=== PATIENT | female | born 1960 | race African-American/Black ===

== ENCOUNTER 2024-12-16 14:37 | Outpatient (CLI) | payer MEDICARE, MEDICAID, SELFPAY ==
[2024-12-16 15:12] LABS: Basophils Percent Auto 0.4 % (0.2-1.2); Eosinophils Absolute Auto 0.1 K/mm3 (0-0.3); Eosinophils Percent Auto 1.8 % (0-4.4); Hematocrit 39.4 % (37.0-47.0); Hemoglobin 13.1 g/dL (12.0-15.0); Immature Granulocyte Absolute 0.02 K/mm3 (0.00-0.031); Immature Granulocyte Percent A 0.3 % (0-0.5); Lymphocytes Absolute Auto 1.42 K/mm3 (0.9-3.2); Lymphocytes Percent Auto 19.4 % (18.3-44.2); Mean Corpuscular HGB Conc 33.2 g/dl (32-36); Mean Corpuscular Hemoglobin 30.1 pg (26-34); Mean Corpuscular Volume 90.6 fl (80-100); Mean Platelet Volume 10.1 fl (7.4-10.4); Monocytes Absolute Auto 0.4 K/mm3 (0.1-0.6); Neutrophils Absolute Auto 5.3 K/mm3 (1.3-6.7); Neutrophils Percent Auto 72.1 % (45.5-73.1); Platelet Count Result 230 k/mm3 (150-375); Red Blood Count 4.35 M/mm3 (4.2-5.4); Red Cell Distribution Width 13.4 % (11.5-14.5); White Blood Count 7.3 K/mm3 (4.5-10.0)
--- OUTSIDE RECORDS SUMMARY | 2024-12-16 15:24 | XMS_ITS | Data Portability ---
Author Organization MD Brandie [facility], [facility] Address [address] [facility] [address] [place] [address] Assessment No assessment recorded. Plan of Treatment Reminders Order Date Submit Date Provider Last Modified By Organization Details Last Modified Time Details Appointments None record ed. Lab None record ed. Referral None record ed. Procedures None record ed. Surgeries None record ed. Imaging None record ed. Medication Orders None record ed. Patient TargetsNo targets recorded. Patient Instructions Encounter Date Encounter Id Patient Instructions Last Modified By Organization Details Last Modified Time 10/20/2024 [id number] Continue all medications as prescribed Follow-up with PCP as scheduled Not available 10/21/2024 08:13:33 11/12/2024 [id number] Continue all medications as prescribed Follow-up with PCP and consulting specialists as scheduled Continue sigmoidoscopy every 3 months [id number] Not available 11/18/2024 20:55:16 Reason for Referral None Reported. Medical Equipment None Reported. Medications Name Sig Start Date Stop Date Status Note LastModified by Organization Details LastModified Time atorvastati n 40 mg tablet active Not Available Not Available Not Available hydrocodone 5 mg-acetamin ophen 325 mg tablet TAKE 1-2 TABLETS BY MOUTH EVERY 4 HOURS NEEDED FOR PAIN 10/21 completed Not Available Not Available Not Available acetaminoph en 300 mg-codeine 30 mg tablet TAKE 1 TABLET BY MOUTH WITH FOOD EVERY 6 HOURS NEEDED FOR PAIN DIRECTED 10/22 completed Not Available Not Available Not Available ciprofloxac in 500 mg tablet TAKE 1 TABLET BY MOUTH TWICE DAILY X10 DAYS 10/21 completed Not Available Not Available Not Available aspirin 81 mg tablet,chandu yed release TAKE ONE TABLET BY MOUTH ONE TIME DAILY active Not Available Not Available No t Available acetaminoph en 500 mg tablet Take 2 tablets every 6 hours by oral route. active Not Available Not Available No t Available amlodipine 10 mg tablet TAKE ONE TABLET BY MOUTH ONE TIME DAILY active Not Available Not Available No t Available pantoprazol e 40 mg tablet,chandu yed release TAKE ONE TABLET BY MOUTH ONE TIME DAILY active Not Available Not Available No t Available nitroglycer in 0.[address] by sublingua l route. active Not Available Not Available No t Available hydrochloro thiazide 25 mg tablet active Not Available Not Available No t Available oxybutynin chloride 5 mg tablet active Not Available Not Available No t Available lisinopril 40 mg tablet TAKE 1 TABLET BY MOUTH TWICE DAILY active Not Available Not Available No t Available cyclobenzap rine 5 mg tablet 10/22 completed Not Available Not Available Not Available Dulcolax Stool Softener (docusate) 100 mg capsule Take 1 capsule every day by oral route. active Not Available Not Available No t Available Vitals Date Recorded Body height Body mass index (BMI) Body weight Provider Name and Address Organization Details Last Updated DateTime 10/20/2024 170.18 cm 31.6 kg/m2 95155.66 g PATRICIA CORONADO, [employer] [address], [address], [facility] 10/22/2024 23:01:02 Date Recorded Body height Body mass index (BMI) Body weight Provider Name and Address Organization Details Last Updated DateTime 11/12/2024 170.18 cm 31.3 kg/m2 92566.47 g PATRICIA CORONADO, [employer] [address], [address], [facility] 11/12/2024 17:26:50 Social History Question Answer Notes LastModified by Organizat ion Details LastModified Time How Is The Health Risk Assessment Being Completed? Phone Interview -1975 Information not available 10/21/2024 Who Is Answering The Questions? Member -1975 Information not available 10/21/2024 What Is Your Primary Language? Macedonian Information no t available 10/21/2024 Are You Of , , Or [place]an Origin? No Information n ot available 10/21/2024 What Is Your Primary Race? Black/ Information not available 10/21/2024 Are You A ? No Inform ation not available 10/21/2024 If You Are A [place], Do You Get Health Care At The [facility]? None -1973 Information not available 10/21/2024 If Yes, Please Provide The Name Of The [facility] Or Address None Information not available 10/21/2024 What Is Your Marital Status? -1975 Information not available 11/12/2024 Name Of Primary Care Physician Dr Pancho Okeefe Information not available 11/12/2024 Do You Have A Living Will? No Information not available 10/21/2024 Do You Have A POA? No Inform ation not available 10/21/2024 Do You Have An Advanced Directive? No Information not available 10/21/2024 Do You Have A Caregiver? No Information not available 10/21/2024 Caregiver Name And Phone Number None Information not available 10/21/2024 Do You Have A Health Care Proxy? No Information n ot available 10/21/2024 What Is Your Height? 5 Feet 7 Inches -1975 Information not available 10/21/2024 Do You Have Any Allergies Yes Information not available 10/21/2024 If Yes, Please List Your Allergies PCN Information not available 10/21/2024 How Many Prescription Drugs Do You Take? 1 To 5 Information not available 10/21/2024 How Many Days A Week Do You Normally Get 20 Minutes Or More Of Exercise/activity? 0-2 Days Information n ot available 11/12/2024 Do You Currently Suffer From Any Pain? (Chronic Or Acute) No Information not available 11/12/2024 On A Scale Of 1-5, How Do You Rate Your Pain? None Information not available 11/12/2024 Over The Past 7 Days, How Many Servings Of Fruits Or Vegetables Did You Eat Each Day? 3 Or More -1973 Information no t available 11/12/2024 Are You On A Special Diet For Medical Or Personal Reason? No Information not available 10/21/2024 If You Are On A Special Diet Please Indicate What Type Of Diet: None Information n ot available 10/21/2024 Do You Currently Or Have You Ever Been Told You Have Asthma? No Information not available 10/21/2024 Do You Currently Or Have You Ever Been Told You Have Arthritis? No Information not available 11/12/2024 Type Of Arthritis None Informa tion not available 10/21/2024 Do You Currently Or Have You Ever Been Told You Have Cancer? Yes Information not available 10/21/2024 Type Of Cancer Rectal Cancer Informa tion not available 11/12/2024 Do You Currently Or Have You Ever Been Told You Have Diabetes Type 1?? No Information no t available 10/21/2024 Do You Currently Or Have You Ever Been Told You Have Diabetes Type 2? No Information not available 10/21/2024 Do You Currently Or Have You Ever Been Told You Have A Heart Attack?? No Information not available 10/21/2024 Age Of Heart Attack None Information not available 10/21/2024 Do You Currently Or Have You Ever Been Told You Have Heart Failure? No Information not available 10/21/2024 Do You Currently Or Have You Ever Been Told You Have Heart Rhythm Issues? No Information not available 10/21/2024 Do You Currently Or Have You Ever Been Told You Have Vascular Disease? No Information no t available 10/21/2024 Type Of Vascular Disease None Information not available 10/21/2024 Do You Currently Or Have You Ever Been Told You Have High Cholesterol? No Information no t available 11/12/2024 Do You Currently Or Have You Ever Been Told You Have Kidney Disease? No Information not available 10/21/2024 Do You Currently Or Have You Ever Been Told You Have COPD? No Information not available 10/21/2024 Do You Currently Or Have You Ever Been Told You Have Other Lung Issues (Emphysema, Fibrosis)? No Information not available 10/21/2024 Do You Currently Or Have You Ever Been Told You Have Mental Health (anxiety, Depression, Bipolar, Schizophrenia, PTSD)? No Information not available 10/21/2024 Do You Currently Or Have You Ever Been Told You Have Neurological (Alzheimer's, Dementia, Parkinson's, Convulsions, MS)? No Information no t available 10/21/2024 Do You Currently Or Have You Ever Been Told You Have Currently ? No Information not available 10/21/2024 Do You Currently Or Have You Ever Been Told You Have A Stroke? No Information not available 10/21/2024 Do You Currently Or Have You Ever Been Told You Have Other? None Information not available 11/12/2024 How Many Times Have You Been Admitted To The Hospital In The Last 12 Months? 1-2 Times Information not available 11/12/2024 In General, Would You Say Your Health Is: Good Information not available 10/21/2024 Do You Have Any Hearing Problems For Which You Need Help Such As A Hearing Aid Or TTY? No Information not available 10/21/2024 Do You Have A Problem With Seeing Or Your Vision Which Requires Glasses/contacts? No Information no t available 11/12/2024 Do You Have Any Difficulty Walking Which Requires The Use Of A Cane, Walker, Or Wheelchair? No Information not available 10/21/2024 Do You Need Assistance Bathing? No Information not available 10/21/2024 Do You Need Assistance Transferring: Getting In And Out Of A Chair Or A Bed? No Information not available 10/21/2024 Do You Need Assistance Dressing: This Includes Taking Clothes Off And Putting Clothes On, Reaching Above Your Head, And Using Buttons And Zippers? No Information not available 10/21/2024 Do You Need Assistance Eating: This Includes Cutting Your Food And Opening Any Containers With Food Inside? No Information not available 10/21/2024 Do You Need Assistance Using The Bathroom: This Includes Pulling Clothes Up And Down, And Cleaning Yourself? No Information not available 10/21/2024 Do You Need Assistance Walking: Walking More Than 10 Feet Without Using A Walker, Cane, Or Holding Onto Furniture? No Information not available 10/21/2024 Do You Need Assistance Using The Phone? No Information not available 10/21/2024 Do You Need Assistance With Transportation? No Information not available 10/21/2024 Do You Need Assistance With Housework: This Includes Sweeping, Mopping, Changing Sheets, And Taking Out The Trash? No Information not available 10/21/2024 Do You Need Assistance With Laundry: This Includes Washing, Drying, Ironing, Folding Clothing, And House Items? No Information not available 10/21/2024 Do You Need Assistance With Making Your Meals: This Includes Cleaning Food, Cutting Foods, And Cooking? No Information not available 10/21/2024 Do You Need Assistance With Shopping: This Includes Getting Groceries And Other Items Needed For Your Home? No Information not available 10/21/2024 Do You Need Assistance With Medication Management: This Includes Taking Your Medications On Time, Getting Refills? No Information not available 10/21/2024 Do You Smoke Or Use Tobacco Products? No Information not available 10/21/2024 Do You Use Recreational Drugs? No Information not available 10/21/2024 How Many Alcoholic Drinks Do You Have In A Normal Week? 0 Information no t available 10/21/2024 Has The Lack Of Transportation Kept You From Medical Appointments, Meetings, Work Or From Getting Things Need For Daily Living? No Information not available 10/21/2024 Are You Worried Or Concerned That In The Next Two Months You May Not Have Stable Housing That You Own, Rent, Or Stay In As A Part Of A Household? No Information not available 10/21/2024 Do You Have Problems With Bug Infestation Where You Live? No Information not available 10/21/2024 Do You Have Problems With Mold Where You Live? No Information not available 10/21/2024 Do You Have Problems With Lead Pipes Where You Live? No Information not available 10/21/2024 Do You Have Problems With No Solid Hand Rails Where You Live? No Information not available 10/21/2024 Do You Have Problems With An Oven Or Stove Not Working Where You Live? No Information not available 10/21/2024 Do You Have Problems With No Or Non-working Smoke Detectors Where You Live? No Information not available 10/21/2024 Do You Have Problems With Water Leaks Where You Live? No Information not available 10/21/2024 Do You Have Problems With Loose Rugs Where You Live? No Information not available 10/21/2024 Do You Have Problems With No Or Not Working Carbon Monoxide Detector Where You Live? No Information not available 10/21/2024 Do You Have Problems With No Good Lighting In Walkways Where You Live? No Information not available 10/21/2024 Within The Last 12 Months Have You Worried That Your Food Would Run Out Before You Had Money To Buy More? Never True Information n ot available 10/21/2024 With In The Last 12 Months, Did The Food You Bought Just Didn't Last And You Didn't Have Money To Get More? Never True Information not available 10/21/2024 Does Anyone, Including Friends And Family, Physically, Emotionally, Or Financially Try To Hurt You? No Information not available 10/21/2024 Over The Past 2 Weeks How Often Have You [place] Down, Depressed, Or Hopeless? Not At All Information not available 10/21/2024 Over The Past 2 Weeks How Often Have You [place] Little Interest Or Pleasure In Doing Things? Not At All Information not available 10/21/2024 During The Last 6 Months, Have You Experienced Any Stress? No Information not available 11/12/2024 During The Last 6 Months, Have You Experienced Any Anxiety? No Information not available 10/21/2024 During The Last 6 Months, Have You Experienced Any Loneliness? No Information not available 10/21/2024 During The Last 6 Months, Have You Experienced Any Fatigue? No Information not available 10/21/2024 Have You Had A Pap Smear (Cervical Cancer) In The Last 12 Months? No Information not available 11/12/2024 Have You Had A Mammogram In The Past 24 Months? Yes Information not available 10/21/2024 Have You Had A Bone Density And/or Osteoporosis Screening? Yes Information not available 10/21/2024 Have You Had A Prostate Exam? N/A Information not available 10/21/2024 Have You Had A Colorectal Cancer Screening? Yes Information not available 10/21/2024 What Type Of Colorectal Screening Have You Had? Colonoscopy Information not available 11/12/2024 Date Of Your Last Colorectal Screenin Yrs Ago ..dx With Rectal Cancer Information not available 11/12/2024 Results Of Your Last Colorectal Screening: Abnormal Information not available 11/12/2024 Have You Had A Flu Vaccine In The Last Year? Yes Information not available 10/21/2024 Have You Had A Pneumonia Vaccine? Yes Information n ot available 10/21/2024 What Is Your Weight? 202 Information not available 11/12/2024 Sex: Unknown Functional Status None recorded. Mental Status None recorded. Family History Nothing Reported. Medical History No medical history recorded. Gynecological HistoryNo gynecological history recorded. Obstetrics History GPAL:G 0 P 0 0 0 0 Past Encounters Encounter ID Performer Location Encounter Start Date Encounter Closed Date Diagnosis/Indication Diagnosis SNOMED-CT Code Diagnosis ICD10 Code Diagnosis Note [id number] GRACIELA HOPSON [facility] [address] [address] 10/20/2024 17:14:26 11/19/2024 18:54:54 Essential hypertension 74737761 I10 Stable- continue HCTZ and lisinopril as prescribed Follow-up with PCP as scheduled Hyperlipidemia 90348079 E78.5 Stable- continue atorvastat in as prescribed Follow-up with PCP as scheduled Gastroesop hageal reflux disease without esophagitis 656597028 K21.9 Stable- continue pantoprazo le as prescribed Follow-up with PCP as scheduled Osteoarthr itis of lumbar spinal facet joint 553267648 M47.9 Stable- continue acetaminop hen as prescribed Follow-up with PCP as scheduled [id number] GRACIELA HOPSON [facility] [address] [place] [address] 11/12/2024 17:01:41 11/27/2024 12:08:01 Gastroesophageal reflux disease 317135184 K21.9 Stable- continue pantoprazo le as prescribed Follow-up with PCP as scheduled Stable angina 207072651 I20.89 Stable- continue nitroglyce rin as prescribed Follow-up with PCP as scheduled Essential hypertension 89908717 I10 Stable- continue amlodipine , HCTZ and lisinopril as prescribed Follow-up with PCP as scheduled Hyperlipidemia 80216687 E78.5 Stable- continue atorvastat in as prescribed Follow-up with PCP as scheduled Constipation 61646161 K5 9.00 Stable- continue dulcolax as prescribed Follow-up with PCP as scheduled Osteoarthr itis of lumbar spinal facet joint 602258865 M47.9 Stable- continue acetaminop hen as prescribed Follow-up with PCP as scheduled Overactive urinary bladder 446477136 N32.81 Stable- continue oxybutynin as prescribed Follow-up with PCP as scheduled Health Concerns Section Related Observation LastModified by Organization Detai ls LastModified Time None Recorded Concern Status LastModified by Organization Details LastModified Time None Recorded Advance Directives Directive None Recorded Payers Encounter Date Sequence Insurance Name Policy Number Policy Sears Covered Member ID Sears Member ID Guarantor Name 10/20/2024 1 [facility] (MEDICARE REPLACEMENT/A DVANTAGE - HMO) [id number] Louisa Ochoa [id number] Louisa Ochoa 11/12/2024 1 [facility] (MEDICARE REPLACEMENT/A DVANTAGE - HMO) [id number] Louisa Ochoa [id number] Louisa Ochoa Notes Date Note Type Note Provider Name and Address Organization Details Recorded Time 10/20/2024 text/html 63 y/o AAF who w as seen for a Synchronous audio-visual telehealth visit. Recently relocated from [place] and in need of sigmoidoscopy. GRACIELA HOPSON [address] [address], [place], [phone], [facility] 10/22/2024 23:15:07 11/12/2024 text/html 64 y/o female wh o was seen for a Synchronous audio-visual telehealth visit. GRACIELA HOPSON [address] [address], [place], [phone], [facility] 11/18/2024 20:55:33 OBGyn Episode No OBEpisode recorded.
--- OUTSIDE RECORDS SUMMARY | 2024-12-16 15:25 | XMS_ITS | Data Portability ---
Author Organization [place] - [facility] Address [address] [place] [address] Care Team Providers Care Pompom Maker Name Role Phone MARIANNE ANABEL Referring Provider [phone] Assessment Encounter Date Assessment Date Assessment LastModified by Organization Details LastModified Time 05/28/2023 05/28/2023 Wrist splints at night time only x 6 weeks PT for neck pain/paresthe [email or web address] RTC 2mo --- reassess, consider emg/ncs at that time. [email or web address] Not available 05/28/2023 17:24:07 07/31/2023 07/31/2023 Continue Wrist splints at night PT for neck pain/tension RTC 3mo [email or web address] Not available 07/31/2023 15:18:49 10/25/2023 10/25/2023 Continue Wrist splints at night RTC PRN new or worsening symptoms [email or web address] Not available 10/25/2023 13:14:45 Plan of Treatment Reminders Order Date Submit Date Provider Last Modified By Organization Details Last Modified Time Details Appointments None recorded. Lab None recorded. Referral physical therapist referral 2022 023 [email or web address], [address] [place], [address], 13:17:08 Procedures None recorded. Surgeries None recorded. Imaging None recorded. Medication Orders None recorded. Patient TargetsNo targets recorded. Patient Instructions Encounter Date Encounter Id Patient Instructions Last Modified By Organization Details Last Modified Time 05/28/[id number] Yumiko Pugh . I provided direction and supervision to FIELD ADMINISTRATIVE ASSISTANT at time of the visit. I developed and plan of care and I agree with the contents of this note including assessment and plan. [email or web address] Not available 06/08/2023 15:25:15 Reason for Referral Physical Therapist Referral for Neck pain Referring Physician: Marilyn Mcgee, Neurology, Encounter Date: 05/28/2023 Problems Name Problem SNOMED Code Status Onset Date Resolution Date Notes Provider Name and Address Organization Details Recorded Time Paresthesia of upper limb 41000924 Active 2022 [place] [address], [address], [address] , [facility] 17:16:08 Neck pain 90783941 Active 2022 [place] [address] [address], [address], [place], [address] , [facility] 17:22:29 Problem Notes None recorded. Procedures Surgical History Date Name Laterality Status Provider Name and Address Organization Details Recorded Time Hysterectomy completed Elvin Roman [place] - [facility] 05/28/2023 16:28:42 Imaging Results None recorded. Procedure Notes None recorded. Medical Equipment None Reported. Allergies No known drug allergies Medications Name Sig Start Date Stop Date Status Note LastModified by Organization Details LastModified Time potassium chloride ER 10 mEq capsule,ext ended release 05/28 completed Not Available Not Available Not Available acetaminoph en 325 mg tablet Take 2 tablets by mouth every 6 hours if needed for mild pain, moderate pain, headaches or fever. active Not Available Not Available No t Available atorvastati n 20 mg tablet TAKE ONE TABLET BY MOUTH ONE TIME DAILY AT NIGHT active Not Available Not Available No t Available clindamycin HCl 300 mg capsule TAKE 2 CAPSULES BY MOUTH 3 TIMES DAILY. 05/28 completed Not Available Not Available Not Available atorvastati n 10 mg tablet TAKE ONE TABLET BY MOUTH ONE TIME DAILY 07/31 completed Not Available Not Available Not Available ondansetron HCl 4 mg tablet TAKE ONE TABLET BY MOUTH EVERY EIGHT HOURS NEEDED FOR NAUSEA/VO MITING FOR 5 DAYS 05/28 completed Not Available Not Available Not Available Pedialyte oral solution 10/25 completed Not Available Not Available Not Available erythromyci n 500 mg tablet,chandu yed release TAKE 1 TABLET BY MOUTH EVERY 8 HOURS DAILY. 05/28 completed Not Available Not Available Not Available metronidazo le 500 mg tablet 05/28 completed Not Available Not Available Not Available aspirin 81 mg tablet,chandu yed release TAKE ONE TABLET BY MOUTH ONE TIME DAILY active Not Available Not Available No t Available acetaminoph en 500 mg tablet TAKE ONE OR TWO TABLETS BY MOUTH EVERY SIX HOURS NEEDED FOR PAIN/ FEVER. MAX 6 TABLETS IN 24 HOURS 05/28 completed Not Available Not Available Not Available Fleet Enema 19 gram-7 gram/118 mL Start 1st enema rectally 3 hours prior to check in. After stooling from the 1st enema, repeat the process using 2nd enema 05/28 completed Not Available Not Available Not Available famotidine 20 mg tablet TAKE ONE TABLET BY MOUTH TWICE DAILY NEEDED FOR GERD/FRANCISCO JAVIER RITIS 05/28 completed Not Available Not Available Not Available amlodipine 10 mg tablet TAKE ONE TABLET BY MOUTH ONE TIME DAILY active Not Available Not Available No t Available pantoprazol e 40 mg tablet,chandu yed release TAKE ONE TABLET BY MOUTH DAILY NEEDED FOR GERD/FRANCISCO JAVIER RITIS active Not Available Not Available No t Available nitroglycer in 0.[address] 1 tablet (0.4MG) by sublingua l route as needed for chest pain. May repeat every 5 minutes x 2. Maximum 3 tablets. Go to ER if chest pain persists active Not Available Not Available No t Available docusate sodium 100 mg capsule active Not Available Not Available N ot Available hydrochloro thiazide 25 mg tablet TAKE ONE TABLET BY MOUTH ONE TIME DAILY active Not Available Not Available No t Available lorazepam 1 mg tablet Take 1 tablet (0.5 mg) orally one hour prior to imaging, may repeat dose once if ineffecti ve after 30 minutes. 05/28 completed Not Available Not Available Not Available ibuprofen 600 mg tablet TAKE 1 TABLET BY MOUTH 3 TIMES DAILY WITH FOOD NEEDED. active Not Available Not Available No t Available neomycin 500 mg tablet 05/28 completed Not Available Not Available Not Available docusate sodium 250 mg capsule 07/31 completed Not Available Not Available Not Available oxybutynin chloride 5 mg tablet TAKE ONE TABLET BY MOUTH TWICE DAILY active Not Available Not Available No t Available lisinopril 40 mg tablet TAKE ONE TABLET BY MOUTH TWICE DAILY active Not Available Not Available No t Available ondansetron 4 mg disintegrat ing tablet active Not Available Not Available N ot Available oxycodone 5 mg tablet 07/31 completed Not Available Not Available Not Available azithromyci n 500 mg tablet 10/25 completed Not Available Not Available Not Available Oyster Shell Calcium-Vit carrasco D3 500 mg-10 mcg (400 unit) tablet TAKE ONE TABLET BY MOUTH TWICE DAILY active Not Available Not Available No t Available Gavilyte-C 240 gram-22.72 gram-6.72 gram-5.84 gram oral solution TAKE DIRECTED. 05/28 completed Not Available Not Available Not Available GaviLyte-G 236 gram-22.74 gram-6.74 gram-5.86 gram oral solution Take by mouth as directed per the Bowel Prep Instructi ons Schedule. 07/31 completed Not Available Not Available Not Available ClearLax 17 gram/dose oral powder mix 17g with 8 oz. water, juice, soda, coffee or tea and take by mouth daily active Not Available Not Available No t Available Flowflex COVID-19 Antigen Home Test kit ADMINISTE R PER PROTOCOL 05/28 completed Not Available Not Available Not Available Vitals Date Recorded Body weight Heart rate Systolic blood pressure Diastolic blood pressure Provider Name and Address Organization Details Last Updated DateTime 05/28/2023 85977.47 g 88 /min 138 mm[Hg] 83 mm[Hg] Elvin Roman [place] - [facility] 05/28/2023 16:31:06 Date Recorded Heart rate Systolic blood pressure Diastolic blood pressure Provider Name and Address Organization Details Last Updated DateTime 07/31/2023 83 /min 127 mm[Hg] 81 mm[Hg] Maxwell Alicea [place] - [facility] 07/31/2023 14:52:12 Date Recorded Body weight Body mass index (BMI) Body height Heart rate Systolic blood pressure Diastolic blood pressure Provider Name and Address Organization Details Last Updated DateTime 3 47217.4 7 g 31.3 kg/m2 170.18 cm 74 /min 150 mm[Hg] 95 mm[Hg] Fatimah Deras [place] - [facility] 3 12:57:00 Social History Question Answer Notes LastModified by Organizat ion Details LastModified Time 1. Alcohol Do Not Drink Information not available 05/28/2023 2. Drug Use Never User Information not available 05/28/2023 3. Marijuana Never User Information not available 05/28/2023 4. Marital Status Single Information not available 05/28/2023 5. Occupation Unemployed Social Security For Medical Reasons [email or web address] Information not available 05/28/2023 Sex: Unknown Functional Status None recorded. Mental Status None recorded. Family History Relationship Description Onset Age of this Age Resolved Age Notes LastModified by Organization Details LastModified Time Father Malignant neoplasm of liver Not available 05/06 16:25:09 Father Dementia Not availa ble 05/28/2023 16:25:19 Mother Congestive heart failure [email or web address] Not available 05/06 16:25:27 Medical History Condition Response High Blood Pressure Y Atrial Fibrillation N Head Trauma/Injury N Depression N Brain Aneurysm N Anxiety Disorder N Stroke N Kidney Disease N Migraines N Brain Tumors N Ulcers N Bleeding Disorder N Seizures N No previous medical history N High Cholesterol Y Respiratory Problems N Thyroid Problems N Anemia N Multiple Sclerosis N Diabetes N Syncope N Sleep Apnea N Heart Disease N Gynecological HistoryNo gynecological history recorded. Obstetrics History GPAL:G 0 P 0 0 0 0 Past Encounters Encounter ID Performer Location Encounter Start Date Encounter Closed Date Diagnosis/Indication Diagnosis SNOMED-CT Code Diagnosis ICD10 Code Diagnosis Note [id number] MD Regla [facility] [place] [address] [place] [address] [address] [place] [address] 05/28/2023 16:07:24 05/28/2023 17:25:05 Paresthesia of upper limb 44949878 R20.2 Neck pain 76796031 M54.2 [id number] Marilyn Mcgee NP [address] [place] [address] 07/31/2023 14:29:07 08/01/2023 01:14:03 Neck pain 08574923 M54.2 Paresthesi a of upper limb 73308173 R20.2 IMPROVED [id number] Marilyn Mcgee NP [place] [address] [place] [address] [address] [place] [address] 10/25/2023 12:30:01 10/25/2023 13:14:41 Paresthesia of upper limb 75678375 R20.2 resolved with wrist splinting Neck pain 52638502 M54.2 resolved Health Concerns Section Related Observation LastModified by Organization Detai ls LastModified Time None Recorded Concern Status LastModified by Organization Details LastModified Time None Recorded Advance Directives Directive None Recorded Payers Encounter Date Sequence Insurance Name Policy Number Policy Sears Covered Member ID Sears Member ID Guarantor Name 05/28/2023 2 [facility] (MEDICAID REPLACEMENT HMO) Louisa Ochoa [id number] Louisa Ochoa 07/31/2023 2 [facility] (MEDICAID REPLACEMENT HMO) Louisa Ochoa [id number] Louisa Ochoa 10/25/2023 2 [facility] (MEDICAID REPLACEMENT HMO) Louisa Ochoa [id number] Louisa Ochoa 10/25/2023 1 [place]ICARE [place]: [facility] Louisa Ochoa [id number] Louisa Ochoa Notes Date Note Type Note Provider Name and Address Organization Details Recorded Time 05/28/2023 text/html 62 yo female referred to the clinic for numbness in bilateral hands. Onset of symptoms 1 year ago. She c/o numbness in hands, wakes up in the middle of the night and her hands are asleep. She reports it only happens when lying on extremities. After she moves around symptoms resolve. NO electrical stabbing pains. She c/o tension in her left trap, neck pain/tension. No focal weakness.Symptoms do not occur during the dayNo pain in wrists or [place] [address], [address], [place], [address], [facility] 06/08/2023 15:25:20 07/31/2023 text/html 62 yo female follow up for numbness in bilateral hands. Asymptomatic during the day.Wearing wrist splints at night with relief, reports no longer experiencing numbness at night.She c/o tension in her left trap, neck pain/tension. She did not go to physical therapy. No focal weakness.No pain in wrists or handsNo [place] [address], [address], [place], [address], [place] [facility] 07/31/2023 15:19:28 10/25/2023 text/html 62 yo female follow up for numbness in bilateral hands. Symptoms improved. Wearing wrist splints at night with relief, reports no longer experiencing numbness unless she forgets to wear the splint.Asymptomati c during the day.Denies neck pain/tensionNo focal weakness.No pain in wrists or handsNo [place] [address], [address], [place], [address], [place] [facility] 10/25/2023 13:15:09 OBGyn Episode No OBEpisode recorded.
--- OUTSIDE RECORDS SUMMARY | 2024-12-16 15:25 | XMS_ITS | Clinical Summary ---
Author Organization [facility] Address [address] [place] [address] Phone Care Team Providers Care Under Ground Miner Name Role Phone Bryan Saenz MD Primary Care Provider [phone] Encounters Date Type Department Care Team Description 10/09/2024 Telephone [facility] [address] [place] [address] Irene Owen from Last 3 Months Social History Tobacco Use Types Packs/Day Years Used Date Smoking Tobacco: Never Assessed Comments Unknown Sex and Gender Information Value Date Recorded Sex Assigned at Not on file Legal Sex Female 9:45 AM CDT Gender Identity Not on file Sexual Orientation Not on file Plan of Treatment Health Maintenance Due Date Last Done Comments Hepatitis C Virus (HCV) Screening 1958 Pap Smear 1979 Cervical Cancer Screening (CCS) 1988 HPV/Cotest 1988 Colonoscopy 2003 Colorectal Cancer Screening 2003 Cologuard 2008 Immunochemical Fecal Occult Blood 2008 Pneumococcal Immunization (50+ years) (1 of 1 - PCV) 2008 Zoster Immunization (1 of 2) 2008 Influenza Immunization (#1) 07/06/202409/05, 06/24/2021, 09/03/2020, Additional history exists SARS-COV-2 Immunization (2 - 2023- season) 2024 09/15/2022 DEXA Bone Density 07/30/2026 07/30/2024 Mammogram 07/30/2026 07/30/2024 Respiratory Syncytial Virus (RSV) Immunization (Adult) (1 - 1-dose 75+ series) 2033 TdaP Immunization Completed 07/02/2017, 09/08/2009 Hepatitis B Immunization Aged Out No longer eligible based on patient's age to complete this topic Meningococcal Immunization (ACWY) Aged Out No longer eligible based on patient's age to complete this topic Rotavirus Immunization Aged Out No lo nger eligible based on patient's age to complete this topic [facility] Teams Under Ground Miner Relationship Specialty Start Date End Date Bryan Saenz MD [address] [place] [address] PCP - General Family Medicine 07/29/24
--- OUTSIDE RECORDS SUMMARY | 2024-12-16 15:25 | XMS_ITS | Clinical Summary ---
Author Organization [facility] Address [address] [place] [address] Care Team Providers [employer] Name Role Phone Bryan Saenz MD Primary Care Provider [phone] Allergies Active Allergy Reactions Criticality Noted Date Comments Diphenhydramine Hives,Rash Medium 06/08/2023 Domiphen Hives Medium 06/08/2023 Penicillin Swollen tongue High 05/06/2023 Penicillins Hives High 09/12/2011 Pravastatin Hives Medium 06/08/2023 Medications amLODIPine (NORVASC) 10 mg tablet Take 1 tablet (10 mg total) by mouth daily 90 tablet 3 03/05/20 24 Active aspirin 81 mg enteric coated tablet Take 1 tablet (81 mg total) by mouth daily 90 tablet 3 03/05/20 24 Active oxyBUTYnin (DITROPAN) 5 mg tablet Take 1 tablet (5 mg total) by mouth 2 (two) times a day 180 tablet 3 03/05/20 24 Active lisinopriL (PRINIVIL,ZESTRIL) 40 mg tablet Take 1 tablet (40 mg total) by mouth daily 90 tablet 3 03/05/[address] (PROTONIX) 40 mg EC tablet Take 1 tablet (40 mg total) by mouth daily 90 tablet 3 03/05/20 24 Active multivit-min/iron/FA/vit K/lut (CENTRUM SILVER WOMEN ORAL) Take 1 tablet by mouth daily 02/28/20 23 Active famotidine (PEPCID) 20 mg tablet Take by mouth as needed 08/08/20 22 Active calcium carbonate-vitamin D3 (Calcium 500 + D) 1,250 mg (500 mg elemental)-400 unit tablet Take 1 tablet by mouth 2 (two) times a day 02/28/20 23 Active atorvastatin (LIPITOR) 40 mg tabletIndications:Pure hypercholesterolemia Take 1 tablet (40 mg total) by mouth daily 90 tablet 3 04/23/20 24 025 Active nitroglycerin (NITROSTAT) 0.[address] 1 TABLET (0.4 MG TOTAL) UNDER THE TONGUE EVERY 5 (FIVE) MINUTES NEEDED FOR CHEST PAIN 50 tablet 5 04/27/20 24 Active HYDROcodone-acetaminophe n (NORCO) 5-325 mg per tabletIndications:Pain Take 1-2 tablets by mouth every 4 (four) hours as needed for pain Do not exceed 8 tablets/day . 20 tablet 09/09/20 24 Active polyethylene glycol (MIRALAX) 17 gram packetIndications:consti pation Take 1 packet (17 g total) by mouth 2 (two) times a day Active hydroCHLOROthiazide (HYDRODIURIL) 25 mg tablet Take 1 tablet (25 mg total) by mouth daily Active Active Problems Problem Noted Date Diagnosed Date Musculoskeletal chest pain 10/31/2024 Hypertension, essential 03/03/2024 Assessment & Plan (06/02/2024 11:52 AM CDT): Blood Pressure Management BP Readings from Last 3 Encounters: 06/02/24 130/82 03/19/24 154/73 03/03/24 120/70 Chronic condition Status - is well controlled. Current medications are: Lisinopril 40 mg daily, HCTZ 25 mg daily, Amlodipine 10 mg daily Patient is compliant with medications. Patient denies any side effects or adverse side effects from the medication/s. Follow a low salt diet Monitor blood pressure regularly at home Continue current management unless change made above The 10-year ASCVD risk score (Estela MALDONADO, et al., 2019) is: 6.8% Values used to calculate the score: Age: 63 years Sex: Female Is Non- : Yes Diabetic: No Tobacco smoker: No Systolic Blood Pressure: 130 mmHg Is BP treated: Yes HDL Cholesterol: 63 mg/dL Total Cholesterol: 142 mg/dL Lab Results Component Value Date LDLCALC 64 03/03/2024 Lab Results Component Value Date GLUCOSE 99 03/19/2024 CALCIUM 10.4 (H) 03/19/2024 SODIUM 138 03/19/2024 POTASSIUM 3.6 03/19/2024 CO2 24 03/19/2024 CHLORIDE 102 03/19/2024 BUNSER 15 03/19/2024 CREATININE 0.93 03/19/2024 Assessment & Plan (03/03/2024 8:54 AM CDT): Blood Pressure Management BP Readings from Last 3 Encounters: 03/03/24 120/70 12/30/23 147/68 12/23/23 144/77 Chronic condition Status - is adequately controlled. Current medications are: Lisinopril 40 mg daily, HCTZ 25 mg daily, Amlodipine 10 mg daily Patient is compliant with medications. Patient denies any side effects or adverse side effects from the medication/s. Follow a low salt diet Monitor blood pressure regularly at home Continue current management unless change made above The ASCVD Risk score (Estela MALDONADO, et al., 2019) failed to calculate for the following reasons: Cannot find a previous HDL lab Cannot find a previous total cholesterol lab The smoking status is invalid No results found for: LDLCALC Lab Results Component Value Date GLUCOSE 95 12/30/2023 CALCIUM 11.0 (H) 12/30/2023 SODIUM 139 12/30/2023 POTASSIUM 4.0 12/30/2023 CO2 29 12/30/2023 CHLORIDE 100 12/30/2023 BUNSER 15 12/30/2023 CREATININE 0.85 12/30/2023 Pure hypercholesterolemia 03/03/2024 Assessment & Plan (06/02/2024 11:23 AM CDT): - chronic condition - status: is adequately controlled. - current management/medications: Atorvastatin 10 mg nightly - other comorbid conditions:hypertension, Obesity - patient is compliant with medications. - most recent LDL as shown below - maintain a healthy weight, diet - will monitor closely - continue current management Lab Results Component Value Date CHOL 142 03/03/2024 Lab Results Component Value Date HDL 63 03/03/2024 Lab Results Component Value Date LDLCALC 64 03/03/2024 Lab Results Component Value Date TRIG 73 03/03/2024 Lab Results Component Value Date ALT 13 03/19/2024 AST 18 03/19/2024 ALKPHOS 102 03/19/2024 BILITOT 0.7 03/19/2024 Assessment & Plan (03/03/2024 8:45 AM CDT): - chronic condition - status: is adequately controlled. - current management/medications: Atorvastatin 10 mg nightly - other comorbid conditions:hypertension, Obesity - patient is compliant with medications. - most recent LDL as shown below - maintain a healthy weight, diet - will monitor closely - continue current management Lipi dpanel 09/2023 as shown below CHOLESTEROL, TOTAL <200 mg/dL 134 HDL CHOLESTEROL > OR = 50 mg/dL 62 TRIGLYCERIDES <150 mg/dL 55 [facility] LDL-CHOLESTEROL mg/dL (calc) No results found for: LDLCALC Lab Results Component Value Date ALT 22 12/30/2023 AST 23 12/30/2023 ALKPHOS 87 12/30/2023 BILITOT 0.3 12/30/2023 Prediabetes 03/03/2024 Assessment & Plan (06/02/2024 11:19 AM CDT): - chronic condition, not at goal - not on any medications, managed via lifestyle - has been eating better - continue current management - check labs, orders placed with results as shown below A1c 6.2 on Lab Results Component Value Date HGBA1C 6.5 (H) 03/03/2024 A1c 09/2023 = 6.1 Assessment & Plan (03/03/2024 8:44 AM CDT): - chronic condition, stable status - not on any medications, managed via lifestyle - continue current management - check labs, orders placed A1c 09/2023 = 6.1 No results found for: HGBA1C Adenocarcinoma of rectosigmoid junction (CMS/HCC ) 03/03/2024 Assessment & Plan (06/02/2024 11:29 AM CDT): - history of T2 N0 rectal cancer status post robotic TAMIS on 12/20/2022 - was following with Oncology in [place] and was under surveillance - has hx of partial hysterectomy - established care here with oncology - has had imaging MRI of pelvis, CT Chest abdomen and pelvis without any recurrence of metastatic disease - done on 03/2024 - she has been referred to GI by Oncology already MRI Pelvis Soft Tissue W/WO Contrast 09/2023 IMPRESSION: 1. No definite evidence of residual, recurrent, or metastatic disease in the pelvis. 2. Stable 6 mm mesorectal node with rounded morphology. Attention on follow-up. Assessment & Plan (03/03/2024 9:30 AM CDT): - history of T2 N0 rectal cancer status post robotic TAMIS on 12/20/2022 - was following with Oncology in [place] and was under surveillance - has hx of partial hysterectomy - establish care here with oncology, referral placed MRI Pelvis Soft Tissue W/WO Contrast 09/2023 IMPRESSION: 1. No definite evidence of residual, recurrent, or metastatic disease in the pelvis. 2. Stable 6 mm mesorectal node with rounded morphology. Attention on follow-up. DDD (degenerative disc disease), cervical 2023 Assessment & Plan (03/03/2024 9:01 AM CDT): - chronic condition - reviewed MRI of cervical spine as shown below - states she was given a wrist brace to use at [facility] as she wakes up with numbness in her arm - denies any neck pain at this time MRI Cervical spine WO Contrast 02/2023 Reason for Exam: Cervical spondylosis with radiculopathy, weakness, or numbness, left DISCS/SPINAL CANAL/NEURAL FORAMINA: C2-C3: Mild spinal canal stenosis measuring 9 mm no neuroforaminal stenosis. C3-C4: 2.5 mm disc bulge. Moderate spinal canal stenosis measuring 8 mm. Mild anterior cord deformity . Mild right and moderate left neural foraminal stenosis. Anterior and posterior osteophytes noted. C4-C5: 1.5 m disc bulge. Moderate spinal canal stenosis measuring 8 mm with mild ventral cord deformity mild bilateral neuro foraminal stenosis. Anterior and posterior osteophytes noted. C5-C6: 2 mm central disc herniation. Mild spinal canal stenosis measuring 1.0 cm. No right neural femoral stenosis. Moderate left neural femoral stenosis. C6-C7: 2.5 mm disc bulge. Mild spinal canal stenosis measuring 1.0 cm mild right and no left neural foraminal stenosis. Anterior and posterior osteophytes noted. Modic type I changes. C7-T1: 3 mm disc bulge with 3 mm grade 1 anterolisthesis of C7 on T1. No spinal canal stenosis. Mild bilateral neural foraminal stenosis. Impression 1. Degenerative changes in the cervical spine as described. GERD (gastroesophageal reflux disease) Assessment & Plan (06/02/2024 11:08 AM CDT): - chronic condition, stable - currently on Pantoprazole 40 mg daily - she is not sure if she has had an EGD before or not - Continue on current meds, encouraged healthy diet and exercise - Discussed increased risk of cdif and vit B12 deficiency with usp use of PPI. - continue current management Recommend the following changes: - Avoid trigger foods (such as spicy foods, fried foods, onions, peppermints, chocolate, high acid foods and juices, caffeinated beverages, carbonated beverages, and tomato based products). - Avoid alcohol take. - Avoid routine use of NSAIDs. - Avoid lying down for 2-3 hours after eating. - Weight loss encouraged. - Eat smaller meals. - Avoid tobacco use. - Sleep on left side. - may sleep with bed propped. - Avoid wearing tight clothing that puts pressure on the stomach. 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 - recheck labs, orders placed Recommend the following changes: - Avoid trigger foods (such as spicy foods, fried foods, onions, peppermints, chocolate, high acid foods and juices, caffeinated beverages, carbonated beverages, and tomato based products). - Avoid alcohol take. - Avoid routine use of NSAIDs. - Avoid lying down for 2-3 hours after eating. - Weight loss encouraged. - Eat smaller meals. - Avoid tobacco use. - Sleep on left side. - may sleep with bed propped. - Avoid wearing tight clothing that puts pressure on the stomach. Other chest pain 03/03/2024 Assessment & Plan (03/03/2024 9:29 AM CDT): - chronic, recurring issue for over a year - describes it as severe chest pain - very sharp pain that radiates into her neck, occurring every 3 or more months, but has not had any since beginning of 2023 - s/p stress testing on 02/2023 as shown below - she was seen in ED in year 2022 - states has had 2 stress tests in the past 3 years - she was given nitroglycerine which she uses as needed every few months which resolved it in few minutes - currently also on aspirin 81 mg daily, she does not know why she was started on the medication - on statin therapy for pure hypercholesterolemia - suspect it could be esophageal spasms and she also has known GERD --> recommend GI evaluation in the near future S/p cardiac stress test 02/2023 NM Cardiac Stress [employer] NM Cardiac Rest/Stress [employer] Reason for Exam: Angina pectoris or anginal equiv sympt Impression: No evidence of reversible myocardial perfusion defect Primary osteoarthritis of knees, bilateral 03/03 Assessment & Plan (06/02/2024 11:22 AM CDT): - chronic, recurring issue - had reported she is bone on bone on both knees - obtained XR of bilateral knees in prior visit, results as shown below - she is not bone on bone, inform patient about it - pain with going down the stairs in an issue - recommend use of tylenol as needed for now XR bilateral knee 02/26 XR KNEE BILATERAL 3 VIEWS REASON FOR STUDY: chronic bilateral knee pain, reports hx of OA Chronic knee pain No surgeries or injections States getting updated XR for new doctor FINDINGS: Three views each knee submitted without comparison. No acute fractures are identified. Alignment is normal. There is mild lateral predominant tricompartmental bilateral knee osteoarthritis. Trace effusions are present. Arterial atherosclerosis is noted. IMPRESSION: Mild lateral predominant tricompartmental bilateral knee osteoarthritis. Assessment & Plan (03/03/2024 9:29 AM CDT): - chronic, recurring issue - reports she is bone on bone on both knees - obtain XR of bilateral knees, order placed Personal history of tobacco use 03/03/2024 Assessment & Plan (06/02/2024 11:22 AM CDT): Social History Tobacco Use Smoking Status Former Average packs/day: 0.1 packs/day for 36.0 years (2.7 ttl pk-yrs) Types: Cigarettes Start date: 1979 Smokeless Tobacco Not on file - Chronic, continue with abstinence - Lung cancer screening - up to date, s/p CT Chest w contrast 09/2023 Assessment & Plan (03/03/2024 9:31 AM CDT): Social History Tobacco Use Smoking Status Former Average packs/day: 0.1 packs/day for 36.0 years (2.7 ttl pk-yrs) Types: Cigarettes Start date: 1979 Smokeless Tobacco Not on file - Chronic, continue with abstinence - Lung cancer screening - up to date, s/p CT Chest w contrast 09/2023 History of alcohol use 03/03/2024 Assessment & Plan (03/03/2024 9:14 AM CDT): - reports hx of excessive alcohol use for over 20 years - does not drink any alcohol in over 8 years - keep it up Encounter for screening mamm ogram for malignant neoplasm of breast 03/03/2024 Assessment & Plan (03/03/2024 9:32 AM CDT): - will let us know contact information of the prior location where she had mammogram in [place] so we can request an obtain records History of rectal cancer 12/23/2023 Resolved Problems Problem Noted Date Diagnosed Date Resolved Date Urinary tract infection in female 12/23/2023 03/03/2024 Encounters Date Type Department Care Team Description 11/03/2024 2:05 PM ELECTRICAL SUPERINTENDENT - 11/03/2024 3:10 PM ELECTRICAL SUPERINTENDENT Surgery [facility] Cardiac Catheterization [address] [place] [address] [place] Perez MD LEFT HEART CATHETERIZATION WITH CORONARY ANGIOGRAPHY AND WITH OR WITHOUT LEFT VENTRICULOGRAM [id number] 10/31/2024 12:26 PM ELECTRICAL SUPERINTENDENT - 11/03/2024 2:30 PM ELECTRICAL SUPERINTENDENT Hospital Encounter [facility] Acute Medicine [address] [place] [address] Hilario Liu MD Holland, Kristy Lynn, Kingsley Cifuentes, MD Dela Cruz, Brandin Lemos Jr., MD Chest pain, unspecified type (Primary Dx); Musculoskeletal chest pain [R07.89]; Gastroesophageal reflux disease, unspecified whether esophagitis present [K21.9]; History of rectal cancer [Z85.048]; Hypertension, essential [I10]; Personal history of tobacco use [Z87.891]; Pure hypercholesterolemia [E78.00]; History of alcohol use [Z87.898]; Prediabetes [R73.03] Discharge Disposition: Discharge to home or self care 10/31/2024 12:10 PM ELECTRICAL SUPERINTENDENT - 10/31/2024 11:59 PM ELECTRICAL SUPERINTENDENT Hospital Encounter [facility] Emergency, Room R Discharge Disposition: Discharge to home or self care from Last 3 Months Immunizations Name Administration Dates Next Due H1N1 Inj 11/02/2009 Influenza, Quadrivalent, Rec ombinant, Egg Free, Preservative Free, Intramuscular 06/24/2021 Influenza, Quadrivalent, Spl it, Intramuscular 09/18/2019,08/10/2017,09/05/2016 Influenza, Quadrivalent, Spl it, Preservative Free, Intramuscular 09/17/2023,09/03/2020 Influenza, Split 08/27/2012,11/02/2009 Influenza, Trivalent, IM (MDV) 08/27/2012,2008 Moderna Sars-cov-2 Bivalent Vaccine 50 Mcg/0.5 mL (12+ YRS)-Blue/Marroquin 09/15/2022 Tdap 07/02/2017,09/08/2009,09/08/2009 Surgical History Surgery Date Site/Laterality Comments HYSTERECTOMY partial Medical History Medical History Date Comments Rectosigmoid cancer (CMS/HCC) (HCC) Family History Medical History Relation Name Comments Breast cancer Paternal Grandmother Relation Name Status Comments Paternal Grandmother Social History Tobacco Use Types Packs/Day Years Used Date Smoking Tobacco: Former Cigarettes 0.1 36 S tarted: 1981 Tobacco Cessation:Counseling Given: Not Answered [facility] Utilities Answer Date Recorded In the past 12 months has Your Office Agent, gas, oil, or water company threatened to shut off services in your home? No 11/03/2024 Social Connection and Isolat ion Panel [NHANES] Answer Date Recorded In a typical week, how many times do you talk on the phone with family, friends, or neighbors? More than three times a week 11/03/2024 How often do you get togethe r with friends or relatives? More than three times a week 11/03/2024 How often do you attend chur ch or yazidism services? More than 4 times per year 11/03/2024 Do you belong to any clubs o r organizations such as latter-day groups, unions, fraternal or athletic groups, or school groups? No 11/03/2024 How often do you attend meet ings of the clubs or organizations you belong to? Never 11/03/2024 Are you , , di vorced, , never , or living with a partner? Never 11/03/2024 AUDIT-C Answer Date Recorded Q1: How often do you have a drink containing alcohol? Never 03/03/2024 Q2: How many drinks containi ng alcohol do you have on a typical day when you are drinking? Patient does not drink Q3: How often do you have si x or more drinks on one occasion? Never 03/03/2024 Overall Financial Resource Strain (CARDIA) Answe r Date Recorded How hard is it for you to pa y for the very basics like food, housing, medical care, and heating? Not very hard 11/03/2024 PHQ-2 Answer Date Recorded PHQ-2 Total Score (If total score is 3 or more points, staff should administer the PHQ-9) 0 06/02/2024 Hunger Vital Sign Answer Date Recorded Within the past 12 months, y ou worried that your food would run out before you got the money to buy more. Never true 11/03/20 24 Within the past 12 months, t he food you bought just didn't last and you didn't have money to get more. Never true 11/03/2024 PRAPARE - Transportation Answer Date Re corded In the past 12 months, has l ack of transportation kept you from medical appointments or from getting medications? No 10/07 In the past 12 months, has l ack of transportation kept you from meetings, work, or from getting things needed for daily living? No 11/03/2024 Housing Stability Vital Sign Answer Bird e Recorded In the last 12 months, was t here a time when you were not able to pay the mortgage or rent on time? No 11/03/2024 In the past 12 months, how m any times have you moved where you were living? 0 11/03/2024 At any time in the past 12 m [facility], were you homeless or living in a skilled nursing (including now)? No 11/03/2024 Personal Safety Answer Date Recorded Have you ever been in or are you currently in a harmful physical or emotional relationship or is someone making you feel afraid or unsafe? Denies 10/31/2024 Education Answer Date Recorded What is the highest level of school you have completed or the highest degree you have received? Some college, no degree 11/03/2024 Comments No Sex and Gender Information Value Date Recorded Sex Assigned at Not on file Legal Sex Female 1:07 PM CDT Gender Identity Not on file Sexual Orientation Not on file Obstetrics History Para Term AB IAB SAB Ectopic Multiple Livin g Live Births 5 3 3 Date Outcome GA Total Labor Labor/2nd/3rd Weight Sex Type Anes PTL Khadijah A1 A5 Name Clin Term Term Term Last Filed Vital Signs Vital Sign Reading Time Taken Comments Blood Pressure 119/61 11/03/2024 11:26 AM ELECTRICAL SUPERINTENDENT Pulse 68 11/03/2024 11:26 AM ELECTRICAL SUPERINTENDENT Temperature 36.5 C (97.7 F) 11/03/2024 11:26 AM ELECTRICAL SUPERINTENDENT Respiratory Rate 18 11/03/2024 11:26 AM ELECTRICAL SUPERINTENDENT Oxygen Saturation 95% 11/03/2024 11:26 AM ELECTRICAL SUPERINTENDENT Inhaled Oxygen Concentration - - Weight 89.9 kg (198 lb 3.1 oz) 10/31/2024 10:55 PM ELECTRICAL SUPERINTENDENT Height 171.5 cm (5' 7.5 ) 10/31/2024 10:55 PM CS T Body Mass Index 30.58 10/31/2024 10:55 PM ELECTRICAL SUPERINTENDENT Plan of Treatment Health Maintenance Due Date Last Done Comments Zoster Vaccine (1 of 2) 2008 05/06/2019, 12/06 Pneumococcal vaccine 65+ (1 of 1 - PCV) 2023 Well Visit 65+ 2023 Covid-19 Vaccine (2023-2 5 season) 2024 09/15/2022, 09/15/2022, 06/09/2022, Additional history exists Depression Screening 06/02/2025 06/02/2024, 03/03/20 Breast Cancer Screening-Mammogram 07/30/2025 024, 03/19/2023 Fall Risk Assessment 11/03/2025 11/03/2024, 06/02/2024, 03/03/2024 Osteoporosis Screening-Bone Density Scan 07/30/2026 07/30/2024 DTaP/Tdap/Td Vaccine (4 - Td or Tdap) 07/02/2027 07/02/2017, 09/08/2009, 09/08/2009 Colon Cancer Screening-Sigmoidoscopy 10/11/2028 10/11/2023 Hepatitis B Screening Completed 03/03/2024 Hepatitis C Screening Completed 03/03/2024 Influenza Vaccine Completed 07/24/2024, , 06/24/2021, Additional history exists Procedures Procedure Name Priority Date/Time Associated Diagnosis Comments LEFT HEART CATHETERIZATION WITH CORONARY ANGIOGRAPHY AND WITH AND WITHOUT LEFT VENTRICULOGRAM Routine 11/03/2024 9:01 AM ELECTRICAL SUPERINTENDENT Chest pain, unspecified type EGFR Routine 11/03/2024 2:45 AM ELECTRICAL SUPERINTENDENT DIFFERENTIAL AUTO Routine 11/03/2024 2:4 5 AM ELECTRICAL SUPERINTENDENT COMPREHENSIVE METABOLIC PANEL Routine 11/03/2024 2:45 AM ELECTRICAL SUPERINTENDENT CBC WITH AUTO DIFFERENTIAL Routine 11/03/2024 2:45 AM ELECTRICAL SUPERINTENDENT EGFR Routine 11/02/2024 10:06 AM ELECTRICAL SUPERINTENDENT DIFFERENTIAL AUTO Routine 11/02/2024 10:06 AM ELECTRICAL SUPERINTENDENT COMPREHENSIVE METABOLIC PANEL Routine 11/02/2024 10:06 AM ELECTRICAL SUPERINTENDENT CBC WITH AUTO DIFFERENTIAL Routine 11/02/2024 10:06 AM ELECTRICAL SUPERINTENDENT TROPONIN T HIGH-SENSITIVITY 6-HOUR Timed 11/02/2024 12:14 AM ELECTRICAL SUPERINTENDENT TROPONIN T HIGH-SENSITIVITY 4-HR Timed 11/01/2024 9:14 PM ELECTRICAL SUPERINTENDENT TROPONIN T HIGH-SENSITIVITY 2-HOUR Timed 11/01/2024 7:12 PM ELECTRICAL SUPERINTENDENT TROPONIN T HIGH-SENSITIVITY SERIES (BASELINE, 2HR, 4HR, 6HR) Routine 11/01/2024 5:37 PM ELECTRICAL SUPERINTENDENT ECG 12-LEAD Routine 11/01/2024 3:42 PM ELECTRICAL SUPERINTENDENT TRANSTHORACIC ECHO (TTE) COMPLETE W DOPPLER/CF WO CONTRAST Routine 11/01/2024 8:57 AM ELECTRICAL SUPERINTENDENT EGFR Routine 11/01/2024 2:22 AM ELECTRICAL SUPERINTENDENT DIFFERENTIAL AUTO Routine 11/01/2024 2:2 2 AM ELECTRICAL SUPERINTENDENT CBC WITH AUTO DIFFERENTIAL Routine 11/01/2024 2:22 AM ELECTRICAL SUPERINTENDENT COMPREHENSIVE METABOLIC PANEL Routine 11/01/2024 2:22 AM ELECTRICAL SUPERINTENDENT INFLUENZA A/B, RSV, AND COVID-19 PCR Routine 10/31/2024 8:[address] CHEST PE W CONTRAST ED 6:51 PM ELECTRICAL SUPERINTENDENT TROPONIN T HIGH-SENSITIVITY 6-HOUR Timed 10/31/2024 6:33 PM ELECTRICAL SUPERINTENDENT TROPONIN T HIGH-SENSITIVITY 4-HR Timed 10/31/2024 4:22 PM ELECTRICAL SUPERINTENDENT TROPONIN T HIGH-SENSITIVITY 2-HOUR Timed 10/31/2024 2:23 PM ELECTRICAL SUPERINTENDENT XR CHEST 1 VIEW ED 10/31/2024 12:58 PM ELECTRICAL SUPERINTENDENT ECG 12-LEAD STAT 10/31/2024 12:32 PM ELECTRICAL SUPERINTENDENT D-DIMER, QUANTITATIVE Add-On 10/31/2024 12:32 PM ELECTRICAL SUPERINTENDENT EGFR STAT 10/31/2024 12:32 PM ELECTRICAL SUPERINTENDENT DIFFERENTIAL AUTO STAT 10/31/2024 12:32 PM ELECTRICAL SUPERINTENDENT TROPONIN T HIGH-SENSITIVITY SERIES (BASELINE, 2HR, 4HR, 6HR) STAT 10/31/2024 12:32 PM ELECTRICAL SUPERINTENDENT COMPREHENSIVE METABOLIC PANEL STAT 10/31/2024 12:32 PM ELECTRICAL SUPERINTENDENT CBC WITH AUTO DIFFERENTIAL STAT 10/31/2024 12:32 PM ELECTRICAL SUPERINTENDENT DEXA AXIAL SKELETON BONE DENSITY 1 OR MORE SITES Schedule Routine, Read Routine (OP Routine) 07/30/2024 10:21 AM CDT Asymptomatic menopausal state SCREENING MAMMOGRAM BILATERAL W TONIO Routine 07/30/2024 10:13 AM CDT Encounter for screening mammogram for malignant neoplasm of breast HEPATITIS C ANTIBODY Routine 03/03/2024 10:10 AM CDT Need for hepatitis C screening test from Last 3 Months or Most Recently Relevant to Health Maintenance Results * LEFT HEART CATHETERIZATION WITH CORONARY ANGIOGRAPHY AND WITH AND WITHOUT LEFT VENTRICULOGRAM (11/03/2024 9:01 AM ELECTRICAL SUPERINTENDENT) Anatomical Region Laterality Modality X-Ray Angiograph y Narrative 11/03/2024 10:42 AM ELECTRICAL SUPERINTENDENT Attending: Washington Perez MD Indication: Unstable angina Procedure(s): 1. Left heart catheterization 2. Coronary angiography Consent obtained: YES Timeout: done; correct procedure, patient and site of access. Drug allergies noted. Sedation Moderate sedation was done using versed 2 mg & fentanyl 70 mcg. Sedation start time 8:50 & sedation end time 9:01. Sedation was administered under my supervision and JOSSELYN Palm in the room with continuous monitoring of patient's vital signs, airway and hemodynamic. Sedation was tolerated very well by the patient and at the end of the procedure patient was conscious. See procedure log for further details. Access: Site: Rt radial artery Technique: Modified Sildenger technique with fluoroscopy and US guidance Sheath size: 6 F Coronary angiography: Catheters were advanced over wire under fluoroscopy for selective coronary angiography. Wire was removed and catheter was flushed with saline. Coronary angiogram was recorded in different projections. Catheters removed and sheath flushed. Following catheter used for coronary angiograms TIG Hemodynamic findings: Arterial pressure: 130/70 mmHg LVEDP: 12 mmHg No gradient across AV Angiographic findings: 1. Left main: Bifurcates into LAD and LCX. There was no angiographic significant disease 2. LAD: Normal anatomic course, gives to diagonal branches. There was no angiographic significant disease. 3. LCX: Normal anatomic course, gives to OM branches. Calcified vessel with distal segment 50% stenosis 4. RCA: Normal anatomic course, gives to PDA and PLV branches. Tortuous calcified vessel with mid segment 50% stenosis Dominance: Right Closure: artery closure with radial compression band Immediate post procedure access site: no hematoma, and distal pulse is unchanged Complications: None Estimated blood loss: minimal Specimen: none Conclusion: Coronary artery calcification with nonobstructive coronary artery disease Recommendation 1. Risk factors modification 2. Aspirin 81 mg daily Main Burkett MD CV CARDIAC CATH PROCEDURES Fi nal Result * eGFR (11/03/2024 2:45 AM ELECTRICAL SUPERINTENDENT) eGFR 82 >=60 mL/min/1. 73 m2 Comment: Interpretive Data Reference Interval Normal >/= 90 mL/min/1.73m2 Mildly decreased* 60 - 89 mL/min/1.73m2 Mildly to moderately decreased 45 - 59 mL/min/1.73m2 Moderately to severely decreased 30 - 44 mL/min/1.73m2 Severely decreased 15 - 29 mL/min/1.73m2 Kidney Failure < 15 mL/min/1.73m2 *Relative to young adult level Estimated glomerular filtration rate is determined by the 2020 CKD-EPI equation recommended by the National Kidney Foundation (A Unifying Approach to GFR Estimation: Recommendations of the NKF-ASK Task Force on Reassessing the Inclusion of Race in Diagnosing Kidney Disease, JASN 2020). The CKD-EPI equation should not be used for patients with unstable renal function and has not been validated in children and those over 70. Current interpretive data was last reviewed 2021. Blood 11/03/2024 2:45 AM ELECTRICAL SUPERINTENDENT 11/03/2024 3:15 AM ELECTRICAL SUPERINTENDENT Brandin Dela Cruz Jr., MD LAB BLOOD ORDERABLE S Final Result [facility] ([place]) 1 [facility] Department [place] [address] * Differential, auto (11/03/2024 2:45 AM ELECTRICAL SUPERINTENDENT) Neutrophil abs 4.2 1.5 - 6.5 K/cumm Imm gran abs 0.0 0.0 - 0.1 K/cumm [facility] ([place]) Lymphocyte abs 1.5 0.8 - 3.3 K/cumm [facility] ([place]) Monocyte abs 0.4 0.2 - 0.8 K/cumm [facility] ([place]) Eosinophil abs 0.3 0.0 - 0.5 K/cumm [facility] ([place]) Basophil abs 0.0 0.0 - 0.1 K/cumm [facility] ([place]) Neutrophil pct 66.5 % [facility] ([place]) Comment: Interpretive Data Percent cell count reference ranges are not reported, since discordance with absolute values may lead to misinterpretation of CBC data. Current Interpretive Data was last revised on 2018. Imm gran pct 0.2 % [facility] ([place]) Comment: Interpretive Data Percent cell count reference ranges are not reported, since discordance with absolute values may lead to misinterpretation of CBC data. Current Interpretive Data was last revised on 2018. Lymphocyte pct 23.3 % [facility] ([place]) Comment: Interpretive Data Percent cell count reference ranges are not reported, since discordance with absolute values may lead to misinterpretation of CBC data. Current Interpretive Data was last revised on 2018. Monocyte pct 5.8 % [facility] ([place]) Comment: Interpretive Data Percent cell count reference ranges are not reported, since discordance with absolute values may lead to misinterpretation of CBC data. Current Interpretive Data was last revised on 2018. Eosinophil pct 3.9 % [facility] ([place]) Comment: Interpretive Data Percent cell count reference ranges are not reported, since discordance with absolute values may lead to misinterpretation of CBC data. Current Interpretive Data was last revised on 2018. Basophil pct 0.3 % [facility] ([place]) Comment: Interpretive Data Percent cell count reference ranges are not reported, since discordance with absolute values may lead to misinterpretation of CBC data. Current Interpretive Data was last revised on 2018. Blood 11/03/2024 2:45 AM ELECTRICAL SUPERINTENDENT 11/03/2024 3:15 AM ELECTRICAL SUPERINTENDENT us Brandin Dela Cruz Jr., MD LAB BLOOD ORDERABLE S Final Result [facility] ([place]) 1 [facility] Department [place] [address] * (ABNORMAL) CBC with auto differential (11/03/2024 2:45 AM ELECTRICAL SUPERINTENDENT) WBC 6.4 3.8 - 9.9 K/cumm Hgb 11.9 11.9 - 15.5 g/dL [facility] ([place]) Hct 35.0(L) 35.6 - 45.5 % [facility] ([place]) Plt 217 150 - 400 K/cumm [facility] ([place]) MPV 10.3 9.1 - 12.3 fL [facility] ([place]) RBC 3.91 3.90 - 5.20 M/cumm [facility] ([place]) MCV 89.5 81.3 - 96.4 fL [facility] ([place]) MCH 30.4 27.1 - 33.3 pg [facility] ([place]) MCHC 34.0 32.3 - 35.7 g/dL [facility] ([place]) RDW CV 13.3 11.1 - 14.9 % [facility] ([place]) RDW SD 43.5 35.7 - 48.1 fL [facility] ([place]) NRBC abs 0.00 0.00 - 0.01 K/cumm [facility] ([facility]) Blood 11/03/2024 2:45 AM ELECTRICAL SUPERINTENDENT 11/03/2024 3:15 AM ELECTRICAL SUPERINTENDENT us Brandin Dela Cruz Jr., MD LAB BLOOD ORDERABLE S Final Result [facility] (VASHT[facility]) 1 [facility] Department [place] [address] * Comprehensive metabolic panel (11/03/2024 2:45 AM ELECTRICAL SUPERINTENDENT) Sodium 139 135 - 145 mmol/L Potassium, pl 3.7 3.3 - 4.9 mmol/L [facility] ([facility]) Chloride 102 97 - 110 mmol/L [facility] ([place]) CO2 25 22 - 32 mmol/L [facility] ([place]) Anion gap 12 2 - 15 mmol/L [facility] ([place]) BUN 16 6 - 25 mg/dL [facility] ([place]) Creatinine 0.80 0.60 - 1.10 mg/dL [facility] ([facility]) Glucose 99 70 - 199 mg/dL [facility] ([place]) Comment: Interpretive Data Fasting glucose >/= 126 mg/dl is diagnostic for diabetes. Fasting is defined as no caloric intake for at least 8 hours. Fasting glucose between 100 mg/dl to 125 mg/dl is diagnostic of prediabetes. In a patient with classic symptoms of hyperglycemia or hyperglycemic crisis, a random glucose >/= 200 mg/dl is diagnostic for diabetes. In the absence of unequivocal hyperglycemia, results should be confirmed by repeat testing. The classification and Diagnosis of Diabetes Diabetes Care 202; 46: S19-S40. Current interpretive data was last revised 2022. Calcium 9.5 8.5 - 10.3 mg/dL [facility] ([facility]) Bilirubin, total 0.3 0.1 - 1.2 mg/dL [facility] ([place]) Protein, pl 6.8 6.5 - 8.5 g/dL [facility] ([place]) Albumin 3.7 3.5 - 5.0 g/dL [facility] ([place]) Alk phos 92 40 - 130 Units/L [facility] ([place]) ALT 7 7 - 45 Units/L [facility] ([place]) AST 13 10 - 45 Units/L [facility] ([place]) Blood 11/03/2024 2:45 AM ELECTRICAL SUPERINTENDENT 11/03/2024 3:15 AM ELECTRICAL SUPERINTENDENT us Brandin Dela Cruz Jr., MD LAB BLOOD ORDERABLE S Final Result [facility] (VASHTI) 1 [facility] [place] [address] * eGFR (11/02/2024 10:06 AM ELECTRICAL SUPERINTENDENT) eGFR 88 >=60 mL/min/1. 73 m2 Comment: Interpretive Data Reference Interval Normal >/= 90 mL/min/1.73m2 Mildly decreased* 60 - 89 mL/min/1.73m2 Mildly to moderately decreased 45 - 59 mL/min/1.73m2 Moderately to severely decreased 30 - 44 mL/min/1.73m2 Severely decreased 15 - 29 mL/min/1.73m2 Kidney Failure < 15 mL/min/1.73m2 *Relative to young adult level Estimated glomerular filtration rate is determined by the 2020 CKD-EPI equation recommended by the National Kidney Foundation (A Unifying Approach to GFR Estimation: Recommendations of the NKF-ASK Task Force on Reassessing the Inclusion of Race in Diagnosing Kidney Disease, JASN 2020). The CKD-EPI equation should not be used for patients with unstable renal function and has not been validated in children and those over 70. Current interpretive data was last reviewed 2021. Blood 11/02/2024 10:0 6 AM ELECTRICAL SUPERINTENDENT 11/02/2024 10:26 AM ELECTRICAL SUPERINTENDENT us Brandin Dela Cruz Jr., MD LAB BLOOD ORDERABLE S Final Result [facility] ([place]HTI) 1 [facility] [place] [address] * Differential, auto (11/02/2024 10:06 AM ELECTRICAL SUPERINTENDENT) Neutrophil abs 5.0 1.5 - 6.5 K/cumm Imm gran abs 0.0 0.0 - 0.1 K/cumm [facility] ([place]) Lymphocyte abs 1.2 0.8 - 3.3 K/cumm [facility] ([place]) Monocyte abs 0.6 0.2 - 0.8 K/cumm [facility] ([place]) Eosinophil abs 0.2 0.0 - 0.5 K/cumm [facility] ([place]) Basophil abs 0.0 0.0 - 0.1 K/cumm [facility] ([place]) Neutrophil pct 70.9 % [facility] ([place]) Comment: Interpretive Data Percent cell count reference ranges are not reported, since discordance with absolute values may lead to misinterpretation of CBC data. Current Interpretive Data was last revised on 2018. Imm gran pct 0.1 % [facility] ([place]) Comment: Interpretive Data Percent cell count reference ranges are not reported, since discordance with absolute values may lead to misinterpretation of CBC data. Current Interpretive Data was last revised on 2018. Lymphocyte pct 17.2 % [facility] ([facility]) Comment: Interpretive Data Percent cell count reference ranges are not reported, since discordance with absolute values may lead to misinterpretation of CBC data. Current Interpretive Data was last revised on 2018. Monocyte pct 8.1 % [facility] ([place]) Comment: Interpretive Data Percent cell count reference ranges are not reported, since discordance with absolute values may lead to misinterpretation of CBC data. Current Interpretive Data was last revised on 2018. Eosinophil pct 3.3 % [facility] ([facility]) Comment: Interpretive Data Percent cell count reference ranges are not reported, since discordance with absolute values may lead to misinterpretation of CBC data. Current Interpretive Data was last revised on 2018. Basophil pct 0.4 % [facility] ([place]) Comment: Interpretive Data Percent cell count reference ranges are not reported, since discordance with absolute values may lead to misinterpretation of CBC data. Current Interpretive Data was last revised on 2018. Blood 11/02/2024 10:0 6 AM ELECTRICAL SUPERINTENDENT 11/02/2024 10:26 AM ELECTRICAL SUPERINTENDENT us Brandin Dela Cruz Jr., MD LAB BLOOD ORDERABLE S Final Result [facility] ([place]) 1 [facility] Department [place] [address] * (ABNORMAL) CBC with auto differential (11/02/2024 10:06 AM ELECTRICAL SUPERINTENDENT) WBC 7.0 3.8 - 9.9 K/cumm Hgb 11.9 11.9 - 15.5 g/dL [facility] ([place]) Hct 35.5(L) 35.6 - 45.5 % [facility] ([place]) Plt 211 150 - 400 K/cumm [facility] ([place]) MPV 10.4 9.1 - 12.3 fL [facility] ([place]) RBC 3.92 3.90 - 5.20 M/cumm [facility] ([place]) MCV 90.6 81.3 - 96.4 fL [facility] ([place]) MCH 30.4 27.1 - 33.3 pg [facility] ([place]) MCHC 33.5 32.3 - 35.7 g/dL [facility] ([place]) RDW CV 13.4 11.1 - 14.9 % [facility] ([place]) RDW SD 44.4 35.7 - 48.1 fL [facility] ([place]) NRBC abs 0.00 0.00 - 0.01 K/cumm [facility] ([facility]) Blood 11/02/2024 10:0 6 AM ELECTRICAL SUPERINTENDENT 11/02/2024 10:26 AM ELECTRICAL SUPERINTENDENT us Brandin Dela Cruz Jr., MD LAB BLOOD ORDERABLE S Final Result [facility] (VASHTI) 1 [facility] Department [place] [address] * Comprehensive metabolic panel (11/02/2024 10:06 AM ELECTRICAL SUPERINTENDENT) Sodium 138 135 - 145 mmol/L Potassium, pl 4.0 3.3 - 4.9 mmol/L [facility] ([place]) Chloride 101 97 - 110 mmol/L [facility] ([place]) CO2 26 22 - 32 mmol/L [facility] ([place]) Anion gap 11 2 - 15 mmol/L [facility] ([place]) BUN 14 6 - 25 mg/dL [facility] ([place]) Creatinine 0.75 0.60 - 1.10 mg/dL [facility] ([place]) Glucose 89 70 - 199 mg/dL [facility] ([place]) Comment: Interpretive Data Fasting glucose >/= 126 mg/dl is diagnostic for diabetes. Fasting is defined as no caloric intake for at least 8 hours. Fasting glucose between 100 mg/dl to 125 mg/dl is diagnostic of prediabetes. In a patient with classic symptoms of hyperglycemia or hyperglycemic crisis, a random glucose >/= 200 mg/dl is diagnostic for diabetes. In the absence of unequivocal hyperglycemia, results should be confirmed by repeat testing. The classification and Diagnosis of Diabetes Diabetes Care 2021; 46: S19-S40. Current interpretive data was last revised 2022. Calcium 9.4 8.5 - 10.3 mg/dL [facility] ([place]) Bilirubin, total 0.3 0.1 - 1.2 mg/dL [facility] ([place]) Protein, pl 7.1 6.5 - 8.5 g/dL [facility] ([place]) Albumin 3.6 3.5 - 5.0 g/dL [facility] ([place]) Alk phos 86 40 - 130 Units/L [facility] ([place]) ALT 10 7 - 45 Units/L [facility] ([place]) AST 14 10 - 45 Units/L [facility] ([place]) Blood 11/02/2024 10:0 6 AM ELECTRICAL SUPERINTENDENT 11/02/2024 10:26 AM ELECTRICAL SUPERINTENDENT us Brandin Dela Cruz Jr., MD LAB BLOOD ORDERABLE S Final Result [facility] ([facility]) 1 [facility] Department [place] [address] * Troponin T high-sensitivity 6-hour (11/02/2024 12:14 AM ELECTRICAL SUPERINTENDENT) Trop T hs <6 <=14 ng/L Comment: Interpretive Data For further hscTnT resources including the diagnostic algorithm and an aid in interpretation, copy and paste this link: [email or web address]/show/[email or web address] Current Interpretive Data last revised 2020. Trop T hs delta 0 ng/L [facility] ([facility]) Trop T hs interp Insignificant [facility] ([place]) Blood 11/02/2024 12:1 4 AM ELECTRICAL SUPERINTENDENT 11/02/2024 1:25 AM ELECTRICAL SUPERINTENDENT Brandin Dela Cruz Jr., MD LAB BLOOD ORDERABLE S Final Result Performing Organization Address [facility]/ZIP Co de Phone Number [facility] (VASHTI) [address] [place] [address] [place] [address] * Troponin T high-sensitivity 4-hour (11/01/2024 9:14 PM ELECTRICAL SUPERINTENDENT) Trop T hs <6 <=14 ng/L Comment: Interpretive Data For further hscTnT resources including the diagnostic algorithm and an aid in interpretation, copy and paste this link: [email or web address]/show/[email or web address] Current Interpretive Data last revised 2020. Trop T hs delta 0 ng/L [facility] ([facility]) Trop T hs interp Insignificant [facility] ([place]) Blood 11/01/2024 9:14 PM ELECTRICAL SUPERINTENDENT 11/01/2024 9:17 PM ELECTRICAL SUPERINTENDENT us Brandin Dela Cruz Jr., MD LAB BLOOD ORDERABLE S Final Result [facility] (VASHTI) [address] [place] [address] [place] [address] * Troponin T high-sensitivity 2-hour (11/01/2024 7:12 PM ELECTRICAL SUPERINTENDENT) Trop T hs <6 <=14 ng/L Comment: Interpretive Data For further hscTnT resources including the diagnostic algorithm and an aid in interpretation, copy and paste this link: [email or web address]/show/[email or web address] Current Interpretive Data last revised 2020. Trop T hs delta 0 ng/L [facility] ([facility]) Trop T hs interp Insignificant [facility] ([place]) Blood 11/01/2024 7:12 PM ELECTRICAL SUPERINTENDENT 11/01/2024 7:15 PM ELECTRICAL SUPERINTENDENT Brandin Dela Cruz Jr., MD LAB BLOOD ORDERABLE S Final Result Performing Organization Address [facility] Co de Phone Number JEMAL KEANE (GRAHAM) [address] [place] [address] [place] [address] * Troponin T high-sensitivity series (baseline, 2hr, 4hr, 6hr) (11/01/2024 5:37 PM ELECTRICAL SUPERINTENDENT) Trop T hs <6 <=14 ng/L Comment: Interpretive Data For further hscTnT resources including the diagnostic algorithm and an aid in interpretation, copy and paste this link: [email or web address]/[email or web address] Current Interpretive Data last revised 2020. Blood 11/01/2024 5:37 PM ELECTRICAL SUPERINTENDENT 11/01/2024 5:44 PM ELECTRICAL SUPERINTENDENT us Brandin Dela Cruz Jr., MD LAB BLOOD ORDERABLE S Final Result Performing Organization Address City/[facility] Co de Phone Number JEMAL KEANE (GRAHAM) 1 [facility] [place] [address] * ECG 12 lead (11/01/2024 3:42 PM ELECTRICAL SUPERINTENDENT) 11/01/2024 3:42 PM ELECTRICAL SUPERINTENDENT Narrative [facility] - 11/03/2024 10:07 AM ELECTRICAL SUPERINTENDENT Vent Rate: 69 bpm RR Interval: 858 msec MO Interval: 199 msec QRS Duration: 115 msec QT Interval: 410 msec QTC Interval: 430 msec P-R-T Dewar: 64 - -3 - 52 degrees IMPRESSION: SINUS RHYTHM LOW QRS VOLTAGE IN PRECORDIAL LEADS [QRS DEFLECTION < 1.0 mV IN CHEST LEADS] MODERATE INTRAVENTRICULAR CONDUCTION DELAY [110+ ms QRS DURATION] NONSPECIFIC ST ELEVATION [0.05+ mV ST ELEVATION] BORDERLINE ECG No change compared to prior EKG Electronically Signed By: Washington Perez MD [facility] us Brandin Dela Cruz Jr., MD ECG ORDERABLES Fin al Result [facility] [employer] [facility] * TRANSTHORACIC ECHO (TTE) COMPLETE W DOPPLER/CF WO CONTRAST (11/01/2024 8:57 AM ELECTRICAL SUPERINTENDENT) Anatomical Region Laterality Modality Ultrasound 11/01/2024 8:17 AM ELECTRICAL SUPERINTENDENT Narrative 11/01/2024 2:21 PM ELECTRICAL SUPERINTENDENT [address] [address] Echocardiogram Report Patient Name: BRIANA LEDESMA M : 1960 Study Date: 11/01/2024 8:17:11 AM Gender: F Tech: COMPUTER FORENSICS INVESTIGATOR Location: [id number] Ref Provider: MAIN BURKETT Height(Cm): 171 BSA: 2.09 Weight(Kg): 91.6 Quality: Adequate Order Provider: MAIN BURKETT PROCEDURES: Echocardiographic Report: Transthoracic echocardiogram with complete 2D, M-Mode, and color Doppler examination. INDICATIONS: Angina. MEASUREMENTS: 2D/MM Value Range Doppler Value Range EF Teich MM 57.0 % [ 54.0 - 74.0 ] LAZ Vmax 3.44 cm2 Estimated EF 60 to 65 % AV Mean PG 5 mmHg LVIDd MM 5.50 cm [ 3.80 - 5.20 ] AV Peak Richar 1.52 m/s [ 1.00 - 1.70 ] LVIDs MM 3.90 cm [ 2.20 - 3.50 ] AV VTI 32.64 cm LVPWd MM 1.20 cm [ 0.60 - 0.90 ] LVOT Diam 2.28 cm IVSd MM 1.00 cm [ 0.60 - 0.90 ] LVOT Peak Richar 1.29 m/s [ 0.70 - 1.10 ] LA Dimension MM 2.79 cm [ 2.70 - 3.80 ] LVOT VTI 31.08 cm AoR Diam MM 2.70 cm [ 2.70 - 3.70 ] MV E Peak Richar 0.80 m/s [ 0.60 - 1.30 ] ACS MM 1.62 cm MV A Peak Richar 0.93 m/s [ 1.00 - 1.20 ] MV Mean PG 3 mmHg MV PHT 40 msec [ 20 - 100 ] MVA 5.50 MV Decel Time 253 msec [ 104 - 258 ] PV Peak Richar 0.92 m/s [ 0.40 - 0.80 ] MO Peak Richar 1.30 m/s TR Peak Richar 2.50 m/s [ 1.00 - 2.80 ] TR Peak PG 25 mmHg RVSP 30.00 mmHg [ 10.00 - 36.00 ] E` 0.07 m/s E/E` 11.82 [ <= 10.00 ] PA Pressure 30.00 mmHg [ 10.00 - 36.00 ] 2D/MM Value Range Doppler Value Range - FINDINGS: Atrial Septum: Normal atrial septum. Left Ventricle: Normal global left ventricular systolic function. Diastolic dysfunction is present. Ejection Fraction is estimated to be 60 to 65 %. Left Atrium: The left atrium is normal in size. Right Ventricle: Normal right ventricular size. Normal right ventricular systolic function. Right Atrium: The right atrium is normal in size. Aortic Valve: Normal structure of the aortic valve. Mitral Valve: Normal structure of the mitral valve. Mild to moderate mitral valve regurgitation. Pulmonic Valve: Pulmonic valve not well visualized. Trivial regurgitation in the pulmonic valve. Tricuspid Valve: Normal structure of the tricuspid valve. Mild tricuspid regurgitation. Pericardium: Normal pericardium with no significant pericardial effusion. Aorta: Normal aortic root. IVC: Normal size and normal respiratory collapse consistent with normal right atrial pressure (<5 mmHg). CONCLUSIONS: Normal global left ventricular systolic function. Diastolic dysfunction is present. Ejection Fraction is estimated to be 60 to 65 %. Normal structure of the mitral valve. Mild to moderate mitral valve regurgitation. Normal structure of the aortic valve. Normal structure of the tricuspid valve. Mild tricuspid regurgitation. Electronically Signed By: Dr Main Burkett 11/01/2024 2:21:19 PM ELECTRICAL SUPERINTENDENT 60 Procedure Note Main Burkett MD - 11/01/[address] [place] [address] Echocardiogram Report Patient Name: BRIANA LEDESMA M : 1960 Study Date: 11/01/2024 8:17:11 AM Gender: F Tech: COMPUTER FORENSICS INVESTIGATOR Location: [address] Provider: MAIN BURKETT Height(Cm): 171 BSA: 2.09 Weight(Kg): 91.6 Quality: Adequate Order Provider: MAIN BURKETT PROCEDURES: Echocardiographic Report: Transthoracic echocardiogram with complete 2D, M-Mode, and color Dopplerexamination. INDICATIONS: Angina. MEASUREMENTS: 2D/MM Value Range Doppler ValueRange EF Teich MM 57.0 % [ 54.0 - 74.0 ] LAZ Vmax 3.44cm2 Estimated EF 60 to 65 % AV Mean PG 5mmHg LVIDd MM 5.50 cm [ 3.80 - 5.20 ] AV Peak Richar 1.52m/s [ 1.00 - 1.70 ] LVIDs MM 3.90 cm [ 2.20 - 3.50 ] AV VTI 32.64cm LVPWd MM 1.20 cm [ 0.60 - 0.90 ] LVOT Diam 2.28cm IVSd MM 1.00 cm [ 0.60 - 0.90 ] LVOT Peak Richar 1.29m/s [ 0.70 - 1.10 ] LA Dimension MM 2.79 cm [ 2.70 - 3.80 ] LVOT VTI 31.08cm AoR Diam MM 2.70 cm [ 2.70 - 3.70 ] MV E Peak Richar 0.80m/s [ 0.60 - 1.30 ] ACS MM 1.62 cm MV A Peak Richar 0.93m/s [ 1.00 - 1.20 ] MV Mean PG 3 mmHg MV PHT 40 msec [ 20 - 100 ] MVA 5.50 MV Decel Time 253 msec [ 104 - 258 ] PV Peak Rcihar 0.92 m/s [ 0.40 - 0.80 ] MO Peak Richar 1.30 m/s TR Peak Richar 2.50 m/s [ 1.00 - 2.80 ] TR Peak PG 25 mmHg RVSP 30.00 mmHg [ 10.00 - 36.00 ] E` 0.07 m/s E/E` 11.82 [ <= 10.00 ] PA Pressure 30.00 mmHg [ 10.00 - 36.00 ] 2D/MM Value Range Doppler ValueRange - FINDINGS: Atrial Septum: Normal atrial septum. Left Ventricle: Normal global left ventricular systolic function. Diastolic dysfunction ispresent. Ejection Fraction is estimated to be 60 to 65 %. Left Atrium: The left atrium is normal in size. Right Ventricle: Normal right ventricular size. Normal right ventricular systolicfunction. Right Atrium: The right atrium is normal in size. Aortic Valve: Normal structure of the aortic valve. Mitral Valve: Normal structure of the mitral valve. Mild to moderate mitral valveregurgitation. Pulmonic Valve: Pulmonic valve not well visualized. Trivial regurgitation in the pulmonicvalve. Tricuspid Valve: Normal structure of the tricuspid valve. Mild tricuspid regurgitation. Pericardium: Normal pericardium with no significant pericardial effusion. Aorta: Normal aortic root. IVC: Normal size and normal respiratory collapse consistent with normal rightatrial pressure (<5 mmHg). CONCLUSIONS: Normal global left ventricular systolic function. Diastolic dysfunction ispresent. Ejection Fraction is estimated to be 60 to 65 %. Normal structure of the mitral valve. Mild to moderate mitral valveregurgitation. Normal structure of the aortic valve. Normal structure of the tricuspid valve. Mild tricuspid regurgitation. Electronically Signed By: Dr Main Burkett 11/01/2024 2:21:19 PM ELECTRICAL SUPERINTENDENT 60 us Main Burkett MD CV ECHO PROCEDURES Final Resu lt * eGFR (11/01/2024 2:22 AM ELECTRICAL SUPERINTENDENT) eGFR 78 >=60 mL/min/1. 71 m2 Comment: Interpretive Data Reference Interval Normal >/= 90 mL/min/1.73m2 Mildly decreased* 60 - 89 mL/min/1.73m2 Mildly to moderately decreased 45 - 59 mL/min/1.73m2 Moderately to severely decreased 30 - 44 mL/min/1.73m2 Severely decreased 15 - 29 mL/min/1.73m2 Kidney Failure < 15 mL/min/1.73m2 *Relative to young adult level Estimated glomerular filtration rate is determined by the 2020 CKD-EPI equation recommended by the National Kidney Foundation (A Unifying Approach to GFR Estimation: Recommendations of the NKF-ASK Task Force on Reassessing the Inclusion of Race in Diagnosing Kidney Disease, JASN 2020). The CKD-EPI equation should not be used for patients with unstable renal function and has not been validated in children and those over 70. Current interpretive data was last reviewed 2021. Blood 11/01/2024 2:22 AM ELECTRICAL SUPERINTENDENT 11/01/2024 3:44 AM ELECTRICAL SUPERINTENDENT Tracy Mohamud MD LAB BLOOD ORDERABLES Rayna l Result [facility] ([place]) 1 [facility] Department of Laboratories [place], [place] [id number] * Differential, auto (11/01/2024 2:22 AM ELECTRICAL SUPERINTENDENT) Neutrophil abs 5.5 1.5 - 6.5 K/cumm Imm gran abs 0.0 0.0 - 0.1 K/cumm [facility] ([place]) Lymphocyte abs 1.6 0.8 - 3.3 K/cumm [facility] ([place]) Monocyte abs 0.5 0.2 - 0.8 K/cumm [facility] ([place]) Eosinophil abs 0.2 0.0 - 0.5 K/cumm [facility] ([place]) Basophil abs 0.0 0.0 - 0.1 K/cumm [facility] ([place]) Neutrophil pct 69.8 % [facility] ([place]) Comment: Interpretive Data Percent cell count reference ranges are not reported, since discordance with absolute values may lead to misinterpretation of CBC data. Current Interpretive Data was last revised on 2018. Imm gran pct 0.3 % [facility] ([place]) Comment: Interpretive Data Percent cell count reference ranges are not reported, since discordance with absolute values may lead to misinterpretation of CBC data. Current Interpretive Data was last revised on 2018. Lymphocyte pct 19.9 % [facility] ([place]) Comment: Interpretive Data Percent cell count reference ranges are not reported, since discordance with absolute values may lead to misinterpretation of CBC data. Current Interpretive Data was last revised on 2018. Monocyte pct 6.8 % [facility] ([place]) Comment: Interpretive Data Percent cell count reference ranges are not reported, since discordance with absolute values may lead to misinterpretation of CBC data. Current Interpretive Data was last revised on 2018. Eosinophil pct 2.9 % [facility] ([place]) Comment: Interpretive Data Percent cell count reference ranges are not reported, since discordance with absolute values may lead to misinterpretation of CBC data. Current Interpretive Data was last revised on 2018. Basophil pct 0.3 % [facility] ([place]) Comment: Interpretive Data Percent cell count reference ranges are not reported, since discordance with absolute values may lead to misinterpretation of CBC data. Current Interpretive Data was last revised on 2018. Blood 11/01/2024 2:22 AM ELECTRICAL SUPERINTENDENT 11/01/2024 3:44 AM ELECTRICAL SUPERINTENDENT us Tracy Mohamud MD LAB BLOOD ORDERABLES Rayna l Result [facility] ([place]) 1 [facility] Department [place] [address] * (ABNORMAL) CBC with auto differential (11/01/2024 2:22 AM ELECTRICAL SUPERINTENDENT) Pathologist [facility] WBC 7.8 3.8 - 9.9 K/cumm Hgb 11.3(L) 11.9 - 15.5 g/dL [facility] Hct 34.3(L) 35.6 - 45.5 % [facility] ([place]) Plt 213 150 - 400 K/cumm [facility] ([place]) MPV 11.0 9.1 - 12.3 fL [facility] ([place]) RBC 3.75(L) 3.90 - 5.20 M/cumm [facility] ([place]) MCV 91.5 81.3 - 96.4 fL [facility] ([place]) MCH 30.1 27.1 - 33.3 pg [facility] ([place]) MCHC 32.9 32.3 - 35.7 g/dL [facility] ([place]) RDW CV 13.5 11.1 - 14.9 % [facility] ([place]) RDW SD 45.3 35.7 - 48.1 fL [facility] NRBC abs 0.00 0.00 - 0.01 K/cumm [facility] Blood 11/01/2024 2:22 AM ELECTRICAL SUPERINTENDENT 11/01/2024 3:44 AM ELECTRICAL SUPERINTENDENT Tracy Mohamud MD LAB BLOOD ORDERABLES Rayna l Result [facility] 1 [facility] Department [place] [address] * Comprehensive metabolic panel (11/01/2024 2:22 AM ELECTRICAL SUPERINTENDENT) Pathologist [facility] Sodium 138 135 - 145 mmol/L Potassium, pl 3.6 3.3 - 4.9 mmol/L [facility] ([place]) Chloride 102 97 - 110 mmol/L [facility] ([place]) CO2 25 22 - 32 mmol/L [facility] ([place]) Anion gap 11 2 - 15 mmol/L [facility] ([place]) BUN 13 6 - 25 mg/dL [facility] ([place]) Creatinine 0.83 0.60 - 1.10 mg/dL [facility] ([place]) Glucose 114 70 - 199 mg/dL [facility] ([place]) Comment: Interpretive Data Fasting glucose >/= 126 mg/dl is diagnostic for diabetes. Fasting is defined as no caloric intake for at least 8 hours. Fasting glucose between 100 mg/dl to 125 mg/dl is diagnostic of prediabetes. In a patient with classic symptoms of hyperglycemia or hyperglycemic crisis, a random glucose >/= 200 mg/dl is diagnostic for diabetes. In the absence of unequivocal hyperglycemia, results should be confirmed by repeat testing. The classification and Diagnosis of Diabetes Diabetes Care 202; 46: S19-S40. Current interpretive data was last revised 2022. Calcium 9.2 8.5 - 10.3 mg/dL [facility] ([place]) Bilirubin, total <0.2 0.1 - 1.2 mg/dL [facility] ([place]) Protein, pl 6.9 6.5 - 8.5 g/dL [facility] ([place]) Albumin 3.7 3.5 - 5.0 g/dL [facility] ([place]) Alk phos 94 40 - 130 Units/L [facility] ([place]) ALT 10 7 - 45 Units/L [facility] ([place]) AST 16 10 - 45 Units/L [facility] ([place]) Blood 11/01/2024 2:22 AM ELECTRICAL SUPERINTENDENT 11/01/2024 3:44 AM ELECTRICAL SUPERINTENDENT Tracy Mohamud MD LAB BLOOD ORDERABLES Rayna l Result [facility] ([place]) 1 [facility] Department [place] [address] * Influenza A/B, RSV, and COVID-19 PCR Nasopharyngeal (10/31/2024 8:48 PM ELECTRICAL SUPERINTENDENT) COVID-19 RNA Negative Negative Influenza A RNA Negative Negative [facility] ([place]) Influenza B RNA Negative Negative [facility] ([place]) RSV RNA Negative Negative [facility] ([place]) Comment: Interpretive data: Testing performed by [facility]. This test is performed using the Ecast Xpert Xpress CoV-2/Flu/RSV plus assay. This is a multiplex, real- time reverse transcriptase PCR assay intended for the qualitative detection of nucleic acid from SARS-CoV-2, influenza A, influenza B, and respiratory syncytial virus. This assay has been cleared by the [place] Food and Drug administration. The performance characteristics have been verified by the [facility]. Results must be considered in the clinical context, and a negative result does not rule out infection. Interpretive Data last revised 2023 Nasopharyngeal 10/31/2024 8: 48 PM ELECTRICAL SUPERINTENDENT 10/31/2024 8:50 PM ELECTRICAL SUPERINTENDENT Narrative [facility] ([place]) - 10/31/2024 9:34 PM ELECTRICAL SUPERINTENDENT Is the Patient experiencing symptoms consistent with COVID?->No Kingsley Mays MD LAB MICROBIOLOGY - GENERAL OLIMPIA ALAS Final Result [facility] ([place]) 1 [facility] Department [place] [address] * CT Chest PE (CTA) W Contrast (10/31/2024 6:51 PM ELECTRICAL SUPERINTENDENT) Anatomical Region Laterality Modality Body N/A Computed Tomogra phy 10/31/2024 7:23 PM ELECTRICAL SUPERINTENDENT Narrative 10/31/2024 7:36 PM ELECTRICAL SUPERINTENDENT EXAM DESCRIPTION: CT CHEST PE (CTA) W CONTRAST REASON FOR STUDY: Chest pain, PE suspected, high prob Patient presents to ED for chest pain after heavy lifting this morning. Pain subsided after nitro was given. Patient denies cancer or surgeries to chest. TECHNIQUE: CT angiogram of the chest performed with intravenous contrast using helical scanning technique with dynamic intravenous contrast injection. Reconstructed coronal and sagittal MPR images reviewed. All images stored on PACS. 3D MIP images rendered on scanning unit and reviewed at time of interpretation. Automated exposure control was used as a dose optimization technique for this examination. CONTRAST TYPE/DOSE: 75mL of IOVERSOL 350 MG IODINE/ML INTRAVENOUS SYRINGE injected via intravenous COMPARISON: CT chest abdomen pelvis 03/26/2024 FINDINGS: VASCULATURE: No identified pulmonary emboli. LUNGS: Small bibasilar atelectasis. No nodules or masses. No pneumonia. PLEURA: No effusion. No pneumothorax. MEDIASTINUM/ASHLIE: No identified masses or abnormal nodes. HEART: Heart size is normal with no pericardial effusion. AXILLA: No adenopathy. CHEST WALL: No masses. No subcutaneous air. HARDWARE/LINES/TUBES: None. UPPER ABDOMEN: No significant abnormality. MUSCULOSKELETAL: No significant abnormality. OTHER: No significant abnormality. IMPRESSION: No evidence of pulmonary embolism. No acute cardiopulmonary findings THIS IS AN ELECTRONICALLY VERIFIED FINAL REPORT 10/31/2024 7:36 PM - Electronically signed by Bethany Marsh M.D. FT: FT Report ID: [id number] Reading Location: [place] [address] Procedure Note Bethany Melgar MD - 10/31/2024 EXAM DESCRIPTION: CT CHEST PE (CTA) W CONTRAST REASON FOR STUDY: Chest pain, PE suspected, high prob Patient presents to ED for chest pain after heavy lifting this morning.Pain subsided after nitro was given. Patient denies cancer or surgeries tochest. TECHNIQUE: CT angiogram of the chest performed with intravenous contrastusing helical scanning technique with dynamic intravenous contrast injection. Reconstructed coronal and sagittal MPR images reviewed. All images storedon PACS. 3D MIP images rendered on scanning unit and reviewed at time of interpretation. Automated exposure control was used as a doseoptimization technique for this examination. CONTRAST TYPE/DOSE: 75mL of IOVERSOL 350 MG IODINE/ML INTRAVENOUSSYRINGE injected via intravenous COMPARISON: CT chest abdomen pelvis 03/26/2024 FINDINGS: VASCULATURE: No identified pulmonary emboli. LUNGS: Small bibasilar atelectasis. No nodules or masses. No pneumonia. PLEURA: No effusion. No pneumothorax. MEDIASTINUM/ASHLIE: No identified masses or abnormal nodes. HEART: Heart size is normal with no pericardial effusion. AXILLA: No adenopathy. CHEST WALL: No masses. No subcutaneous air. HARDWARE/LINES/TUBES: None. UPPER ABDOMEN: No significant abnormality. MUSCULOSKELETAL: No significant abnormality. OTHER: No significant abnormality. IMPRESSION: No evidence of pulmonary embolism. No acute cardiopulmonary findings THIS IS AN ELECTRONICALLY VERIFIED FINAL REPORT 10/31/2024 7:36 PM - Electronically signed by Bethany Marsh M.D. FT: FT Report ID: [id number] Reading Location: [place] [address] us Tracy Mohamud MD IMG CT PROCEDURES Final R esult * Troponin T high-sensitivity 6-hour (10/31/2024 6:33 PM ELECTRICAL SUPERINTENDENT) Trop T hs <6 <=14 ng/L Comment: Interpretive Data For further hscTnT resources including the diagnostic algorithm and an aid in interpretation, copy and paste this link: [email or web address]/[email or web address] Current Interpretive Data last revised 2020. Trop T hs delta 0 ng/L [facility] ([place]) Trop T hs interp Insignificant [facility] ([place]) Blood 10/31/2024 6:33 PM ELECTRICAL SUPERINTENDENT 10/31/2024 6:36 PM ELECTRICAL SUPERINTENDENT us Hilario Liu MD LAB BLOOD ORDERABLE S Final Result [facility] ([place]) 1 [facility] Department [place] [address] * Troponin T high-sensitivity 4-hour (10/31/2024 4:22 PM ELECTRICAL SUPERINTENDENT) Trop T hs <6 <=14 ng/L Comment: Interpretive Data For further hscTnT resources including the diagnostic algorithm and an aid in interpretation, copy and paste this link: [email or web address] Current Interpretive Data last revised 2020. Trop T hs delta 0 ng/L [facility] ([place]) Trop T hs interp Insignificant [facility] ([place]) Blood 10/31/2024 4:22 PM ELECTRICAL SUPERINTENDENT 10/31/2024 4:26 PM ELECTRICAL SUPERINTENDENT Hilario Liu MD LAB BLOOD ORDERABLE S Final Result Performing Organization Address [facility] Co de Phone Number [facility] ([place]) 1 [facility] [place] [address] * Troponin T high-sensitivity 2-hour (10/31/2024 2:23 PM ELECTRICAL SUPERINTENDENT) Trop T hs <6 <=14 ng/L Comment: Interpretive Data For further hscTnT resources including the diagnostic algorithm and an aid in interpretation, copy and paste this link: [email or web address].[email or web address]/show/[email or web address] Current Interpretive Data last revised 2020. Trop T hs delta 0 ng/L [facility] ([place]) Trop T hs interp Insignificant [facility] ([place]) Blood 10/31/2024 2:23 PM ELECTRICAL SUPERINTENDENT 10/31/2024 2:25 PM ELECTRICAL SUPERINTENDENT Hilario Liu MD LAB BLOOD ORDERABLE S Final Result Performing Organization Address City/[facility]/ZIP Co de Phone Number [facility] ([place]) 1 [facility] of [employer] [place] [address] * XR Chest 1 View (10/31/2024 12:58 PM ELECTRICAL SUPERINTENDENT) Anatomical Region Laterality Modality Body, Chest N/A Computed Radiogr aphy 10/31/2024 1:18 PM ELECTRICAL SUPERINTENDENT Narrative 10/31/2024 1:19 PM ELECTRICAL SUPERINTENDENT EXAM DESCRIPTION: XR CHEST 1 VIEW REASON FOR STUDY: chest pain, c/f pna Pt arrives ambulatory from ems stretcher to ed stretcher from home. Pt states was exerting self helping care for another at home and began having chest pain. 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 Ems gave 324 asa. Vss. TECHNIQUE: 1 radiographic view(s) of the chest. COMPARISON: 09/09/2024. FINDINGS: LUNGS: No pneumonic consolidation or pulmonary edema. No pleural effusion or pneumothorax is seen. HEART/MEDIASTINUM: Heart size and cardiomediastinal contours are normal. There is thoracic aortic arch athero sclerotic calcification. LINES/TUBES: None. BONES: No acute displaced fracture or aggressive bone lesion is seen. IMPRESSION: No acute cardiopulmonary findings. THIS IS AN ELECTRONICALLY VERIFIED FINAL REPORT 10/31/2024 1:19 PM - Electronically signed by Elfego Odell M.D. MZ: MZ Report ID: [id number] Reading Location: [id number] Procedure Note Elfego Odell MD - 10/31/2024 EXAM DESCRIPTION: XR CHEST 1 VIEW REASON FOR STUDY: chest pain, c/f pna Pt arrives ambulatory from ems stretcher to ed stretcher from home. Ptstates was exerting self helping care for another at home and began having chest pain. 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 Ems gave 324 asa. Vss. TECHNIQUE: 1 radiographic view(s) of the chest. COMPARISON: 09/09/2024. FINDINGS: LUNGS: No pneumonic consolidation or pulmonary edema. No pleuraleffusion or pneumothorax is seen. HEART/MEDIASTINUM: Heart size and cardiomediastinal contours are normal. There is thoracic aortic arch athero sclerotic calcification. LINES/TUBES: None. BONES: No acute displaced fracture or aggressive bone lesion is seen. IMPRESSION: No acute cardiopulmonary findings. THIS IS AN ELECTRONICALLY VERIFIED FINAL REPORT 10/31/2024 1:19 PM - Electronically signed by Elfego Odell M.D. MZ: MZ Report ID: [id number] Reading Location: [id number] us Hilario Liu MD IMG XR PROCEDURES F inal Result * ECG 12 lead (10/31/2024 12:32 PM ELECTRICAL SUPERINTENDENT) 10/31/2024 12:3 2 PM ELECTRICAL SUPERINTENDENT Narrative [facility] - 11/01/2024 5:36 AM ELECTRICAL SUPERINTENDENT Vent Rate: 68 bpm RR Interval: 879 msec MO Interval: 186 msec QRS Duration: 95 msec QT Interval: 410 msec QTC Interval: 427 msec P-R-T Dewar: 56 - -23 - 37 degrees IMPRESSION: SINUS RHYTHM BORDERLINE LEFT AXIS DEVIATION [QRS AXIS < -20] BORDERLINE ECG NO CHANGE FROM PREVIOUS TRACING NOTED Electronically Signed By: Etienne Mason MD Hilario Liu MD ECG ORDERABLES Fin al Result Performing Organization Address City/[facility] Co de Phone Number [facility] * Troponin T high-sensitivity series (baseline, 2hr, 4hr, 6hr) (10/31/2024 12:32 PM ELECTRICAL SUPERINTENDENT) Trop T hs <6 <=14 ng/L Comment: Interpretive Data For further hscTnT resources including the diagnostic algorithm and an aid in interpretation, copy and paste this link: https://nrl.testcatalog.org/show/[email or web address] Current Interpretive Data last revised 2020. Blood 10/31/2024 12:3 2 PM ELECTRICAL SUPERINTENDENT 10/31/2024 12:34 PM ELECTRICAL SUPERINTENDENT us Hilario Liu MD LAB BLOOD ORDERABLE S Final Result Performing Organization Address City/[facility] Co de Phone Number [facility] ([place]) 1 [facility] Department [place] [address] * eGFR (10/31/2024 12:32 PM ELECTRICAL SUPERINTENDENT) eGFR 77 >=60 mL/min/1. 73 m2 Comment: Interpretive Data Reference Interval Normal >/= 90 mL/min/1.73m2 Mildly decreased* 60 - 89 mL/min/1.73m2 Mildly to moderately decreased 45 - 59 mL/min/1.73m2 Moderately to severely decreased 30 - 44 mL/min/1.73m2 Severely decreased 15 - 29 mL/min/1.73m2 Kidney Failure < 15 mL/min/1.73m2 *Relative to young adult level Estimated glomerular filtration rate is determined by the 2020 CKD-EPI equation recommended by the National Kidney Foundation (A Unifying Approach to GFR Estimation: Recommendations of the NKF-ASK Task Force on Reassessing the Inclusion of Race in Diagnosing Kidney Disease, JASN 2020). The CKD-EPI equation should not be used for patients with unstable renal function and has not been validated in children and those over 70. Current interpretive data was last reviewed 2021. Blood 10/31/2024 12:3 2 PM ELECTRICAL SUPERINTENDENT 10/31/2024 12:34 PM ELECTRICAL SUPERINTENDENT us Hilario Liu MD LAB BLOOD ORDERABLE S Final Result [facility] ([place]) 1 [facility] Department [place] [address] * Differential, auto (10/31/2024 12:32 PM ELECTRICAL SUPERINTENDENT) Neutrophil abs 4.6 1.5 - 6.5 K/cumm Imm gran abs 0.0 0.0 - 0.1 K/cumm [facility] ([place]) Lymphocyte abs 1.1 0.8 - 3.3 K/cumm [facility] ([place]) Monocyte abs 0.4 0.2 - 0.8 K/cumm [facility] ([place]) Eosinophil abs 0.2 0.0 - 0.5 K/cumm [facility] ([place]) Basophil abs 0.0 0.0 - 0.1 K/cumm [facility] ([place]) Neutrophil pct 73.1 % [facility] ([place]) Comment: Interpretive Data Percent cell count reference ranges are not reported, since discordance with absolute values may lead to misinterpretation of CBC data. Current Interpretive Data was last revised on 2018. Imm gran pct 0.3 % [facility] ([place]) Comment: Interpretive Data Percent cell count reference ranges are not reported, since discordance with absolute values may lead to misinterpretation of CBC data. Current Interpretive Data was last revised on 2018. Lymphocyte pct 17.1 % [facility] ([place]) Comment: Interpretive Data Percent cell count reference ranges are not reported, since discordance with absolute values may lead to misinterpretation of CBC data. Current Interpretive Data was last revised on 2018. Monocyte pct 6.2 % [facility] ([place]) Comment: Interpretive Data Percent cell count reference ranges are not reported, since discordance with absolute values may lead to misinterpretation of CBC data. Current Interpretive Data was last revised on 2018. Eosinophil pct 3.0 % [facility] ([place]) Comment: Interpretive Data Percent cell count reference ranges are not reported, since discordance with absolute values may lead to misinterpretation of CBC data. Current Interpretive Data was last revised on 2018. Basophil pct 0.3 % [facility] ([place]) Comment: Interpretive Data Percent cell count reference ranges are not reported, since discordance with absolute values may lead to misinterpretation of CBC data. Current Interpretive Data was last revised on 2018. Blood 10/31/2024 12:3 2 PM ELECTRICAL SUPERINTENDENT 10/31/2024 12:34 PM ELECTRICAL SUPERINTENDENT us Hilario Liu MD LAB BLOOD ORDERABLE S Final Result [facility] ([place]) 1 [facility] Department [place] [address] * CBC with auto differential (10/31/2024 12:32 PM ELECTRICAL SUPERINTENDENT) WBC 6.3 3.8 - 9.9 K/cumm Hgb 12.3 11.9 - 15.5 g/dL [facility] ([place]) Hct 36.1 35.6 - 45.5 % [facility] ([place]) Plt 227 150 - 400 K/cumm [facility] ([place]) MPV 10.1 9.1 - 12.3 fL [facility] ([place]) RBC 4.01 3.90 - 5.20 M/cumm [facility] ([place]) MCV 90.0 81.3 - 96.4 fL [facility] ([place]) MCH 30.7 27.1 - 33.3 pg [facility] ([place]) MCHC 34.1 32.3 - 35.7 g/dL [facility] ([place]) RDW CV 13.4 11.1 - 14.9 % [facility] ([place]) RDW SD 44.2 35.7 - 48.1 fL [facility] ([place]) NRBC abs 0.00 0.00 - 0.01 K/cumm [facility] ([place]) Blood 10/31/2024 12:3 2 PM ELECTRICAL SUPERINTENDENT 10/31/2024 12:34 PM ELECTRICAL SUPERINTENDENT us Hilario Liu MD LAB BLOOD ORDERABLE S Final Result Performing Organization Address City/[facility]/ZIP Co de Phone Number [facility] ([place]) 1 [facility] [place] [address] * (ABNORMAL) D-dimer, quantitative (10/31/2024 12:32 PM ELECTRICAL SUPERINTENDENT) D-Dimer 2,083(H) <=499 ng/mL FEU [facility] ([place]) Comment: Interpretive data FDA approved the D-dimer, in conjunction with a low or moderate pretest probability score, to exclude venous thromboembolic events (VTE) (PE and DVT) in outpatients when the D-dimer result is < 500 ng/ml FEU. Evidence supports using an age-adjusted D-dimer cut-off for outpatients older than 50 (age x 10) to improve specificity without sacrificing sensitivity. Example: age 68, VTE cut-off 680 ng/ml FEU. References; Sergio HT et al. Brit Med J. 2013;346:f2492. Deniz et al. Annals Int Med. 2015;163:701-11. Current interpretive data was last revised on 2019. Blood 10/31/2024 12:3 2 PM ELECTRICAL SUPERINTENDENT 10/31/2024 4:31 PM ELECTRICAL SUPERINTENDENT us Tracy Mohamud MD LAB BLOOD ORDERABLES Rayna l Result [facility] ([place]) 1 [facility] [place] [address] * Comprehensive metabolic panel (10/31/2024 12:32 PM ELECTRICAL SUPERINTENDENT) Sodium 139 135 - 145 mmol/L Potassium, pl 3.4 3.3 - 4.9 mmol/L [facility] ([place]) Chloride 103 97 - 110 mmol/L [facility] ([place]) CO2 24 22 - 32 mmol/L [facility] ([place]) Anion gap 12 2 - 15 mmol/L [facility] ([place]) BUN 12 6 - 25 mg/dL [facility] ([place]) Creatinine 0.84 0.60 - 1.10 mg/dL [facility] ([place]) Glucose 102 70 - 199 mg/dL [facility] ([place]) Comment: Interpretive Data Fasting glucose >/= 126 mg/dl is diagnostic for diabetes. Fasting is defined as no caloric intake for at least 8 hours. Fasting glucose between 100 mg/dl to 125 mg/dl is diagnostic of prediabetes. In a patient with classic symptoms of hyperglycemia or hyperglycemic crisis, a random glucose >/= 200 mg/dl is diagnostic for diabetes. In the absence of unequivocal hyperglycemia, results should be confirmed by repeat testing. The classification and Diagnosis of Diabetes Diabetes Care 2021; 46: S19-S40. Current interpretive data was last revised 2022. Calcium 9.7 8.5 - 10.3 mg/dL [facility] ([place]) Bilirubin, total 0.4 0.1 - 1.2 mg/dL [facility] ([place]) Protein, pl 7.9 6.5 - 8.5 g/dL [facility] ([place]) Albumin 4.3 3.5 - 5.0 g/dL [facility] ([place]) Alk phos 100 40 - 130 Units/L [facility] ([place]) ALT 11 7 - 45 Units/L [facility] ([place]) AST 25 10 - 45 Units/L [facility] ([place]) Blood 10/31/2024 12:3 2 PM ELECTRICAL SUPERINTENDENT 10/31/2024 12:34 PM ELECTRICAL SUPERINTENDENT us Hilario Lui MD LAB BLOOD ORDERABLE S Final Result [facility] 1 [facility] Department [place] [address] * Dexa Axial Skeleton Bone Density 1 or 2 Site (07/30/2024 10:21 AM CDT) Anatomical Region Laterality Modality Body N/A Other 07/30/2024 6:14 PM CDT Narrative 07/30/2024 6:17 PM CDT EXAM DESCRIPTION: DEXA AXIAL SKELETON BONE DENSITY 1 OR MORE SITES REASON FOR STUDY: 63 y/o year old F with given history of: Postmenopausal state Screening. 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 IMPRESSION: Normal bone mass. REFERENCE: Bone mineral density: T-Score: Normal (T-score above or = -1.0) Low bone mass (T-score between -1.0 and -2.5) replaces the previously used term osteopenia Osteoporosis (T-score = or below -2.5) Z-Score: Within the expected range for age (Z-score above -2.0) Below the expected range for age (Z-score is -2.0 or below) Please see below follow up recommendations. Medical evaluation for secondary causes of low bone mineral density may be appropriate. FRAX is a World Health Organization validated fracture risk assessment tool that calculates a person's 10 year probability of a major osteoporosis related fracture and hip fracture. According to the National Osteoporosis Foundation guidelines, postmenopausal women and men age 50 or older with low bone mass and a 10 year probability of a major osteoporosis related fracture = or greater than 20% or a 10 year probability of a hip fracture = or greater than 3% should be considered for pharmacological treatment for the prevention of osteoporosis. For further information, including treatment recommendations, please refer to the 2019 ISCD Official Positions (http://www.iscd.org) and the NOF's Clinician's Guide to Prevention and Treatment of Osteoporosis (http://www.nof.org/professionals/clinical-guidelines) THIS IS AN ELECTRONICALLY VERIFIED FINAL REPORT 07/30/2024 6:17 PM - Electronically signed by David England M.D. MF: RICH Report ID: [id number] Reading Location: [place] [address] Procedure Note David England MD - 07/30/2024 EXAM DESCRIPTION: DEXA AXIAL SKELETON BONE DENSITY 1 OR MORE SITES REASON FOR STUDY: 63 y/o year old F with given history of:Postmenopausal state Screening. 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 IMPRESSION: Normal bone mass. REFERENCE: Bone mineral density: T-Score: Normal (T-score above or = -1.0) Low bone mass (T-score between -1.0 and -2.5) replaces thepreviously used term osteopenia Osteoporosis (T-score = or below -2.5) Z-Score: Within the expected range for age (Z-score above -2.0) Below the expected range for age (Z-score is -2.0 or below) Please see below follow up recommendations. Medical evaluation forsecondary causes of low bone mineral density may be appropriate. FRAX is a World Health Organization validated fracture risk assessmenttool that calculates a person's 10 year probability of a major osteoporosisrelated fracture and hip fracture. According to the National OsteoporosisFoundation guidelines, postmenopausal women and men age 50 or older with low bonemass and a 10 year probability of a major osteoporosis related fracture = or greater than 20% or a 10 year probability of a hip fracture = or greaterthan 3% should be considered for pharmacological treatment for the preventionof osteoporosis. For further information, including treatment recommendations, please referto the 2019 ISCD Official Positions (http://www.iscd.org) and the NOF's Clinician's Guide to Prevention and Treatment of Osteoporosis (http://www.nof.org/professionals/clinical-guidelines) THIS IS AN ELECTRONICALLY VERIFIED FINAL REPORT 07/30/2024 6:17 PM - Electronically signed by David England M.D. MF: RICH Report ID: [id number] Reading Location: [place] [address] Betty Juarez MD [facility] DXA PROCEDURES F inal Result * Screening Mammogram Bilateral W [place] (07/30/2024 10:13 AM CDT) Anatomical Region Laterality Modality Breast Bilateral Mammography 08/14/2024 8:14 AM CDT Impressions 08/14/2024 8:14 AM CDT There is no mammographic evidence of malignancy. The patient may continue screening mammography as per ACR guidelines. FINAL ASSESSMENT: BI-RADS Category 1: Negative. Electronically signed by: Shara Mckeon M.D. Narrative 08/14/2024 8:14 AM CDT EXAMINATION: BILATERAL SCREENING MAMMOGRAM WITH TOMOGRAPHY COMPARISON(S): None. TECHNIQUE: Full-field 2D and digital breast tomosynthesis (DBT) images were obtained. CAD was utilized. BREAST PARENCHYMAL COMPOSITION: The breasts are almost entirely fatty. FINDINGS: There are no suspicious masses. No suspicious calcifications are seen. There is no unexplained architectural distortion. There is no skin thickening seen. There are no mammographically abnormal lymph nodes seen in the axillae or elsewhere. Betty Juarez MD G MAMMO PROCEDURES Final Result * Hepatitis C antibody Blood (03/03/2024 10:10 AM CDT) Hep C Ab Nonreactive Nonreactive Comment: Interpretive Data Nonreactive: Antibodies to HCV not detected. Does NOT exclude the possibility of recent exposure to HCV. Equivocal: Equivocal for HCV antibodies. Supplemental molecular testing will be automatically performed to determine infection status in accordance with current CDC screening recommendations. Reactive: Positive for HCV antibodies. This may represent current or past HCV infection. Supplemental molecular testing will be automatically performed to determine current infection status in accordance with current CDC screening recommendations. Interpretive data was last revised on 2020. Testing performed by: [facility], [address] [place] [address]., [id number] Blood 03/03/2024 10:1 0 AM CDT 03/03/2024 11:32 AM CDT Kurt Talavera MD LAB MICROBIOLOGY - [facility] ORDERABLES Final Result [facility] Department [place] [address] from Last 3 Months or Most Recently Relevant to Health Maintenance Insurance [employer] [employer] [place] [employer] [place] Advance Directives For more information, please contact: [phone] * Full Code (Latest Code Status on File) Date Activated Date Inactivated Comments 10/31/2024 8:31 PM 11/03/2024 6:36 PM Care Teams [employer] Relationship Specialty Start Date End Date Bryan Saenz MD [address] [place] [address] DR HARKINS B [facility] [address] [place] [address] PCP - General Family Medicine 09/09/24
--- OUTSIDE RECORDS SUMMARY | 2024-12-16 15:25 | XMS_ITS | Clinical Summary ---
Author Organization [facility] Lakesha Perez Address [address] [place] [address] Care Team Providers Care Last Greaser Name Role Phone Unavailable Primary Care Provider Unavailabl e Allergies Active Allergy Reactions Criticality Noted Date Comments Diphenhydramine Hives,Rash High 06/08/2023 Domiphen Hives High 06/08/2023 Penicillins Hives,Swelling High 09/12/2011 Pravastatin Hives High 06/08/2023 Medications aspirin (ECOTRIN EC) 81 mg Tablet, Delayed Release (E.C.) Take 81 mg by mouth daily. 09/17/2023 Active atorvastatin (LIPITOR) 40 mg tablet Take 40 mg by mouth daily. 04/23/2024 Active docusate sodium (COLACE) 100 mg capsule -- 10/15/2023 Active hydroCHLOROthiaz lina 25 mg tablet Take 25 mg by mouth daily. 03/11/2024 Active lisinopriL (PRINIVIL) 40 mg tablet Take 40 mg by mouth daily. 03/05/2024 Active multivitamin with folic acid 400 mcg Tablet tablet -- Active nitroglycerin (NITROSTAT) 0.4 mg Tablet, Sublingual Place 0.4 mg under tongue. 07/13/2022 Active amLODIPine (NORVASC) 10 mg tablet Take 10 mg by mouth daily. 09/17/2023 Active oxyBUTYnin (DITROPAN) 5 mg tablet Take 5 mg by mouth 2 times daily. 09/17/2023 Active pantoprazole (PROTONIX) 40 mg Tablet, Delayed Release (E.C.) Take 40 mg by mouth daily. 09/17/2023 Active polyethylene glycol (MIRALAX) 17 gram Powder in Packet Take 17 Grams by mouth 2 times daily. Active Active Problems No known active problems Encounters Date Type Department Care Team Description 12/16/2024 1:30 PM [employer] Office Visit [facility] [address] [place] [address] Ken Eller MD Rectal cancer (CMS/HCC) (Primary Dx) from Last 3 Months Social History Tobacco Use Types Packs/Day Years Used Date Smoking Tobacco: Former Cigarettes 1 20 Q uit: 12/16/2009 Tobacco Cessation:Counseling Given: Not Answered Alcohol Use Standard Drinks/Week Comments Not Currently 0 (1 standard drink = 0.6 oz pur e alcohol) Comments No Sex and Gender Information Value Date Recorded Sex Assigned at Not on file Legal Sex Female 12:06 PM [employer] Gender Identity Not on file Sexual Orientation Not on file Last Filed Vital Signs Vital Sign Reading Time Taken Comments Blood Pressure 159/81 12/16/2024 1:43 PM [employer] took medication late has not kicked in Pulse 72 12/16/2024 1:43 PM [employer] Temperature 36.3 C (97.3 F) 12/16/2024 1:43 PM [employer] Respiratory Rate - - Oxygen Saturation 95% 12/16/2024 1:4 3 PM [employer] Inhaled Oxygen Concentration - - Weight 88.5 kg (195 lb) 12/16/2024 1:43 PM [employer] Height 170.2 cm (5' 7 ) 12/16/2024 1:43 PM [employer] Body Mass Index 30.54 12/16/2024 1:43 PM [employer] Plan of Treatment Upcoming Encounters Date Type Department Care Team (Late st Contact Info) Description 12/24/2024 4:30 PM [employer] Telephone Check Up [facility] [address] [place] [address] Ken Eller MD [address] [facility] [address] [place] [address] 03/25/2025 2:45 PM CDT Office Visit [facility] [address] [place] [address] Ken Eller MD [address] [facility] [address] [place] [phone] Health Maintenance Due Date Last Done Comments Preventative Visit-Managed Medicaid 1977 COLORECTAL SCREENING 2003 Colorectal Cancer Screening 2003 FIT-DNA Q 3 years 2003 FIT/FOBT Q 1 year 2003 Flex Sig/CT Colonography Q 5 years 2003 PNEUMOCOCCAL VACCINE 65+ YEA RS (1 of 1 - PCV) 2008 ZOSTER VACCINE (1 of 2) 2008 INFLUENZA VACCINE (#1) 2024 , 06/24/2021, 09/03/2020, Additional history exists COVID-19 Vaccine (2 - 2023-2 5 season) 2024 09/15/2022 BREAST CANCER SCREENING 07/30/2025 07/30/2024 DTAP/TDAP/TD VACCINES (3 - T d or Tdap) 07/02/2027 07/02/2017, 09/08/2009 RSV VACCINE (60+ or ) (1 - 1-dose 75+ series) 2033 OSTEOPOROSIS SCREENING Completed 07/30/2024, 2023 Insurance [place]
--- OUTSIDE RECORDS SUMMARY | 2024-12-16 15:25 | XMS_ITS | Referral Summary ---
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 Name Role Phone Bryan Saenz MD Primary Care Provider [phone] Encounters Date Type Department Care Team Description 11/03/2024 2:05 PM REGISTERED NURSES - 11/03/2024 3:10 PM REGISTERED NURSES Surgery [facility] Cardiac Catheterization 1 [place] [address] Washington Perez MD LEFT HEART CATHETERIZATION WITH CORONARY ANGIOGRAPHY AND WITH OR WITHOUT LEFT VENTRICULOGRAM [id number] 10/31/2024 12:26 PM REGISTERED NURSES - 11/03/2024 2:30 PM REGISTERED NURSES Hospital Encounter [facility] Acute Medicine 1 [place] [address] Hilario Liu MD Holland, Kristy Lynn, MD Huynh, Kiet T., MD Richards, Brandin Lemos Jr., MD Chest pain, unspecified type (Primary Dx); Musculoskeletal chest pain [R07.89]; Gastroesophageal reflux disease, unspecified whether esophagitis present [K21.9]; History of rectal cancer [Z85.048]; Hypertension, essential [I10]; Personal history of tobacco use [Z87.891]; Pure hypercholesterolemia [E78.00]; History of alcohol use [Z87.898]; Prediabetes [R73.03] Discharge Disposition: Discharge to home or self care 10/31/2024 12:10 PM REGISTERED NURSES - 10/31/2024 11:59 PM REGISTERED NURSES Hospital Encounter [facility] Emergency, Room R Discharge Disposition: Discharge to home or self care from Last 3 Months Allergies Active Allergy Reactions Criticality Noted Date [...] 12/20/2022 - was following with Oncology in [place] and was under surveillance - has hx [...] 12/20/2022 - was following with Oncology in [place] and was under surveillance - has hx [...] of cdif and vit B12 deficiency with extermination supervisor use of PPI. - continue current management [...] of cdif and vit B12 deficiency with extermination supervisor use of PPI. - recheck labs, orders [...] prior location where she had mammogram in [place] so we can request an obtain records History of rectal cancer 12/23/2023 Resolved Problems Problem Noted Date Diagnosed Date Resolved Date Urinary tract infection in female 12/23/2023 03/03/2024 Immunizations Name Administration Dates Next Due H1N1 Inj 11/02/2009 Influenza, Quadrivalent, Rec ombinant, Egg Free, Preservative Free, Intramuscular 06/24/2021 Influenza, Quadrivalent, Spl it, Intramuscular 09/18/2019,08/10/2017,09/05/2016 Influenza, Quadrivalent, Spl it, Preservative Free, Intramuscular 09/17/2023,09/03/2020 Influenza, Split 08/27/2012,11/02/2009 Influenza, Trivalent, IM (MDV) 08/27/2012,2008 Moderna Sars-cov-2 Bivalent Vaccine 50 Mcg/0.5 mL (12+ YRS)-Blue/Marroquin 09/15/2022 Tdap 07/02/2017,09/08/2009,09/08/2009 Social History Tobacco Use Types Packs/Day Years Used Date Smoking Tobacco: Former Cigarettes 0.1 36 S tarted: 1979 Tobacco Cessation:Counseling Given: Not Answered [facility] Utilities Answer Date Recorded In the past 12 months has th e [employer], gas, oil, or water company threatened to [...] often do you attend chur ch or restorationism services? More than 4 times per year 11/03/2024 Do you belong to any clubs o r organizations such as methodist groups, unions, fraternal or athletic groups, or [...] any time in the past [address] [facility], were you homeless or living in a [...] Comments Blood Pressure 119/61 11/03/2024 11:26 AM REGISTERED NURSES Pulse 68 11/03/2024 11:26 AM REGISTERED NURSES Temperature 36.5 C (97.7 F) 11/03/2024 11:26 AM REGISTERED NURSES Respiratory Rate 18 11/03/2024 11:26 AM REGISTERED NURSES Oxygen Saturation 95% 11/03/2024 11:26 AM REGISTERED NURSES Inhaled Oxygen Concentration - - Weight 89.9 kg (198 lb 3.1 oz) 10/31/2024 10:55 PM REGISTERED NURSES Height 171.5 cm (5' 7.5 ) 10/31/2024 10:55 PM CS T Body Mass Index 30.58 10/31/2024 10:55 PM REGISTERED NURSES Plan of Treatment Not on file Procedures Procedure Name Priority Date/Time Associated Diagnosis Comments LEFT HEART CATHETERIZATION WITH CORONARY ANGIOGRAPHY AND WITH AND WITHOUT LEFT VENTRICULOGRAM Routine 11/03/2024 9:01 AM REGISTERED NURSES Chest pain, unspecified type EGFR Routine 11/03/2024 2:45 AM REGISTERED NURSES DIFFERENTIAL AUTO Routine 11/03/2024 2:4 5 AM REGISTERED NURSES COMPREHENSIVE METABOLIC PANEL Routine 11/03/2024 2:45 AM REGISTERED NURSES CBC WITH AUTO DIFFERENTIAL Routine 11/03/2024 2:45 AM REGISTERED NURSES EGFR Routine 11/02/2024 10:06 AM REGISTERED NURSES DIFFERENTIAL AUTO Routine 11/02/2024 10:06 AM REGISTERED NURSES COMPREHENSIVE METABOLIC PANEL Routine 11/02/2024 10:06 AM REGISTERED NURSES CBC WITH AUTO DIFFERENTIAL Routine 11/02/2024 10:06 AM REGISTERED NURSES TROPONIN T HIGH-SENSITIVITY 6-HOUR Timed 11/02/2024 12:14 AM REGISTERED NURSES TROPONIN T HIGH-SENSITIVITY 4-HR Timed 11/01/2024 9:14 PM REGISTERED NURSES TROPONIN T HIGH-SENSITIVITY 2-HOUR Timed 11/01/2024 7:12 PM REGISTERED NURSES TROPONIN T HIGH-SENSITIVITY SERIES (BASELINE, 2HR, 4HR, 6HR) Routine 11/01/2024 5:37 PM REGISTERED NURSES ECG 12-LEAD Routine 11/01/2024 3:42 PM REGISTERED NURSES TRANSTHORACIC ECHO (TTE) COMPLETE W DOPPLER/CF WO CONTRAST Routine 11/01/2024 8:57 AM REGISTERED NURSES EGFR Routine 11/01/2024 2:22 AM REGISTERED NURSES DIFFERENTIAL AUTO Routine 11/01/2024 2:2 2 AM REGISTERED NURSES CBC WITH AUTO DIFFERENTIAL Routine 11/01/2024 2:22 AM REGISTERED NURSES COMPREHENSIVE METABOLIC PANEL Routine 11/01/2024 2:22 AM REGISTERED NURSES INFLUENZA A/B, RSV, AND COVID-19 PCR Routine 10/31/2024 8:[address] CHEST PE W CONTRAST ED 6:51 PM REGISTERED NURSES TROPONIN T HIGH-SENSITIVITY 6-HOUR Timed 10/31/2024 6:33 PM REGISTERED NURSES TROPONIN T HIGH-SENSITIVITY 4-HR Timed 10/31/2024 4:22 PM REGISTERED NURSES TROPONIN T HIGH-SENSITIVITY 2-HOUR Timed 10/31/2024 2:23 PM REGISTERED NURSES XR CHEST 1 VIEW ED 10/31/2024 12:58 PM REGISTERED NURSES ECG 12-LEAD STAT 10/31/2024 12:32 PM REGISTERED NURSES D-DIMER, QUANTITATIVE Add-On 10/31/2024 12:32 PM REGISTERED NURSES EGFR STAT 10/31/2024 12:32 PM REGISTERED NURSES DIFFERENTIAL AUTO STAT 10/31/2024 12:32 PM REGISTERED NURSES TROPONIN T HIGH-SENSITIVITY SERIES (BASELINE, 2HR, 4HR, 6HR) STAT 10/31/2024 12:32 PM REGISTERED NURSES COMPREHENSIVE METABOLIC PANEL STAT 10/31/2024 12:32 PM REGISTERED NURSES CBC WITH AUTO DIFFERENTIAL STAT 10/31/2024 12:32 PM REGISTERED NURSES DEXA AXIAL SKELETON BONE DENSITY 1 OR [...] AND WITHOUT LEFT VENTRICULOGRAM (11/03/2024 9:01 AM REGISTERED NURSES) Anatomical Region Laterality Modality X-Ray Angiograph y Narrative 11/03/2024 10:42 AM REGISTERED NURSES Attending: Washington Perez MD Indication: Unstable angina [...] factors modification 2. Aspirin 81 mg daily us Main Burkett MD CV CARDIAC CATH PROCEDURES Fi nal Result * eGFR (11/03/2024 2:45 AM REGISTERED NURSES) eGFR 82 >=60 mL/min/1. 73 m2 Comment: [...] last reviewed 2021. Blood 11/03/2024 2:45 AM REGISTERED NURSES 11/03/2024 3:15 AM REGISTERED NURSES us Brandin Dela Cruz Jr., MD LAB BLOOD ORDERABLE S Final Result [facility] ([address]) 1 [facility] [place] [address] * Differential, auto (11/03/2024 2:45 AM REGISTERED NURSES) Neutrophil abs 4.2 1.5 - 6.5 K/cumm Imm gran abs 0.0 0.0 - 0.1 K/cumm [facility] ([place]) Lymphocyte abs 1.5 0.8 - 3.3 K/cumm [facility] ([place]) Monocyte abs 0.4 0.2 - 0.8 K/cumm [facility] ([place]) Eosinophil abs 0.3 0.0 - 0.5 K/cumm [facility] ([place]) Basophil abs 0.0 0.0 - 0.1 K/cumm [facility] ([facility]) Neutrophil pct 66.5 % [facility] [...] revised on 2018. Blood 11/03/2024 2:45 AM REGISTERED NURSES 11/03/2024 3:15 AM REGISTERED NURSES us Brandin Dela Cruz Jr., MD LAB BLOOD ORDERABLE S Final Result [facility] ([place]) 1 [facility] Department [place] [address] * (ABNORMAL) CBC with auto differential (11/03/2024 2:45 AM REGISTERED NURSES) WBC 6.4 3.8 - 9.9 K/cumm Hgb 11.9 11.9 - 15.5 g/dL [facility] ([place]) Hct 35.0(L) 35.6 - 45.5 % [facility] ([place]) Plt 217 150 - 400 K/cumm [facility] ([place]) MPV 10.3 9.1 - 12.3 fL [facility] ([place]) RBC 3.91 3.90 - 5.20 M/cumm [facility] ([place]) MCV 89.5 81.3 - 96.4 fL [facility] MCH 30.4 27.1 - 33.3 pg [facility] MCHC 34.0 32.3 - 35.7 g/dL [facility] RDW CV 13.3 11.1 - 14.9 % [facility] RDW SD 43.5 35.7 - 48.1 fL [facility] ([place]) NRBC abs 0.00 0.00 - 0.01 K/cumm [facility] ([place]) Blood 11/03/2024 2:45 AM REGISTERED NURSES 11/03/2024 3:15 AM REGISTERED NURSES us Brandin Dela Cruz Jr., MD LAB BLOOD ORDERABLE S Final Result [facility] ([place]) 1 [facility] [place] [address] * Comprehensive metabolic panel (11/03/2024 2:45 AM REGISTERED NURSES) Sodium 139 135 - 145 mmol/L Potassium, pl 3.7 3.3 - 4.9 mmol/L [facility] ([place]) Chloride 102 97 - 110 mmol/L [facility]) CO2 25 22 - 32 mmol/L [facility] ([place]) Anion gap 12 2 - 15 mmol/L [facility] BUN 16 6 - 25 mg/dL [facility] ([place]) Creatinine 0.80 0.60 - 1.10 mg/dL [facility] ([place]) Glucose 99 70 - 199 mg/dL [facility] Comment: Interpretive Data Fasting glucose [...] 6.8 6.5 - 8.5 g/dL [facility] ([place]) Albumin 3.7 3.5 - 5.0 g/dL [facility] ([place]) Alk phos 92 40 - 130 Units/L [facility] ([place]) ALT 7 7 - 45 Units/L [facility] ([place]) AST 13 10 - 45 Units/L [facility] ([place]) Blood 11/03/2024 2:45 AM REGISTERED NURSES 11/03/2024 3:15 AM REGISTERED NURSES us Brandin Dela Cruz Jr., MD LAB BLOOD ORDERABLE S Final Result [facility] 1 [facility] Department [place] [address] * eGFR (11/02/2024 10:06 AM REGISTERED NURSES) eGFR 88 >=60 mL/min/1. 73 m2 Comment: [...] reviewed 2021. Blood 11/02/2024 10:0 6 AM REGISTERED NURSES 11/02/2024 10:26 AM REGISTERED NURSES us Brandin Dela Cruz Jr., MD LAB BLOOD ORDERABLE S Final Result [facility] ([address]) 1 [facility] Department [place] [address] * Differential, auto (11/02/2024 10:06 AM REGISTERED NURSES) Neutrophil abs 5.0 1.5 - 6.5 K/cumm Imm gran abs 0.0 0.0 - 0.1 K/cumm [facility] ([place]) Lymphocyte abs 1.2 0.8 - 3.3 K/cumm [facility] ([address]) Monocyte abs 0.6 0.2 - 0.8 K/cumm [facility] ([place]) Eosinophil abs 0.2 0.0 - 0.5 K/cumm [facility] ([place]) Basophil abs 0.0 0.0 - 0.1 K/cumm [facility] ([place]) Neutrophil pct 70.9 % [facility] ([address]) Comment: Interpretive Data Percent cell count reference [...] 2018. Monocyte pct 8.1 % [facility] ([address]) Comment: Interpretive Data Percent cell count reference [...] on 2018. Blood 11/02/2024 10:0 6 AM REGISTERED NURSES 11/02/2024 10:26 AM REGISTERED NURSES us Brandin Dela Cruz Jr., MD LAB BLOOD ORDERABLE S Final Result [facility] ([place]) 1 [facility] Department [place] [address] * (ABNORMAL) CBC with auto differential (11/02/2024 10:06 AM REGISTERED NURSES) WBC 7.0 3.8 - 9.9 K/cumm Hgb [...] [facility] ([facility]) Blood 11/02/2024 10:0 6 AM REGISTERED NURSES 11/02/2024 10:26 AM REGISTERED NURSES us Brandin Dela Cruz Jr., MD LAB BLOOD ORDERABLE S Final Result [facility] ([place]) 1 [facility] Department [place] [address] * Comprehensive metabolic panel (11/02/2024 10:06 AM REGISTERED NURSES) Sodium 138 135 - 145 mmol/L Potassium, [...] [facility] ([place]) Blood 11/02/2024 10:0 6 AM REGISTERED NURSES 11/02/2024 10:26 AM REGISTERED NURSES Brandin Dela Cruz Jr., MD LAB BLOOD ORDERABLE S Final Result Performing Organization Address [facility] Co de Phone Number [facility] ([place]) [address] [place] [address] * Troponin T high-sensitivity 6-hour (11/02/2024 12:14 AM REGISTERED NURSES) Trop T hs <6 <=14 ng/L Comment: Interpretive Data For further hscTnT resources including the diagnostic algorithm and an aid in interpretation, copy and paste this link: https://nrl.[employer].org/show/hsTrop Current Interpretive Data last revised 2020. Trop T hs delta 0 ng/L [facility] ([place]) Trop T hs interp Insignificant [facility] ([place]) Blood 11/02/2024 12:1 4 AM REGISTERED NURSES 11/02/2024 1:25 AM REGISTERED NURSES Brandin Dela Cruz Jr., MD LAB BLOOD ORDERABLE S Final Result Performing Organization Address [facility] Co de Phone Number [facility] ([address]) [address] [place] [address] * Troponin T high-sensitivity 4-hour (11/01/2024 9:14 PM REGISTERED NURSES) Trop T hs <6 <=14 ng/L Comment: Interpretive Data For further hscTnT resources including the diagnostic algorithm and an aid in interpretation, copy and paste this link: https://nrl.testLumicell Diagnostics.org/show/hsTrop Current Interpretive Data last revised 2020. Trop T hs delta 0 ng/L [facility] ([place]) Trop T hs interp Insignificant [facility] ([place]) Blood 11/01/2024 9:14 PM REGISTERED NURSES 11/01/2024 9:17 PM REGISTERED NURSES Brandin Dela Cruz Jr., MD LAB BLOOD ORDERABLE S Final Result Performing Organization Address City/[facility]/ZIP Co de Phone Number [facility] ([address]) 1 [facility] [place] [address] * Troponin T high-sensitivity 2-hour (11/01/2024 7:12 PM REGISTERED NURSES) Trop T hs <6 <=14 ng/L Comment: Interpretive Data For further hscTnT resources including the diagnostic algorithm and an aid in interpretation, copy and paste this link: https://nrl.testLumicell Diagnostics.org/show/hsTrop Current Interpretive Data last revised 2020. Trop T hs delta 0 ng/L [facility] ([address]) Trop T hs interp Insignificant [facility] ([address]) Blood 11/01/2024 7:12 PM REGISTERED NURSES 11/01/2024 7:15 PM REGISTERED NURSES Brandin Dela Cruz Jr., MD LAB BLOOD ORDERABLE S Final Result Performing Organization Address [facility] Co de Phone Number [facility] ([address]) [address] [place] [address] * Troponin T high-sensitivity series (baseline, 2hr, 4hr, 6hr) (11/01/2024 5:37 PM REGISTERED NURSES) Trop T hs <6 <=14 ng/L Comment: Interpretive Data For further hscTnT resources including the diagnostic algorithm and an aid in interpretation, copy and paste this link: https://nrl.testLumicell Diagnostics.org/show/hsTrop Current Interpretive Data last revised 2020. Blood 11/01/2024 5:37 PM REGISTERED NURSES 11/01/2024 5:44 PM REGISTERED NURSES Brandin Dela Cruz Jr., MD LAB BLOOD ORDERABLE S Final Result Performing Organization Address City/[facility]/ZIP Co de Phone Number [facility] ([address]) 1 [facility] [place] [address] * ECG 12 lead (11/01/2024 3:42 PM REGISTERED NURSES) 11/01/2024 3:42 PM REGISTERED NURSES Narrative [facility] - 11/03/2024 10:07 AM REGISTERED NURSES Vent Rate: 69 bpm RR Interval: 858 msec LA Interval: 199 msec QRS Duration: 115 msec QT Interval: 410 msec QTC Interval: 430 msec P-R-T Max: 64 - -3 - 52 degrees IMPRESSION: [...] Jr., MD ECG ORDERABLES Fin al Result [facility] [employer] [facility] * TRANSTHORACIC ECHO (TTE) COMPLETE W DOPPLER/CF WO CONTRAST (11/01/2024 8:57 AM REGISTERED NURSES) Anatomical Region Laterality Modality Ultrasound 11/01/2024 8:17 AM REGISTERED NURSES Narrative 11/01/2024 2:21 PM REGISTERED NURSES [address] [address] Echocardiogram Report Patient Name: BRIANA LEDESMA M : 1960 Study Date: 11/01/2024 8:17:11 AM Gender: F Tech: AIR MARSHAL Location: [id number] Ref Provider: MAIN BURKETT Height(Cm): 171 BSA: [...] 0.92 m/s [ 0.40 - 0.80 ] [place] Peak Richar 1.30 m/s TR Peak Richar [...] By: Dr Main Burkett 11/01/2024 2:21:19 PM REGISTERED NURSES 60 Procedure Note Main Burkett MD - 11/01/[address] [place] [address] Echocardiogram Report Patient Name: BRIANA LEDESMA M : 1960 Study Date: 11/01/2024 8:17:11 AM Gender: F Tech: AIR MARSHAL Location: [place] [address] Ref Provider: MAIN BURKETT Height(Cm): 171 BSA: [...] 0.92 m/s [ 0.40 - 0.80 ] [place] Peak Richar 1.30 m/s TR Peak Richar [...] By: Dr Main Burkett 11/01/2024 2:21:19 PM REGISTERED NURSES 60 us Main Burkett MD CV ECHO PROCEDURES Final Resu lt * eGFR (11/01/2024 2:22 AM REGISTERED NURSES) eGFR 78 >=60 mL/min/1. 73 m2 Comment: [...] of Race in Diagnosing Kidney Disease, JASN 202). The CKD-EPI equation should not be used for patients with unstable renal function and has not been validated in children and those over 70. Current interpretive data was last reviewed 2021. Blood 11/01/2024 2:22 AM REGISTERED NURSES 11/01/2024 3:44 AM REGISTERED NURSES us Tracy Mohamud MD LAB BLOOD ORDERABLES Rayna l Result [facility] [address]) 1 [facility] Department [place] [address] * Differential, auto (11/01/2024 2:22 AM REGISTERED NURSES) Neutrophil abs 5.5 1.5 - 6.5 K/cumm Imm gran abs 0.0 0.0 - 0.1 K/cumm [facility] ([address]) Lymphocyte abs 1.6 0.8 - 3.3 K/cumm [facility] ([address]) Monocyte abs 0.5 0.2 - 0.8 K/cumm [facility] ([address]) Eosinophil abs 0.2 0.0 - 0.5 K/cumm [facility] ([address]) Basophil abs 0.0 0.0 - 0.1 K/cumm [facility] ([address]) Neutrophil pct 69.8 % [facility] ([address]) Comment: Interpretive Data Percent cell count reference ranges are not reported, since discordance with absolute values may lead to misinterpretation of CBC data. Current Interpretive Data was last revised on 2018. Imm gran pct 0.3 % [facility] ([address]) Comment: Interpretive Data Percent cell count reference ranges are not reported, since discordance with absolute values may lead to misinterpretation of CBC data. Current Interpretive Data was last revised on 2018. Lymphocyte pct 19.9 % [facility] ([address]) Comment: Interpretive Data Percent cell count reference ranges are not reported, since discordance with absolute values may lead to misinterpretation of CBC data. Current Interpretive Data was last revised on 2018. Monocyte pct 6.8 % [facility] ([address]) Comment: Interpretive Data Percent cell count reference ranges are not reported, since discordance with absolute values may lead to misinterpretation of CBC data. Current Interpretive Data was last revised on 2018. Eosinophil pct 2.9 % [facility] ([address]) Comment: Interpretive Data Percent cell count reference ranges are not reported, since discordance with absolute values may lead to misinterpretation of CBC data. Current Interpretive Data was last revised on 2018. Basophil pct 0.3 % [facility] ([address]) Comment: Interpretive Data Percent cell count reference ranges are not reported, since discordance with absolute values may lead to misinterpretation of CBC data. Current Interpretive Data was last revised on 2018. Blood 11/01/2024 2:22 AM REGISTERED NURSES 11/01/2024 3:44 AM REGISTERED NURSES Tracy Mohamud MD LAB BLOOD ORDERABLES Rayna l Result [facility] ([place]) [address] [facility] [place] [address] * (ABNORMAL) CBC with auto differential (11/01/2024 2:22 AM REGISTERED NURSES) WBC 7.8 3.8 - 9.9 K/cumm Hgb 11.3(L) 11.9 - 15.5 g/dL [facility] ([place]) Hct 34.3(L) 35.6 - 45.5 [...] RDW SD 45.3 35.7 - 48.1 fL [facility] ([place]) NRBC abs 0.00 0.00 - 0.01 K/cumm [facility] ([place]) Blood 11/01/2024 2:22 AM REGISTERED NURSES 11/01/2024 3:44 AM REGISTERED NURSES Tracy Mohamud MD LAB BLOOD ORDERABLES Rayna l Result [facility] ([place]) [address] [facility] [place] [address] * Comprehensive metabolic panel (11/01/2024 2:22 AM REGISTERED NURSES) Sodium 138 135 - 145 mmol/L Potassium, [...] [facility] ([place]) Blood 11/01/2024 2:22 AM REGISTERED NURSES 11/01/2024 3:44 AM REGISTERED NURSES Tracy Mohamud MD LAB BLOOD ORDERABLES Rayna salvador Result [facility] ([place]) 1 [facility] [place] [address] * Influenza A/B, RSV, and COVID-19 PCR Nasopharyngeal (10/31/2024 8:48 PM REGISTERED NURSES) COVID-19 RNA Negative Negative Influenza A RNA Negative Negative [facility] ([place]) Influenza B RNA Negative Negative [facility] ([place]) RSV RNA Negative Negative [facility] ([place]) Comment: Interpretive data: Testing performed by [facility]. This test is performed using the [employer] Xpert Xpress CoV-2/Flu/RSV plus assay. This is a multiplex, real- time reverse transcriptase PCR assay intended for the qualitative detection of nucleic acid from SARS-CoV-2, influenza A, influenza B, and respiratory syncytial virus. This assay has been cleared by the [place] Food and Drug administration. The performance characteristics have been verified by the [facility]. Results must be considered in the clinical context, and a negative result does not rule out infection. Interpretive Data last revised 2023 Nasopharyngeal 10/31/2024 8: 48 PM REGISTERED NURSES 10/31/2024 8:50 PM REGISTERED NURSES Narrative [facility] Doyle[facility]) - 10/31/2024 9:34 PM REGISTERED NURSES Is the Patient experiencing symptoms consistent with COVID?->No Kingsley Mays MD LAB MICROBIOLOGY - GENERAL ORDSyl [facility] Final Result [facility]) 1 [facility] [place] [address] * CT Chest PE (CTA) W Contrast (10/31/2024 6:51 PM REGISTERED NURSES) Anatomical Region Laterality Modality Body N/A Computed Tomogra phy 10/31/2024 7:23 PM REGISTERED NURSES Narrative 10/31/2024 7:36 PM REGISTERED NURSES EXAM DESCRIPTION: CT CHEST PE (CTA) W [...] Bethany Marsh M.D. FT: FT Report ID: [id number] Reading Location: [place] [address] Procedure Note Bethany Melgar MD - 10/31/2024 [...] Bethany Marsh M.D. FT: FT Report ID: [id number] Reading Location: [place] [address] us Tracy Mohamud MD IMG CT PROCEDURES Final R esult * Troponin T high-sensitivity 6-hour (10/31/2024 6:33 PM REGISTERED NURSES) Trop T hs <6 <=14 ng/L Comment: Interpretive Data For further hscTnT resources including the diagnostic algorithm and an aid in interpretation, copy and paste this link: https://nrl.testcatalog.org/show/hsTrop Current Interpretive Data last revised 2020. Trop T hs delta 0 ng/L [facility] ([address]) Trop T hs interp Insignificant [facility] ([address]) Blood 10/31/2024 6:33 PM REGISTERED NURSES 10/31/2024 6:36 PM REGISTERED NURSES us Hilario Liu MD LAB BLOOD ORDERABLE S Final Result [facility] ([address]) 1 [facility] Department [place] [address] * Troponin T high-sensitivity 4-hour (10/31/2024 4:22 PM REGISTERED NURSES) Trop T hs <6 <=14 ng/L Comment: Interpretive Data For further hscTnT resources including the diagnostic algorithm and an aid in interpretation, copy and paste this link: https://nrl.[employer]catCross[employer].org/show/hsTrop Current Interpretive Data last revised 2020. Trop T hs delta 0 ng/L [facility] ([place]) Trop T hs interp Insignificant [facility] ([place]) Blood 10/31/2024 4:22 PM REGISTERED NURSES 10/31/2024 4:26 PM REGISTERED NURSES Hilario Liu MD LAB BLOOD ORDERABLE S Final Result [facility] ([place]) 1 [facility] [place] [address] * Troponin T high-sensitivity 2-hour (10/31/2024 2:23 PM REGISTERED NURSES) Pathologist [facility] Trop T hs <6 <=14 ng/L Comment: Interpretive Data For further hscTnT resources including the diagnostic algorithm and an aid in interpretation, copy and paste this link: https://nrl.[employer]catCross[employer].org/show/hsTrop Current Interpretive Data last revised 2020. Trop T hs delta 0 ng/L [facility] ([place]) Trop T hs interp Insignificant [facility] ([facility]) Blood 10/31/2024 2:23 PM REGISTERED NURSES 10/31/2024 2:25 PM REGISTERED NURSES Hilario Liu MD LAB BLOOD ORDERABLE S Final Result JEMAL KEANE (VASHTI) 1 [facility] [place] [address] * XR Chest 1 View (10/31/2024 12:58 PM REGISTERED NURSES) Anatomical Region Laterality Modality Body, Chest N/A Computed Radiogr aphy 10/31/2024 1:18 PM REGISTERED NURSES Narrative 10/31/2024 1:19 PM REGISTERED NURSES EXAM DESCRIPTION: XR CHEST 1 VIEW REASON FOR STUDY: chest pain, c/f pna Pt arrives ambulatory from ems stretcher to ed stretcher from home. Pt states was exerting self helping care for another at home and began having chest pain. 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 Vss. TECHNIQUE: 1 [...] Electronically signed by Elfego Odell M.D. MZ: IMELDA Report ID: [id number] Reading Location: [id number] Procedure Note Elfego Odell MD - 10/31/2024 EXAM DESCRIPTION: XR CHEST 1 VIEW REASON FOR STUDY: chest pain, c/f pna Pt arrives ambulatory from ems stretcher to ed stretcher from home. Ptstates was exerting self helping care for another at home and began having chest pain. 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 Vss. TECHNIQUE: 1 [...] Elfego Odell M.D. MZ: MZ Report ID: [id number] Reading Location: [place] [address] Hilario Liu MD IMG XR PROCEDURES F inal Result * ECG 12 lead (10/31/2024 12:32 PM REGISTERED NURSES) 10/31/2024 12:3 2 PM REGISTERED NURSES Narrative [facility] - 11/01/2024 5:36 AM REGISTERED NURSES Vent Rate: 68 bpm RR Interval: 879 msec LA Interval: 186 msec QRS Duration: 95 msec QT Interval: 410 msec QTC Interval: 427 msec P-R-T Max: 56 - -23 - 37 degrees IMPRESSION: SINUS RHYTHM BORDERLINE LEFT AXIS DEVIATION [QRS AXIS < -20] BORDERLINE ECG NO CHANGE FROM PREVIOUS TRACING NOTED Electronically Signed By: Etienne Mason MD Hilario Liu MD ECG ORDERABLES Fin al Result [facility] [employer] [facility] * Troponin T high-sensitivity series (baseline, 2hr, 4hr, 6hr) (10/31/2024 12:32 PM REGISTERED NURSES) Trop T hs <6 <=14 ng/L Comment: Interpretive Data For further hscTnT resources including the diagnostic algorithm and an aid in interpretation, copy and paste this link: https://nrl.testcatalog.org/show/hsTrop Current Interpretive Data last revised 2020. Blood 10/31/2024 12:3 2 PM REGISTERED NURSES 10/31/2024 12:34 PM REGISTERED NURSES us Hilario Liu MD LAB BLOOD ORDERABLE S Final Result JEMAL KEANE ([address]) 1 [facility] [place] [address] * eGFR (10/31/2024 12:32 PM REGISTERED NURSES) eGFR 77 >=60 mL/min/1. 73 m2 Comment: [...] reviewed 2021. Blood 10/31/2024 12:3 2 PM REGISTERED NURSES 10/31/2024 12:34 PM REGISTERED NURSES us Hilario Liu MD LAB BLOOD ORDERABLE S Final Result [facility] 1 [facility] [place] [address] * Differential, auto (10/31/2024 12:32 PM REGISTERED NURSES) Neutrophil abs 4.6 1.5 - 6.5 K/cumm [...] on 2018. Blood 10/31/2024 12:3 2 PM REGISTERED NURSES 10/31/2024 12:34 PM REGISTERED NURSES us Hilario Liu MD LAB BLOOD ORDERABLE S Final Result [facility] ([address]) 1 [facility] [place] [address] * CBC with auto differential (10/31/2024 12:32 PM REGISTERED NURSES) WBC 6.3 3.8 - 9.9 K/cumm Hgb 12.3 11.9 - 15.5 g/dL [facility] ([place]) Hct 36.1 35.6 - 45.5 % [facility] ([place]) Plt 227 150 - 400 K/cumm [facility] ([place]) MPV 10.1 9.1 - 12.3 fL [facility] ([place]) RBC 4.01 3.90 - 5.20 M/cumm JEMAL KEANE ([place]) MCV 90.0 81.3 - 96.4 fL JEMAL KEANE ([place]) MCH 30.7 27.1 - 33.3 pg JEMAL KEANE ([place]) MCHC 34.1 32.3 - 35.7 g/dL JEMAL KEANE ([place]) RDW CV 13.4 11.1 - 14.9 % JEMAL KEANE ([place]) RDW SD 44.2 35.7 - 48.1 fL JEMAL KEANE ([place]) NRBC abs 0.00 0.00 - 0.01 K/cumm JEMAL KEANE ([place]) Blood 10/31/2024 12:3 2 PM REGISTERED NURSES 10/31/2024 12:34 PM REGISTERED NURSES us Hilario Liu MD LAB BLOOD ORDERABLE S Final Result JEMAL MACHADON) 1 [facility] [place] [address] * (ABNORMAL) D-dimer, quantitative (10/31/2024 12:32 PM REGISTERED NURSES) D-Dimer 2,083(H) <=499 ng/mL FEU JEMAL KEANE ([place]HT[place]) Comment: Interpretive data FDA approved the D-dimer, [...] 68, VTE cut-off 680 ng/ml FEU. References; Schouten HT et al. Brit Med J. 2013;346:f2492. Deniz et al. Annals Int Med. 2015;163:701-11. Current interpretive data was last revised on 2019. Blood 10/31/2024 12:3 2 PM REGISTERED NURSES 10/31/2024 4:31 PM REGISTERED NURSES us Tracy Mohamud MD LAB BLOOD ORDERABLES Rayna salvador Result JEMAL KEANE ([place]) 1 [facility] [place] [address] * Comprehensive metabolic panel (10/31/2024 12:32 PM REGISTERED NURSES) Sodium 139 135 - 145 mmol/L Potassium, [...] [facility] ([place]) Blood 10/31/2024 12:3 2 PM REGISTERED NURSES 10/31/2024 12:34 PM REGISTERED NURSES us Hilario Liu MD LAB BLOOD ORDERABLE S Final Result JEMAL KEANE [address] [facility] [place] [address] * Dexa Axial Skeleton Bone Density 1 or 2 Site (07/30/2024 10:21 AM CDT) Anatomical Region Laterality Modality Body N/A Other 07/30/2024 6:14 PM CDT Narrative 07/30/2024 6:17 PM CDT EXAM DESCRIPTION: DEXA AXIAL SKELETON BONE DENSITY 1 OR MORE SITES REASON FOR STUDY: 63 y/o year old F with given history of: Postmenopausal state Screening. 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 MF: RICH Report ID: [id number] Reading Location: [address] Note David England MD - 07/30/2024 EXAM DESCRIPTION: DEXA AXIAL SKELETON BONE DENSITY 1 OR MORE SITES REASON FOR STUDY: 63 y/o year old F with given history of:Postmenopausal state Screening. 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 MF: RICH Report ID: [id number] Reading Location: [id number] [facility] Brandan Juarez MD IM DXA PROCEDURES F inal Result * Screening [...] the axillae or elsewhere. Betty Juarez MD IMG MAMMO PROCEDURES Final Result * Hepatitis C [...] last revised on 2020. Testing performed by: [facility], [address] [place] [address]., [id number] Blood 03/03/2024 10:1 0 AM CDT 03/03/2024 11:32 AM CDT Kurt Talavera MD LAB MICROBIOLOGY - [facility] ORDERABLES Final Result [facility] [address] [facility] [place] [address] from Last 3 Months or Most Recently Relevant to Health Maintenance [place] [address] [employer] [place] [employer] [place] Advance Directives For more information, please contact: [phone] * Full Code (Latest Code Status on File) Date Activated Date Inactivated Comments 10/31/2024 8:31 PM 11/03/2024 6:36 PM 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
--- OUTSIDE RECORDS SUMMARY | 2024-12-16 15:25 | XMS_ITS | Encounter Summary ---
Author Organization [facility] JAYMila [facility] Address [address] [place] [address] Care Team Providers Care Form Raiser Name Role Phone Unavailable Primary Care Provider Unavailabl e Reason for Referral * Eval and Treat (Routine) - Open Specialty Diagnoses / Procedures Referred By Contac t Referred To Contact Gastroenterology Diagnoses Rectal cancer (CMS/HCC) Procedures [place] OFFICE/OUTPATIENT ESTABLISHED MOD MDM 30 MIN [place] OFFICE/OUTPATIENT NEW MODERATE MDM 45 MINUTES 'L' COLON Ken Eller MD [address] [facility] [employer] [address] [place] [phone] Phone: tel: fax: Referral ID Status Reason Start Date Expiration Date V isits Requested Visits Authorized [id number] Open STL CTS 12/16/2024 12/16/2025 1 1 WAITER/WAITRESS * CT Scan (Routine) - Open Specialty Diagnoses / Procedures Referred By Contac t Referred To Contact Diagnoses Rectal cancer (CMS/HCC) Procedures CT ABDOMEN PELVIS W CONTRAST Ken Eller MD [address] [place] [phone] Phone: tel: fax: [place] [address] Referral ID Status Reason Start Date Expiration Date V isits Requested Visits Authorized [id number] Open STL CTS 12/16/2024 01/16/2026 1 1 WAITER/WAITRESS Encounter Details Date Type Department Care Team (Late st Contact Info) Description 12/16/2024 1:30 PM CLUB WAITER/WAITRESS Office Visit [facility] Oncology and Hematology [facility] [address] [place] [address] Ken Eller MD [address] [facility] [address] [place] [phone] Rectal cancer (CMS/HCC) (Primary Dx) Social History Tobacco Use Types Packs/Day Years Used Date Smoking Tobacco: Former Cigarettes 1 20 Q uit: 12/16/2009 Tobacco Cessation:Counseling Given: Not Answered Alcohol Use Standard Drinks/Week Comments Not Currently 0 (1 standard drink = 0.6 oz pur e alcohol) Comments No Sex and Gender Information Value Date Recorded Sex Assigned at Not on file Legal Sex Female 12:06 PM CLUB WAITER/WAITRESS Gender Identity Not on file Sexual Orientation Not on file documented as of this encounter Last Filed Vital Signs Vital Sign Reading Time Taken Comments Blood Pressure 159/81 12/16/2024 1:43 PM CLUB WAITER/WAITRESS took medication late has not kicked in Pulse 72 12/16/2024 1:43 PM CLUB WAITER/WAITRESS Temperature 36.3 C (97.3 F) 12/16/2024 1:43 PM CLUB WAITER/WAITRESS Respiratory Rate - - Oxygen Saturation 95% 12/16/2024 1:4 3 PM CLUB WAITER/WAITRESS Inhaled Oxygen Concentration - - Weight 88.5 kg (195 lb) 12/16/2024 1:43 PM CLUB WAITER/WAITRESS Height 170.2 cm (5' 7 ) 12/16/2024 1:43 PM CLUB WAITER/WAITRESS Body Mass Index 30.54 12/16/2024 1:43 PM CLUB WAITER/WAITRESS documented in this encounter Plan of Treatment Upcoming Encounters Date Type Department Care Team (Late st Contact Info) Description 12/24/2024 4:30 PM CLUB WAITER/WAITRESS Telephone Check Up [facility] Oncology and Hematology [facility] [address] [place] [address] Ken Eller MD [address] [facility] [address] [place] [phone] 03/25/2025 2:45 PM CDT Office Visit [facility] Oncology and Hematology [facility] [address] [place] [address] Ken Eller MD [address] [facility] [address] [place] [address] Scheduled Orders Name Type Priority Associated Diagnoses Orde r Schedule CBC WITH DIFFERENTIAL Lab Stat Rectal cancer (CMS/HCC) Expected: 12/16/2024, Expires: 12/16/2025 COMPREHENSIVE METABOLIC PANEL Lab Stat Rectal cancer (CMS/HCC) Expected: 12/16/2024, Expires: 12/16/2025 CEA Lab Routine Rectal cancer (CMS/HCC) Expected: 12/16/2024, Expires: 12/16/2025 CBC WITH DIFFERENTIAL Lab Stat Rectal cancer (CMS/HCC) Expected: 03/10/2025, Expires: 12/16/2025 CEA Lab Routine Rectal cancer (CMS/HCC) Expected: 03/10/2025, Expires: 12/16/2025 COMPREHENSIVE METABOLIC PANEL Lab Stat Rectal cancer (CMS/HCC) Expected: 03/10/2025, Expires: 12/16/2025 CT ABDOMEN PELVIS W CONTRAST Imaging Routine Rectal cancer (CMS/HCC) Expected: 03/15/2025, Expires: 12/16/2025 Scheduled Referrals Name Type Priority Associated Diagnoses Order Schedule AMB REFERRAL TO GASTROENTEROLOGY Outpatient Referral Routine Rectal cancer (CMS/HCC) Ordered: 12/16/2024 documented as of this encounter Visit Diagnoses Diagnosis Rectal cancer (CMS/HCC)- Primary Malignant neoplasm of rectum documented in this encounter
--- OUTSIDE RECORDS SUMMARY | 2024-12-16 15:25 | XMS_ITS | Data Portability ---
Author Organization [facility]ERT[facility] Jocelyn TODD Address [address] [place] [address] Assessment Encounter Date Assessment Date Assessment LastModified by Organization Details LastModified Time 07/24/2024 07/24/2024 Pt moved here from [place] in December 2023 and is in need of regular oncological followup, such as she was receiving in [place]. [email or web address] Not available 07/29/2024 07:10:49 08/25/2024 08/25/2024 Pt is stable. 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 [email or web address] Not available 08/26/2024 15:55:41 11/19/2024 11/19/2024 Louisa Ochoa is a 64 yr old female with a PMH of hypertension, prediabetes, and hx of malignant neoplasm of the rectum who presents today for a hospital followup. She went to the ER for chest pain on 10/31/25 for chest pain. Her workup was negative myocardial infarction. However, on 11/16/24, she had an episode of dizziness for 2 hours. On 11/18/24, she had white lines along her vision with a headache that followed. It was alleviated after she took a dose of aspirin and went to sleep. She also has experienced abdominal pain/fullness after eating. She has taken Miralax which gives her temporary relief from the pain, but it reoccurs after eating. [email or web address] Not available 11/19/2024 12:43:17 Plan of Treatment Reminders Order Date Submit Date Provider Last Modified By Organization Details Last Modified Time Details Appointments None record ed. Lab None record ed. Referral oncolo gist referr al - Histor y of rectum cancer , post surger y, unknow n pathol ogy, on remiss ion needs monito ring. 2023 024 chanel Devon Wood, [address] [place], [address], 4 17:29:01 neurol ogist referr al 2023 024 [facility], [address], [address], [place], [address], 5 10:48:12 oncolo gist referr al 2023 024 chanel Not available 10:05:39 Procedures None record ed. Surgeries None record ed. Imaging MAMMO, screen ing, digita l, bilate ral 2023 024 [facility], [address] [facility] [place], [address], 4 12:20:19 DEXA, axial skelet on 2023 024 [facility], [address] [facility] [place] [place], [address], 4 10:04:34 Medication Orders None record ed. Patient TargetsNo targets recorded. Patient Instructions Encounter Date Encounter Id Patient Instructions Last Modified By Organization Details Last Modified Time 06/13/2024 [id number] A healthy lifest yle: care instructions [email or web address] Not available 06/13/2024 10:25:09 sleep apnea: car e instructions [email or web address] Not available 06/13/2024 10:38:49 On the date of t his encounter, I saw and examined the patient, personally verifying the nolasco and critical findings in the resident s note. I reviewed and agree with the resident/fellow s findings and plan. ~MD Mike [email or web address] Not available 06/13/2024 10:14:52 07/24/2024 [id number] mammogram: about this test [email or web address] Not available 07/24/2024 12:37:00 bladder training : care instructions [email or web address] Not available 07/24/2024 12:35:05 kegel exercises: care instructions [email or web address] Not available 07/24/2024 12:35:05 Stress Incontine nce: Care Instructions [email or web address] Not available 07/24/2024 12:35:05 gastroesophageal reflux disease (GERD): care instructions [email or web address] Not available 07/24/2024 12:35:05 high blood press ure: care instructions [email or web address] Not available 07/24/2024 12:35:05 learning about h igh blood pressure [email or web address] Not available 07/24/2024 12:35:05 08/25/2024 [id number] advance care planning: care instructions [email or web address] Not available 08/25/2024 12:35:37 preventing falls : care instructions [email or web address] Not available 08/25/2024 12:35:37 Quitting Tobacco : Care Instructions [email or web address] Not available 08/25/2024 12:35:37 [facility] [email or web address] Not available 08/25/2024 12:35:37 eating healthy foods: care instructions [email or web address] Not available 08/25/2024 12:35:37 AD8 Dementia Screening Interview [email or web address] Not available 08/25/2024 12:35:37 11/19/2024 [id number] A healthy lifest yle: care instructions [email or web address] Not available 11/19/2024 12:58:57 Reason for Referral History of rectum cancer, po st surgery, unknown pathology, on remission needs monitoring. Referring Physician: Betty Cantu, [employer], Encounter Date: 06/13/2024 Referring Physician: Bryan johnson, Family Medicine, Encounter Date: 07/24/2024 Neurologist Referral for Fam maria luz history of dementia Referring Physician: Bryan Saenz, Family Medicine, Encounter Date: 07/24/2024 Results Created Date Observation Date Name Description Value Unit Range Abnormal Flag Note LastModifiedBy Organization Detail LastModifiedTime 08/07/20 24 07/30/2024 DEXA, axial skele ton No observ ation record ed. [address] [place], [address], 08/12/2024 11:30:54 08/14/2007/30/2024 MAMMO , pete jacobsen, digit al, bilat eral No observ ation record ed. [email or web address] [place], [address], 09/23/2024 12:12:49 Result Notes None recorded. Problems Name Problem SNOMED Code Status Onset Date Resolution Date Notes Provider Name and Address Organization Details Recorded Time Malignant tumor of rectum 754268397 Completed 202306/24/2024 BETTY CANTU MD Attn: Marga cuevas,[address] [place], [address], [place] [facility] 4 09:39:55 Osteoarthri tis 983167070 Active 2023 BETTY CANTU MD Attn: Marga cuevas,[address] [place], [address], [place] [facility] 4 10:29:36 Essential hypertensio n 67211008 Active 2023 BETTY CANTU MD Attn: Marga cuevas,[address] [place], [address], [place] [facility] 4 10:37:34 Prediabetes 283054213 Active 2023 BETTY CANTU MD Attn: Marga cuevas,[address] [place], [address], [place] [facility] 4 09:40:12 Obesity 578465774 Active 2023 BETTY CANTU MD Attn: Marga cuevas,[address] [place], [address], [place] [facility] 4 09:40:04 Postmenopau joe state 37900080 Active 2023 BETTY CANTU MD Attn: Marga cuevas,[address] [place], [address], [facility] - [facility] 4 09:40:07 Obstructive sleep apnea syndrome 25279105 Active 2023 BETTY CANTU MD Attn: Marga cuevas,[address] [facility], [place], [address], [facility] - [facility] 4 09:39:59 History of malignant neoplasm of rectum 168346763 Active 2023 BETTY CANTU MD Attn: Marga cuevas,[address] [facility], [place], [address], [facility] - [facility] 4 09:39:49 Problem Notes None recorded. Procedures Surgical History Date Name Laterality Status Provider Name and Address Organization Details Recorded Time screening for malignant neoplasm of rectum completed Debra Padgett MA [place] [facility] 06/13/2024 09:21:53 hysterectomy completed BETTY CANTU MD Attn: Accounting, [facility], [place], [address], [facility] - [facility] 06/13/2024 09:35:16 Imaging Results Imaging Date Name Status LastModified by Organiz ation Details LastModified Time 07/30/2024 DEXA, axial skeleton completed [address] [place], [address], 08/12/2024 11:30:54 07/30/2024 MAMMO, screening, digital, bilateral completed [address] [place], [address], 09/23/2024 12:12:49 Procedure Notes None recorded. Medical Equipment None Reported. Allergies Allergen ID Allergen Name Allergen Category Reaction Reaction Severity Criticality Documentation Date Start Date Code Code System Note Provider Name and Address Organization Details Recorded Time Product containin g penicilli n and antibioti c (product) medicatio n anaphylax is facial swelling rash Not available Not available Not available unabletoasse 06/13/2024 04839 05 SNOMED Not Available Not Available Not Available 985624 diphenhyd ramine medicatio n vomiting Not available unabletoasse 06/13/2024 3498 RxNorm Not Available Not Available Not Available 940061 domiphen Not available vomiting Not available [facility] 06/13/2024 17497 RxNorm Not Available Not Available Not Available 050289 pravastat in medicatio n Not available Not available [facility] 06/13/2024 34430 RxNorm Pt. doesn 't remem paul what react ion it is. Not Available Not Available Not Available Medications Name Sig Start Date Stop Date Status Note LastModified by Organization Details LastModified Time atorvastati n 40 mg tablet Take 1 tablet every day by oral route for 90 days. active Not Available Not Available No t Available acetaminoph en 325 mg tablet Take 2 tablets by mouth every 6 hours if needed for mild pain, moderate pain, headaches or fever. 06/13 completed Not Available Not Available Not Available atorvastati n 20 mg tablet TAKE ONE TABLET BY MOUTH ONE TIME DAILY AT NIGHT 06/13 completed Not Available Not Available Not Available atorvastati n 10 mg tablet 06/13 completed Not Available Not Available Not Available hydrocodone 5 mg-acetamin ophen 325 mg tablet TAKE 1-2 TABLETS BY MOUTH EVERY 4 HOURS NEEDED FOR PAIN 11/19 completed Not Available Not Available Not Available acetaminoph en 300 mg-codeine 30 mg tablet TAKE 1 TABLET BY MOUTH WITH FOOD EVERY 6 HOURS NEEDED FOR PAIN DIRECTED 06/13 completed Not Available Not Available Not Available ciprofloxac in 500 mg tablet TAKE 1 TABLET BY MOUTH TWICE DAILY X10 DAYS 06/13 completed Not Available Not Available Not Available aspirin 81 mg tablet,chandu yed release TAKE ONE TABLET BY MOUTH ONE TIME DAILY active Not Available Not Available No t Available amlodipine 10 mg tablet Take 1 tablet every day by oral route for 90 days. active Not Available Not Available No t Available pantoprazol e 40 mg tablet,chandu yed release Take 1 tablet every day by oral route for 90 days. active Not Available Not Available No t Available nitroglycer in 0.4 mg sublingual tablet active Not Available Not Available Not Available hydrochloro thiazide 25 mg tablet Take 1 tablet every day by oral route for 90 days. active Not Available Not Available No t Available oxybutynin chloride 5 mg tablet Take 1 tablet twice a day by oral route for 90 days. active Not Available Not Available No t Available lisinopril 40 mg tablet Take 1 tablet every day by oral route for 90 days. active Not Available Not Available No t Available cyclobenzap rine 5 mg tablet active Not Available Not Available Not Available docusate sodium active OTC Not Available Not Available Not Available famotidine active Not Available Not Av ailable Not Available hydrochloro thiazide 06/13 completed Not Available Not Available Not Available Calcium 500 + D active OTC Not Available Not Available Not Available GaviLyte-G 236 gram-22.74 gram-6.74 gram-5.86 gram oral solution Take by mouth as directed per the Bowel Prep Instructi ons Schedule. 06/13 completed Not Available Not Available Not Available ClearLax 17 gram/dose oral powder mix 17g with 8 oz. water, juice, soda, coffee or tea and take by mouth daily 06/13 completed Not Available Not Available Not Available polyethylen e glycol (bulk) 08/25 completed Not Available Not Available Not Available Vitals Date Recorded Body weight Body mass index (BMI) Body height Body temperature Respiratory rate Oxygen saturation Oxygen saturation in Arterial blood by Pulse oximetry Heart rate Systolic blood pressure Diastolic blood pressure Provider Name and Address Organization Details Last Updated DateTime 4 78870.3 3 g 30.8 kg/m2 171.45 cm 97.2 [degF] 18 /min 94 % 94 % 91 /min 151 mm[Hg] 84 mm[Hg] Debra Padgett MA [facility] 4 09:24:01 Date Recorded Systolic blood pressure Diastolic blood pressure Provider Name and Address Organization Details Last Updated DateTime 06/13/2024 143 mm[Hg] 81 mm[Hg] JOSUE Guerrero [facility] 06/13/2024 10:16:52 Date Recorded Body height Body mass index (BMI) Body weight Heart rate Respiratory rate Body temperature Systolic blood pressure Diastolic blood pressure Provider Name and Address Organization Details Last Updated DateTime 4 171.45 cm 31.1 kg/m2 13871.8 7 g 76 /min 18 /min 96.8 [degF] 126 mm[Hg] 81 mm[Hg] Jackie Khanna MA [facility] 4 12:30:32 Date Recorded Body height Body mass index (BMI) Body weight Oxygen saturation Oxygen saturation in Arterial blood by Pulse oximetry Heart rate Respiratory rate Body temperature Provider Name and Address Organization Details Last Updated DateTime 4 171.45 cm 31 kg/m2 73819.0 7 g 93 % 93 % 80 /min 16 /min 97.2 [degF] Jackie Khanna MA [facility] 4 11:43:00 Date Recorded Systolic blood pressure Diastolic blood pressure Provider Name and Address Organization Details Last Updated DateTime 08/25/2024 150 mm[Hg] 90 mm[Hg] Bryan Saenz MD Attn: Accounting,[address] [place], [address], [facility] 08/25/2024 12:37:09 Date Recorded Body height Body mass index (BMI) Body weight Oxygen saturation Oxygen saturation in Arterial blood by Pulse oximetry Heart rate Respiratory rate Body temperature Systolic blood pressure Diastolic blood pressure Provider Name and Address Organization Details Last Updated DateTime 5 171.45 cm 30.6 kg/m2 96562.7 4 g 97 % 97 % 88 /min 16 /min 97.8 [degF] 148 mm[Hg] 82 mm[Hg] Jackie Khanna MA [facility] 5 12:34:12 Social History Question Answer Notes LastModified by Organizat ion Details LastModified Time Tobacco Smoking Status Former Smoker Pt. quit in 2013 Jackie Khanna MA null, [facility] 07/24/2024 12:22:13 Do You Have An Advance Directive? No Information not available 07/24/2024 What Is Your Level Of Alcohol Consumption? None Information not available 06/13/2024 Are You Blind Or Do You Have Difficulty Seeing? Yes Cheaters To Read Information not available 07/24/2024 What Is Your Level Of Caffeine Consumption? Moderate Pt. Has A Cup Full Of Tea A Day, 1 Can Of Soda A Day. Information not available 07/24/2024 In The 14 Days Before Symptom Onset, Have You Had Close Contact With A Laboratory-confir [facility] COVID-19 While That Case Was Ill? No Information not available 07/24/2024 In The 14 Days Before Symptom Onset, Have You Had Close Contact With A Person Who Is Under Investigation For COVID-19 While That Person Was Ill? No Information not available 07/24/2024 Have You Been To An Area Known To Be High Risk For COVID-19? No Information not available 07/24/2024 Are You Currently Employed? No Retired Information not available 07/24/2024 Are You Deaf Or Do You Have Serious Difficulty Hearing? No Information not available 07/24/2024 What Type Of Diet Are You Following? REGULAR Information not available 07/24/2024 In The Past 7 Days, How Many Days Did You Exercise? 3 Simming For About 1 Hour. Information not available 08/25/2024 On The Days When You Exercised, How Long Did You Exercise Each Day (in Minutes)? 58 Information not available 08/25/2024 How Intense Was Your Typical Exercise? Moderate (brisk Walking) Information not available 08/25/2024 In The Past 7 Days, How Much Pain Have You Guymon? Some Information not available 08/25/2024 In General, Would You Say You Health Is: Fair Information not available 08/25/2024 How Would You Describe The Condition Of Your Mouth And Teeth- Including False Teeth Or Dentures? Good Information not available 08/25/2024 Has Anyone Ever Told You That You Snore? Yes Information not available 08/25/2024 In The Past 7 Days, How Often Have You Guymon Sleepy In The Daytime? Usually Information not available 08/25/2024 On They Days When You Drank Alcohol, How Often Did You Have 4 Or More Drinks At A Time? Never Information no t available 08/25/2024 # Alcohol Drinks Per Week 0 Information not available 08/25/2024 What Was The Date Of Your Most Recent Tobacco Screening? 11/19/2024 Information not available 11/19/2024 How Many Children Do You Have? 3 Information not available 07/24/2024 What Is Your Current Pack Years? 30ormorepack years Information not available 07/24/2024 What Is Your Relationship Status? Information not available 06/13/2024 Do You Use Your Seat Belt Or Car Seat Routinely? Yes Information not available 07/24/2024 Are You Sexually Active? No Information not available 06/13/2024 Do You Have Smoke And Carbon Monoxide Detectors In Your Home? Yes Information not available 06/13/2024 At What Age Did You Start Smoking Tobacco? 17 Information not available 07/24/2024 Are You Passively Exposed To Smoke? No Information no t available 06/13/2024 How Much Tobacco Do You Smoke? No Information not available 07/24/2024 Do You Feel Stressed (tense, Restless, Nervous, Or Anxious, Or Unable To Sleep At Night)? [id number] Information not available 07/24/2024 Do You Use Any Illicit Or Recreational Drugs? No Information not available 06/13/2024 Do You Use Sunscreen Routinely? No Information not available 07/24/2024 Has Tobacco Cessation Counseling Been Provided? No Information not available 07/24/2024 On What Date Was Tobacco Cessation Counseling Provided? 11/19/2024 Information not available 11/19/2024 How Many Years Have You Smoked Tobacco? 36 Information not available 07/24/2024 Do You Or Have You Ever Used Any Other Forms Of Tobacco Or Nicotine? No Information not available 06/13/2024 Sex: Female Functional Status Question Answer Note LastModified by Organizat ion Details LastModified Time Are you able to care for yourself? Yes Information not available 07/24/2024 What is your exercise level? Occasional Swimming 3 times a week Information not available 07/24/2024 Mental Status None recorded. Family History Relationship Description Onset Age of this Age Resolved Age Notes LastModified by Organization Details LastModified Time Mother Heart disease [email or web address] Not available 06/13 09:20:26 Mother Chronic obstructive pulmonary disease [email or web address] Not available 06/13 09:20:34 Mother Cerebrovascu lar accident erobbinsma Not available 12:11:47 Mother Coronary arterioscler osis erobbinsma Not available 07/24 12:11:58 Mother Hypertensive disorder erobbinsma Not available 07/24 12:13:00 Mother Hypercholest erolemia erobbinsma Not available 07/24 12:13:09 Mother Congestive heart failure erobbinsma Not available 07/24 12:14:12 Mother Migraine erobbinsma Not availab le 07/24/2024 12:18:23 Mother Malignant tumor of lung erobbinsma Not available 07/24 12:18:47 Father Liver cell carcinoma from this. [email or web address] Not available 07/24/2024 12:21:08 Father Coronary arterioscler osis erobbinsma Not available 07/24 12:11:58 Father Dementia erobbinsma Not availab le 07/24/2024 12:12:05 Father Hypertensive disorder erobbinsma Not available 07/24 12:13:00 Father Myocardial infarction erobbinsma Not available 07/06 12:13:34 Father Open heart surgery trippl e bypass erobbinsma Not available 07/24/2024 12:13:58 Father Migraine erobbinsma Not availab le 07/24/2024 12:18:23 Son Attention deficit hyperactivit y disorder erobbinsma Not available 07/06 12:11:29 Notes:No new reported , 11/19/24 Medical History Condition Response Coronary Artery Disease N Other N Atrial Fibrillation N High Blood Pressure Y Depression N COPD N Blood Clots N Anxiety Disorder N Muscle, Joint, or Bone Problems N Arthritis Y Acid Reflux (GERD) Y Cancer Y Stroke N ADHD N High Cholesterol Y Liver Disease N Schizophrenia N Headaches N Thyroid Problems N Kidney or Bladder Problems N GI Problems Y Have you had a mammogram in the last yea r? N Eating Disorder N Skin Problems N Anemia N Heart Attack (NH) N Diabetes N Seizures/Epilepsy N Have you had a colonoscopy in the last 1 0 years? N Asthma N Allergies Y Have you had a PSA blood test in the las t year? N Substance Abuse N Hepatitis N Heart Failure N Osteoporosis N Gynecological History Statement/Question Response Date of LMP LMP Definite Obstetrics History GPAL:G 5 P 3 0 2 3 Type Value Multiple Births 0 Full Term 3 Induced 2 Spontaneous 0 Premature 0 Living 3 Ectopics 0 Total 5 Immunizations Vaccine Type Date Status Note Provider Nam e and Address Organization Details Recorded Time COVID-19, mRNA, LNP-S, PF, 100 mcg/0.5mL dose or 50 mcg/0.25mL dose 02/15/2021 completed BILLY [place], [place] [facility] 07/24/2024 12:35:47 COVID-19, mRNA, LNP-S, bivalent, PF, 10 mcg/0.2 mL 03/25/2021 [place]Y [place] [facility] 07/24/2024 12:35:40 COVID-19, mRNA, LNP-S, bivalent, PF, 10 mcg/0.2 mL 10/08/2021 [place]Y [place] [facility] 07/24/2024 12:36:32 COVID-19, mRNA, LNP-S, PF, 100 mcg/0.5mL dose or 50 mcg/0.25mL dose 06/09/2022 [place]Y [place] [facility] 07/24/2024 12:38:26 COVID-19, mRNA, LNP-S, bivalent, PF, 10 mcg/0.2 mL 09/15/2022 [place] [facility] 07/24/2024 12:39:05 zoster, unspecified formulation 12/06/2018 [place] [facility] 07/24/2024 12:40:22 zoster, unspecified formulation 05/06/2019 [place] [facility] 07/24/2024 12:40:56 Hep A, adult 08/07/2017 completed Jackie Khanna MA erna, [place] - [facility] 07/24/2024 12:41:37 Influenza, high-dose, trivalent, PF 07/24/2024 completed Jackie Khanna MA erna, [facility] - [facility] 07/24/2024 13:23:11 Past Encounters Encounter ID Performer Location Encounter Start Date Encounter Closed Date Diagnosis/Indication Diagnosis SNOMED-CT Code Diagnosis ICD10 Code Diagnosis Note [id number] MD Navin Patino 14 IM 4 [facility] [place] [address] 06/13/2024 08:53:15 06/25/2024 15:42:41 Obesity 089515035 E66.8 -Recommend continued lifestyle modificati ons & exercise >150mins/w k- Recommend adding fresh fruits and vegetables and avoiding sugary drinks. Adult heal th examination 398216910 Z00.00 -Patient doing well overall.-M ove to [place] in December 2023 from [place] .-Discusse d preventive measure: ordering DEXA scan and Mammograph y today.-Rec ommended pneumococc al vaccine, waiting for immunizati on records. Screening mammography 24 793312 Z12.31 -Will contact patient once results are received. Osteoarthritis 771190401 M19.90 Postmenopausal state 764 [address]808 Z78.0 -Will contact patient once results are received. Essential hypertension 35920790 I10 -BP: 151/84 Repeat: 143/81-Con tinue current medication s as prescribed .-Follow up at next visit. Prediabetes 326159675 R7 3.03 -A1C two weeks ago was 6.2 at previous PCP office. Obstructiv e sleep apnea syndrome 13248642 G47.33 -Pt desires a re measure on CPAP, not using current CPAP machine.-D iagnosed more than a year ago.-Relea se records signed, waiting on documentat ion. History of malignant neoplasm of rectum 677269441 Z85.048 -Referral to oncology for monitor of disease.-P revious patient of Dr. Sol, [place] no longer in network with new insurance. [id number] MD Navin Jiang 14 IM 4 [facility] [place] [address] 07/24/2024 11:43:30 07/29/2024 11:12:12 Benign essential hypertension 4504028 I10 Female str ess incontinence 40832465 N39.3 Gastroesop hageal reflux disease 603199031 K21.9 History of malignant neoplasm of rectum 022229687 Z85.048 surgery was in ; pt moved here in Screening mammography 24 276741 Z12.31 scheduled Influenza immunization advised 776297781 Z71.85 Family his tory of dementia 890667070 Z81.8 [id number] MD Navin Jiang 14 IM [address] [facility] [place] [address] 08/25/2024 11:32:38 09/03/2024 10:06:39 Adult health examination 728890496 Z00.00 Health Risk Assessment collected and reviewed [id number] MD Navin Jiang 14 IM [address] [facility] [place] [address] 11/19/2024 12:14:21 11/25/2024 14:58:51 Obesity 515761980 E66.9 BMI=30.6 Atypical chest pain 1025 [address]3441 R07.89 now resolved; recent ER workup was negative for a cardiac source History of malignant neoplasm of rectum 868427685 Z85.048 pt has an upcoming appt with the specialist in [facility] Concerns Section Related Observation LastModified by Organization Detai ls LastModified Time None Recorded Concern Status LastModified by Organization Details LastModified Time None Recorded Advance Directives Directive N: Payers Encounter Date Sequence Insurance Name Policy Number Policy Sears Covered Member ID Sears Member ID Guarantor Name 06/13/2024 1 SCIP[employer] Farseer (MEDICARE REPLACEMENT/A DVANTAGE - HMO) [id number] Louisa Ochoa [id number] Louisa Ochoa 07/24/2024 1 [employer] Farseer (MEDICARE REPLACEMENT/A DVANTAGE - HMO) [id number] Louisa Ochoa [id number] Louisa Ochoa 08/25/2024 1 [facility] (MEDICARE REPLACEMENT/A DVANTAGE - HMO) [id number] Louisa Ochoa [id number] Louisa Ochoa 11/19/2024 1 [employer] (MEDICARE REPLACEMENT/A DVANTAGE - HMO) [id number] Louisa Ochoa [id number] Louisa Ochoa Notes Date Note Type Note Provider Name and Address Organization Details Recorded Time 06/13/2024 text/html Lindy is a 63 yea r old female with a PMH of orthoritis, rectal cancer, HTN, pre diabetes, overactive baldder, SHAILESH . She is new to my care and presents to the office to establish care.---Reports the following concerns:1. History of rectal cancerPatient reports previous surgery for rectal cancer.Previous patient of Dr. Sol, no longer in network.Would like a referral to establish care with a new oncologist for monitor of disease.---She is and feels safe at home.Patient is retired.Good appetite and eats a well balanced diet.Daily non painful bowel movements, good urine output.Denies menopausal symptoms.Not physically activity.Sleep well trough the night, with heavy snoring and pauses in breathing.Would like to establish care with dentist and electronic assembler group leader.Denies alcohol intake, smoking or recreational drugs.Denies anxiety or depression symptoms. Has good support if needed. Guerita Long MD Attn: Accounting[address] [place], [address], [facility] 06/24/2024 18:48:08 07/24/2024 text/html Pt is transferri ng to this PCP. Bryan Saenz MD Attn: Accounting[address] [place], [address], [facility] 07/29/2024 07:15:12 08/25/2024 text/html Followup to last visit. Bryan Saenz MD Attn: Accounting[address] [place], [address], [facility] 08/26/2024 15:56:38 11/19/2024 text/html Louisa Ochoa is a 64 yr old female with a PMH of hypertension, prediabetes, and hx of malignant neoplasm of the rectum who presents today for a hospital followup. She went to the ER for chest pain on 10/31/25 for chest pain. Her workup was negative for myocardial infarction. However, on 11/16/24, she had an episode of dizziness for 2 hours. On 11/18/24, she had white lines along her vision with a headache that followed. It was alleviated after she took a dose of aspirin and went to sleep. She also has experienced abdominal pain/fullness after eating. She has taken Miralax which gives her temporary relief from the pain, but it reoccurs after eating. Bryan Saenz MD Attn: Accounting[address] [place], [address], [facility] 11/21/2024 16:52:17 OBGyn Episode No OBEpisode recorded.
--- OUTSIDE RECORDS SUMMARY | 2024-12-16 15:25 | XMS_ITS | Data Portability ---
Author Organization [facility] Address [address] [place] [address] Care Team Providers Care Granulator Machine Operator Name Role Phone [facility] Referring Provider Assessment Encounter Date Assessment Date Assessment LastModified by Organization Details LastModified Time 10/08/2023 10/08/2023 Clinical exam consistent with bilateral bunion deformities. I have discussed both nonsurgical and surgical treatment options with the patient. I have discussed the risks and benefits of each treatment option. I have discussed chevron bunionectomy, lapidus bunionectomy or 1st MTPJ fusion. The chevron bunionectomy may result in over 30% recurrence, while allowing for a faster recovery and quicker return to shoes, also a small surgical scar. The lapidus bunionectomy is becoming the gold standard treatment as it minimizes recurrence, though still likely, but to be reported under 10%. The recovery process is lengthy involving a NWB period. This procedure may not be well tolerated by elederly patients due to the length, pain, and surgical scar. The 1st MTPJ fusion allows for an interdiatery procedure allowing minimal recurrence also a relatively quick return to shoes and activigies. The downside if the toe will no longer be flexible, and patients typically cannot tolerate heels. The alternative is nonsurgical management with supportive shoegear and OTC orthosis. Handout given. 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 May return for steroid injection as indicated for symptomatic relief. [email or web address] Not available 10/08/2023 15:08:32 Plan of Treatment Reminders Order Date Submit Date Provider Last Modified By Organization Details Last Modified Time Details Appointments None record ed. Lab None record ed. Referral None record ed. Procedures None record ed. Surgeries None record ed. Imaging None record ed. Medication Orders None record ed. Patient TargetsNo targets recorded. Patient InstructionsNo instructions recorded. Reason for Referral None Reported. Medical Equipment None Reported. Vitals None Recorded Social History None recorded. Functional Status None recorded. Mental Status None recorded. Family History Nothing Reported. Medical History No medical history recorded. Gynecological HistoryNo gynecological history recorded. Obstetrics History GPAL:G 0 P 0 0 0 0 Past Encounters Encounter ID Performer Location Encounter Start Date Encounter Closed Date Diagnosis/Indication Diagnosis SNOMED-CT Code Diagnosis ICD10 Code Diagnosis Note [id number] KALPANA HA DPM [address] [address] 10/08/2023 14:07:07 10/08/2023 16:02:24 Acquired right hallux valgus 6338192298 47077 M20.11 Acquired l eft hallux valgus 2647800700 55249 M20.12 Pain in right foot 26015 07223 26013 M79.671 Pain in left foot 827479 2658 88092 M79.672 Health Concerns Section Related Observation LastModified by Organization Detai ls LastModified Time None Recorded Concern Status LastModified by Organization Details LastModified Time None Recorded Advance Directives Directive None Recorded Payers Encounter Date Sequence Insurance Name Policy Number Policy Sears Covered Member ID Sears Member ID Guarantor Name 10/08/2023 1 MEDICARE B-AK: [facility] [id number] Louisa Ochoa [id number] Louisa Ochoa 10/08/2023 2 [facility] (MEDICAID REPLACEMENT HMO) [id number] Louisa Ochoa [id number] Louisa Ochoa Notes Date Note Type Note Provider Name and Address Organization Details Recorded Time 10/08/2023 text/html Patient presents today with complaint of painful bunion deformity. States that the feet are painful in shoes and with ambulation. She has tried shoe gear modification to wider shoes with no relief. The pain has been ongoing for some time now with no relief noted. Worse on the right foot. Symptoms are still tolerable.Denies other pedal complaints.Denies recent falls. KALPANA HA DPM [address] ,[address], [place], [address], [facility] 10/08/2023 15:08:58 OBGyn Episode No OBEpisode recorded.
[2024-12-16 16:39] LABS: Alanine Aminotransferase 16 U/L (6-35); Albumin Level 4.1 g/dL (3.5-5.1); Alkaline Phosphatase 114 U/L (38-126); Anion Gap 9 mmol/L (4-12); Aspartate Amino Transferase 29 U/L (14-36); Bilirubin,Total 0.8 mg/dL (0.2-1.3); Blood Urea Nitrogen 13 mg/dL (7-17); Calcium 10.1 mg/dL (8.4-10.2); Carbon Dioxide 26 mmol/L (22-30); Chloride 104 mmol/L (98-107); Estimated Glomerular Filt Rate > 60; Glucose 85 mg/dL (65-110); Potassium 3.6 mmol/L (3.4-5.0); Sodium 139 mmol/L (137-145)
[2024-12-16 17:08] LABS: Carcinoembryonic Antigen 2.5 ng/mL (0.0-3.0)
== END 2024-12-16 14:38 | disposition home or self-care (01) ==
PROVIDERS: PCP Family Medicine; Visit Provider Internal Medicine Hematology & Oncology
DX: C20 Malignant neoplasm of rectum (principal)
CPT/HCPCS: 36415; 80053; 82378; 85025

== ENCOUNTER 2025-03-12 00:40 | Day surgery (SDC) | payer MEDICARE, MEDICAID, SELFPAY ==
[2025-02-25 13:49] VITALS: BMI 29.7
--- OUTSIDE RECORDS SUMMARY | 2025-03-12 00:44 | XMS_ITS | Data Portability ---
Author Organization [place] [facility] Address [address] [place] [address] Care Team Providers Care Art Museum Aide Name Role Phone MARIANNE ANABEL Referring Provider [phone] Assessment Encounter Date Assessment Date Assessment LastModified by Organization Details LastModified Time 05/28/2023 05/28/2023 Wrist splints at night time only x 6 weeks PT for neck pain/paresthe [email or web address] RTC 2mo --- reassess, consider emg/ncs at that time. [email or web address] Not available 05/28/2023 17:24:07 07/31/2023 07/31/2023 Continue Wrist splints at night PT for neck pain/tension RTC 3mo [email or web address] Not available 07/31/2023 15:18:49 10/25/2023 10/25/2023 Continue Wrist splints at night RTC PRN new or worsening symptoms Not available 10/25/2023 13:14:45 Plan of Treatment Reminders Order Date Submit Date Provider Last Modified By Organization Details Last Modified Time Details Appointments None recorded. Lab None recorded. Referral physical therapist referral 2022 023 [email or web address], [address] [place], [address], 13:17:08 Procedures None recorded. Surgeries None recorded. Imaging None recorded. Medication Orders None recorded. Patient TargetsNo targets recorded. Patient Instructions Encounter Date Encounter Id Patient Instructions Last Modified By Organization Details Last Modified Time 05/28/[id number] Yumiko Pugh . I provided direction and supervision to CIAIO COUNTER MOLDER at time of the visit. I developed [...] Details Recorded Time Paresthesia of upper limb 82055231 Active 2022 [place] [address] [address], [address], [place], [address] , [facility] 17:16:08 Neck pain 80241713 Active 2022 [place] [address] [address], [address], [place], [address] , [facility] 17:22:29 Problem Notes None recorded. Procedures Surgical History Date Name Laterality Status Provider Name and Address Organization Details Recorded Time Hysterectomy completed Elvin Roman [place] - [facility] 05/28/2023 16:28:42 Imaging [...] Address Organization Details Last Updated DateTime 05/28/2023 19938.47 g 88 /min 138 mm[Hg] 83 mm[Hg] [...] Address Organization Details Last Updated DateTime 3 98856.4 7 g 31.3 kg/m2 170.18 cm 74 [...] Occupation Unemployed Social Security For Medical Reasons Information not available 05/28/2023 Sex: Unknown Functional [...] High Blood Pressure Y Atrial Fibrillation N No previous medical history N Head Trauma/Injury N Migraines N Thyroid Problems N Depression N Brain Tumors N Anemia N Multiple Sclerosis N Ulcers N Brain Aneurysm N Anxiety Disorder N Diabetes N Bleeding Disorder N Syncope N Stroke N Seizures N Sleep Apnea N High Cholesterol Y Heart Disease N Respiratory Problems N Kidney Disease N Gynecological HistoryNo gynecological history recorded. Obstetrics History GPAL:G 0 P 0 0 0 0 Past Encounters Encounter ID Performer Location Encounter Start Date Encounter Closed Date Diagnosis/Indication Diagnosis SNOMED-CT Code Diagnosis ICD10 Code Diagnosis Note [id number] [place] [address] 05/28/2023 16:07:24 05/28/2023 17:25:05 Paresthesia of upper limb 06505028 R20.2 Neck pain 84064048 M54.[id number] [place] [address] 07/31/2023 14:29:07 08/01/2023 01:14:03 Neck pain 49893887 M54.2 Paresthesi a of upper limb 17007333 R20.2 IMPROVED [id number] Marilyn Mcgee NP [address] [place] [address] 10/25/2023 12:30:01 10/25/2023 13:14:41 Paresthesia of upper limb 21165329 R20.2 resolved with wrist splinting Neck pain 24997178 M54.2 resolved Health Concerns Section Related Observation LastModified by Organization Detai ls LastModified Time None Recorded Concern Status LastModified by Organization Details LastModified Time None Recorded Advance Directives Directive None Recorded Payers Encounter Date Sequence Insurance Name Policy Number Policy Sears Covered Member ID Sears Member ID Guarantor Name 05/28/2023 2 [facility] (MEDICAID REPLACEMENT HMO) Louisa Ochoa [id number] Louisa Ochoa 07/31/2023 2 [facility] (MEDICAID REPLACEMENT HMO) Louisa Ochoa [id number] Louisa Ochoa 10/25/2023 2 [facility] (MEDICAID REPLACEMENT HMO) Louisa Ochoa [id number] Louisa Ochoa 10/25/2023 1 MEDICARE B-[place]: [facility] Louisa Ochoa [id number] Louisa Ochoa Notes Date Note Type Note [...] hands[place] [address], [address], [place], [address], [facility] 06/08/2023 15:25:20 07/31/2023 [...] handsNo [place] [address], [address], [place], [address], [place] [facility] 07/31/2023 15:19:28 10/25/2023 text/html 62 yo female follow up for numbness in bilateral hands. Symptoms improved. Wearing wrist splints at night with relief, reports no longer experiencing numbness unless she forgets to wear the splint.Asymptomati c during the day.Denies neck pain/tensionNo focal weakness.No pain in wrists or handsNo [place] [address] [address], [address], [place], [address], [place] [facility] 10/25/2023 13:15:09 OBGyn Episode No OBEpisode recorded.
--- OUTSIDE RECORDS SUMMARY | 2025-03-12 00:44 | XMS_ITS | Clinical Summary ---
Author Organization [facility] Address [address] [place] [address] Care Team Providers Care Tourist Agent Name Role Phone Bryan Saenz MD Primary Care Provider [phone] Allergies Active Allergy Reactions Criticality Noted Date [...] PAIN 50 tablet 5 04/27/20 24 Active polyethylene glycol (MIRALAX) 17 gram packetIndications:consti pation Take 1 packet (17 g total) by mouth 2 (two) times a day Active HYDROcodone-acetaminophe n (NORCO) 5-325 mg per tabletIndications:Pain Take 1 tablet by mouth every 6 (six) hours as needed for pain for up to 10 doses 10 tablet 12/24/19 25 Active Active Problems Problem Noted Date Diagnosed [...] above The 10-year ASCVD risk score (Estela DK, et al., 2019) is: 6.8% Values used [...] found for: HGBA1C Adenocarcinoma of rectosigmoid junction 03/03/20 Assessment & Plan (06/02/2024 11:29 AM CDT): - history of T2 N0 rectal cancer status post robotic TAMIS on 12/20/2022 - was following with Oncology in [place] and was under surveillance - has hx [...] 12/20/2022 - was following with Oncology in [place] and was under surveillance - has hx [...] of cdif and vit B12 deficiency with residential use of PPI. - continue current management [...] of cdif and vit B12 deficiency with residential use of PPI. - recheck labs, orders [...] prior location where she had mammogram in [place] so we can request an obtain records History of rectal cancer 12/23/2023 Resolved Problems Problem Noted Date Diagnosed Date Resolved Date Urinary tract infection in female 12/23/2023 03/03/2024 Encounters Date Type Department Care Team Description 12/24/2024 6:57 AM REFINERY OPERATOR VISBREAKING - 12/24/2024 8:22 AM [facility] Emergency [facility] Emergency Department [address] [place] [address] Tracy Mohamud MD Chest wall muscle strain, initial encounter (Primary Dx) Discharge Disposition: Discharge to home or self care from Last 3 Months Immunizations Immunization Administration Dates Next Due H1N1 Inj 11/02/2009 [...] History Medical History Date Comments Rectosigmoid cancer (HCC) Family History Medical History Relation Name Comments Breast cancer Paternal Grandmother Relation Name Status Comments Paternal Grandmother Social History Tobacco Use Types Packs/Day Years Used Date Smoking Tobacco: Former Cigarettes 0.1 36 S tarted: 1979 Tobacco Cessation:Counseling Given: Not Answered [facility] Answer Date Recorded In the past 12 months has th e electric, gas, oil, or water company threatened to [...] week 11/03/2024 How often do you attend [facility] or taoism services? More than 4 times per year 11/03/2024 Do you belong to any clubs o r organizations such as buddhist groups, unions, fraternal or athletic groups, or [...] any time in the past 12 m [facility], were you homeless or living in a [facility] (including now)? No 11/03/2024 Personal Safety Answer Date Recorded Have you ever been in or are you currently in a harmful physical or emotional relationship or is someone making you feel afraid or unsafe? Denies 12/24/2024 Education Answer Date Recorded What is the [...] Sign Reading Time Taken Comments Blood Pressure 170/94 12/24/2024 8:00 AM REFINERY OPERATOR VISBREAKING Pulse 80 12/24/2024 7:35 AM REFINERY OPERATOR VISBREAKING Temperature 36.6 C (97.8 F) 12/24/2024 6:56 AM REFINERY OPERATOR VISBREAKING Respiratory Rate 16 12/24/2024 7:35 AM REFINERY OPERATOR VISBREAKING Oxygen Saturation 98% 12/24/2024 7:35 AM REFINERY OPERATOR VISBREAKING Inhaled Oxygen Concentration - - Weight 90.7 kg (200 lb) 12/24/2024 6:56 AM REFINERY OPERATOR VISBREAKING Height 171.5 cm (5' 7.5 ) 10/31/2024 10:55 PM CS T Body Mass Index 30.86 10/31/2024 10:55 PM REFINERY OPERATOR VISBREAKING Plan of Treatment Health Maintenance Due Date Last Done Comments Pneumococcal vaccine 65+ (1 of 1 - PCV) 2008 Zoster Vaccine (1 of 2) 2008 05/06/2019, 12/06 Well Visit 65+ 2023 Covid-19 Vaccine (4 - 2023-2 5 season) 2024 09/15/2022, 09/15/2022, 06/09/2022, Additional history exists Depression Screening 06/02/2025 06/02/2024, 03/03/20 24 Breast Cancer Screening-Mammogram 07/30/2025 024, 03/19/2023 Fall Risk Assessment 11/03/2025 11/03/2024, 06/02/2024, 03/03/2024 Osteoporosis Screening-Bone Density Scan 07/30/2026 07/30/2024 DTaP/Tdap/Td Vaccine (4 - Td or Tdap) 07/02/2027 07/02/2017, 09/08/2009, 09/08/2009 Colon Cancer Screening-Sigmoidoscopy 10/11/2028 10/11/2023 Hepatitis B Screening Completed 03/03/2024 Hepatitis C Screening Completed 03/03/2024 Influenza Vaccine Completed 07/24/2024, , 06/24/2021, Additional history exists Procedures Procedure Name Priority Date/Time Associated Diagnosis Comments XR RIBS LEFT W PA CHEST ED 12/24/2024 7:43 AM REFINERY OPERATOR VISBREAKING DEXA AXIAL SKELETON BONE DENSITY 1 OR [...] Recently Relevant to Health Maintenance Results * XR Ribs Left W PA Chest 3 or More Views (12/24/2024 7:43 AM REFINERY OPERATOR VISBREAKING) Anatomical Region Laterality Modality Rib, Chest Left Computed Radiogr aphy 12/24/2024 7:52 AM REFINERY OPERATOR VISBREAKING Narrative 12/24/2024 7:56 AM REFINERY OPERATOR VISBREAKING EXAM DESCRIPTION: XR RIBS LEFT W PA CHEST 3 OR MORE VIEWS REASON FOR STUDY: pain Per Pt she flopped on the couch 2 days ago. Pt reports her elbow hit her left side of her ribs. Pt reports since then she has had pain to her left side ribs. TECHNIQUE: 2 radiographic view(s) of the left ribs with single view of the chest. COMPARISON: 10/31/2024 FINDINGS: LUNGS: No focal opacity, pleural effusion, or pneumothorax. HEART/MEDIASTINUM: Cardiac silhouette normal in size. Mediastinal and hilar contours appear normal. LINES/TUBES: None. BONES: There is no acute fracture, malalignment or osseous abnormality. No displaced left rib fracture identified. IMPRESSION: No displaced left rib fracture identified. No acute cardiopulmonary findings. THIS IS AN ELECTRONICALLY VERIFIED FINAL REPORT 12/24/2024 7:56 AM - Electronically signed by Bill Whiting M.D. KR: SOLANGE Report ID: [id number] Reading Location: [id number] Procedure Note Bill Whiting MD - 12/24/2024 EXAM DESCRIPTION: XR RIBS LEFT W PA CHEST 3 OR MORE VIEWS REASON FOR STUDY: pain Per Pt she flopped on the couch 2 days ago. Pt reports her elbow hit her left side of her ribs. Pt reports since then she has had pain to her leftside ribs. TECHNIQUE: 2 radiographic view(s) of the left ribs with single viewof the chest. COMPARISON: 10/31/2024 FINDINGS: LUNGS: No focal opacity, pleural effusion, or pneumothorax. HEART/MEDIASTINUM: Cardiac silhouette normal in size. Mediastinal andhilar contours appear normal. LINES/TUBES: None. BONES: There is no acute fracture, malalignment or osseous abnormality.No displaced left rib fracture identified. IMPRESSION: No displaced left rib fracture identified. No acute cardiopulmonary findings. THIS IS AN ELECTRONICALLY VERIFIED FINAL REPORT 12/24/2024 7:56 AM - Electronically signed by Bill Whiting M.D. KR: SOLANGE Report ID: [id number] Reading Location: [place] [address] Tracy Mohamud MD IMG XR PROCEDURES Final R esult * Dexa Axial Skeleton Bone Density 1 or 2 Site (07/30/2024 10:21 AM CDT) Anatomical Region Laterality Modality Body N/A Other 07/30/2024 6:14 PM CDT Narrative 07/30/2024 6:17 PM CDT EXAM DESCRIPTION: DEXA AXIAL SKELETON BONE DENSITY 1 OR MORE SITES REASON FOR STUDY: 63 y/o year old F with given history of: Postmenopausal state Screening. Pta/Model: [employer] (S/N [id number]) CLINICAL INFORMATION: Current height: 67 inches Maximum [...] David England M.D. MF: RICH Report ID: [id number] Reading Location: [id number] Procedure Note David England MD - 07/30/2024 EXAM DESCRIPTION: DEXA AXIAL SKELETON BONE DENSITY 1 OR MORE SITES REASON FOR STUDY: 63 y/o year old F with given history of:Postmenopausal state Screening. Pta/Model: [employer] (S/N [id number]) CLINICAL INFORMATION: Current height: 67 inches Maximum [...] David England M.D. MF: RICH Report ID: [id number] Reading Location: [place] [address] [facility] Brandan Juarez MD IM DXA PROCEDURES F [...] last revised on 2020. Testing performed by: [facility], [address] [place] [address], [place]., [address] Blood 03/03/2024 10:1 0 AM CDT 03/03/2024 11:32 AM CDT us Kurt Talavera MD LAB MICROBIOLOGY - [facility] ORDERABLES Final Result JEMAL KEANE UTICA) [address] [facility] Department [place] [address] from Last 3 Months or Most Recently Relevant to Health Maintenance Insurance [facility] [place] [facility] [place] Advance Directives For more information, please contact: [phone] * Full Code (Latest Code Status on File) Date Activated Date Inactivated Comments 10/31/2024 8:31 PM 11/03/2024 6:36 PM Care Teams Tourist Agent Relationship Specialty Start Date End Date Bryan Saenz MD [address] [place] [address] [address] PCP - General Family Medicine 09/09/24
--- OUTSIDE RECORDS SUMMARY | 2025-03-12 00:44 | XMS_ITS | Referral Summary ---
Author Organization [facility] Address [address] [place] [address] Care Team Providers Care Lighting Fixture Installer Name Role Phone Bryan Saenz MD Primary Care Provider [phone] Encounters Date Type Department Care Team Description 12/24/2024 6:57 AM MACHINE OPERATOR HAY STACKER - 12/24/2024 8:22 AM MACHINE OPERATOR HAY STACKER Emergency [facility] Emergency Department [address] [place] [address] Tracy Mohamud MD Chest wall muscle strain, [...] of cdif and vit B12 deficiency with termination clerk use of PPI. - continue current management [...] of cdif and vit B12 deficiency with alf use of PPI. - recheck labs, orders [...] tract infection in female 12/23/2023 03/03/2024 Immunizations Immunization Administration Dates Next Due H1N1 [...] Tobacco Cessation:Counseling Given: Not Answered [facility] Utilities Answer Date Recorded In the past 12 months has [employer], gas, oil, or water company threatened to [...] often do you attend chur ch or jew services? More than 4 times per year 11/03/2024 Do you belong to any clubs o r organizations such as religious groups, unions, fraternal or athletic groups, or [...] any time in the past 12 m [facility], were you homeless or living in a usp (including now)? No 11/03/2024 Personal Safety Answer [...] Comments Blood Pressure 170/94 12/24/2024 8:00 AM MACHINE OPERATOR HAY STACKER Pulse 80 12/24/2024 7:35 AM MACHINE OPERATOR HAY STACKER Temperature 36.6 C (97.8 F) 12/24/2024 6:56 AM MACHINE OPERATOR HAY STACKER Respiratory Rate 16 12/24/2024 7:35 AM MACHINE OPERATOR HAY STACKER Oxygen Saturation 98% 12/24/2024 7:35 AM MACHINE OPERATOR HAY STACKER Inhaled Oxygen Concentration - - Weight 90.7 kg (200 lb) 12/24/2024 6:56 AM MACHINE OPERATOR HAY STACKER Height 171.5 cm (5' 7.5 ) 10/31/2024 10:55 PM CS T Body Mass Index 30.86 10/31/2024 10:55 PM MACHINE OPERATOR HAY STACKER Plan of Treatment Not on file Procedures Procedure Name Priority Date/Time Associated Diagnosis Comments XR RIBS LEFT W PA CHEST ED 12/24/2024 7:43 AM MACHINE OPERATOR HAY STACKER DEXA AXIAL SKELETON BONE DENSITY 1 OR [...] 3 or More Views (12/24/2024 7:43 AM MACHINE OPERATOR HAY STACKER) Anatomical Region Laterality Modality Rib, Chest Left Computed Radiogr aphy 12/24/2024 7:52 AM MACHINE OPERATOR HAY STACKER Narrative 12/24/2024 7:56 AM MACHINE OPERATOR HAY STACKER EXAM DESCRIPTION: XR RIBS LEFT W PA [...] Bill Whiting M.D. KR: SOLANGE Report ID: [id number] Reading Location: [id number] Procedure Note Bill Whiting MD - 12/24/2024 [...] Bill Whiting M.D. KR: SOLANGE Report ID: [id number] Reading Location: [place] [address] Tracy Mohamud MD IMG XR PROCEDURES Final [...] with given history of: Postmenopausal state Screening. Churner/Model: Sibaritus (S/N [id number]) CLINICAL INFORMATION: Current height: 67 inches Maximum [...] David England M.D. MF: RICH Report ID: [id number] Reading Location: [place] [address] Procedure Note David England MD - 07/30/2024 EXAM DESCRIPTION: DEXA AXIAL SKELETON BONE DENSITY 1 OR MORE SITES REASON FOR STUDY: 63 y/o year old F with given history of:Postmenopausal state Screening. Churner/Model: Edtrips Discovery SL (S/N [id number]) CLINICAL INFORMATION: Current height: 67 inches Maximum [...] David England M.D. MF: RICH Report ID: [id number] Reading Location: [place] [address] Betty Juarez MD [facility] DXA PROCEDURES F inal Result * Screening [...] the axillae or elsewhere. Betty Juarez MD [facility] MAMMO PROCEDURES Final Result * Hepatitis C [...] last revised on 2020. Testing performed by: [facility], [address] [place] [address]., [id number] Blood 03/03/2024 10:1 0 AM CDT 03/03/2024 11:32 AM CDT Kurt Talavera MD LAB MICROBIOLOGY - GENE RAL ORDERABLES Final Result [facility]) 1 [facility] [place] [address] from Last 3 Months or Most Recently Relevant to Health Maintenance Insurance [employer] [place] [address] [facility] [place] [facility] [place] Advance Directives For more information, please contact: [phone] * Full Code (Latest Code Status on File) Date Activated Date Inactivated Comments 10/31/2024 8:31 PM 11/03/2024 6:36 PM Care Teams Lighting Fixture Installer Relationship Specialty Start Date End Date Bryan Saenz MD [address] [place] [address] [address] PCP - General Family Medicine 09/09/24
--- OUTSIDE RECORDS SUMMARY | 2025-03-12 00:44 | XMS_ITS | Data Portability ---
Author Organization MD Brandie BARRETT [facility], [place] Address [address] [facility] [address] [place] [address] Assessment No assessment recorded. Plan of Treatment [...] By Organization Details Last Modified Time 10/20/2024 [id number] Continue all medications as prescribed Follow-up with PCP as scheduled [email or web address] Not available 10/21/2024 08:13:33 11/12/2024 [id number] Continue all medications as prescribed Follow-up with PCP and consulting specialists as scheduled Continue sigmoidoscopy every 3 months [email or web address] Not available 11/18/2024 20:55:16 Reason for Referral [...] Updated DateTime 10/20/2024 170.18 cm 31.6 kg/m2 74805.66 g PATRICIA CORONADO, PUBLIC SPEAKING INSTRUCTOR [address], [address], [facility] 10/22/2024 23:01:02 Date Recorded Body height Body mass index (BMI) Body weight Provider Name and Address Organization Details Last Updated DateTime 11/12/2024 170.18 cm 31.3 kg/m2 69948.47 g PATRICIA CORONADO, PUBLIC SPEAKING INSTRUCTOR [address], [address], [facility] 11/12/2024 17:26:50 Social History Question Answer Notes LastModified by Organizat ion Details LastModified Time How Is The Health Risk Assessment Being Completed? Phone Interview -1975 Information not available 10/21/2024 Who Is Answering The Questions? Member -1975 Information not available 10/21/2024 What Is Your Primary Language? Frisian Information no t available 10/21/2024 Are You Of , , Or Burundian Origin? No Information n ot available 10/21/2024 What Is Your Primary Race? Black/ Information not available 10/21/2024 Are You A ? No Inform ation not available 10/21/2024 If You Are A Golden, Do You Get Health Care At The ID? None -1975 Information not available 10/21/2024 If Yes, Please Provide The Name Of The ID Clinic Or Address None Information not available [...] Past 2 Weeks How Often Have You [place] Down, Depressed, Or Hopeless? Not At All Information not available 10/21/2024 Over The Past 2 Weeks How Often Have You [place] Little Interest Or Pleasure In Doing Things? [...] SNOMED-CT Code Diagnosis ICD10 Code Diagnosis Note [id number] GRACIELA HOPSON [facility] [address] [address] 10/20/2024 17:14:26 11/19/2024 18:54:54 Essential hypertension 19618518 I10 Stable- continue HCTZ and lisinopril as prescribed Follow-up with PCP as scheduled Hyperlipidemia 07532863 E78.5 Stable- continue atorvastat in as prescribed Follow-up with PCP as scheduled Gastroesop hageal reflux disease without esophagitis 708620290 K21.9 Stable- continue pantoprazo le as prescribed Follow-up with PCP as scheduled Osteoarthr itis of lumbar spinal facet joint 325584275 M47.9 Stable- continue acetaminop hen as prescribed Follow-up with PCP as scheduled 76151 GRACIELA HOPSON [facility] [address] [place] [address] [place] [address] 11/12/2024 17:01:41 11/27/2024 12:08:01 Gastroesophageal reflux disease 445957432 K21.9 Stable- continue pantoprazo le as prescribed Follow-up with PCP as scheduled Stable angina 854311671 I20.89 Stable- continue nitroglyce rin as prescribed Follow-up with PCP as scheduled Essential hypertension 15195487 I10 Stable- continue amlodipine , HCTZ and lisinopril as prescribed Follow-up with PCP as scheduled Hyperlipidemia 57817068 E78.5 Stable- continue atorvastat in as prescribed Follow-up with PCP as scheduled Constipation 34101384 K5 9.00 Stable- continue dulcolax as prescribed Follow-up with PCP as scheduled Osteoarthr itis of lumbar spinal facet joint 876082552 M47.9 Stable- continue acetaminop hen as prescribed Follow-up with PCP as scheduled Overactive urinary bladder 453347125 N32.81 Stable- continue oxybutynin as prescribed Follow-up with PCP as scheduled Health Concerns Section Related Observation LastModified by Organization Detai ls LastModified Time None Recorded Concern Status LastModified by Organization Details LastModified Time None Recorded Advance Directives Directive None Recorded Payers Insurance Date Sequence Insurance Name Policy Number Policy Sears Covered Member ID Sears Member ID Guarantor Name 11/27/2024 1 [employer] (MEDICARE REPLACEMENT/A DVANTAGE - HMO) [id number] Louisa Ochoa [id number] Louisa Ochoa Notes Date Note Type Note Provider Name and Address Organization Details Recorded Time 10/20/2024 text/html 63 y/o AAF who w as seen for a Synchronous audio-visual telehealth visit. Recently relocated from [place] and in need of sigmoidoscopy. GRACIELA HOPSON [address] [place] [address], [place], [address], [facility] 10/22/2024 23:15:07 11/12/2024 text/html 64 y/o female wh o was seen for a Synchronous audio-visual telehealth visit. GRACIELA HOPSON [address] [address], [place], [address], [facility] 11/18/2024 20:55:33 OBGyn Episode No OBEpisode recorded.
--- OUTSIDE RECORDS SUMMARY | 2025-03-12 00:44 | XMS_ITS | Data Portability ---
Author Organization [facility] Jerod Gar[facility] Address [address] [place] [address] Care Team Providers Care Machine Carton Marker Name Role Phone [facility] Referring Provider Assessment Encounter Date Assessment [...] SNOMED-CT Code Diagnosis ICD10 Code Diagnosis Note [id number] KALPANA HA DPM [address] [address] 10/08/2023 14:07:07 10/08/2023 16:02:24 Acquired right hallux valgus 4028399961 45536 M20.11 Acquired l eft hallux valgus 0703834439 46306 M20.12 Pain in right foot 68702 89443 84093 M79.671 Pain in left foot 446065 9894 21890 M79.672 Health Concerns Section Related Observation LastModified by Organization Detai ls LastModified Time None Recorded Concern Status LastModified by Organization Details LastModified Time None Recorded Advance Directives Directive None Recorded Payers Insurance Date Sequence Insurance Name Policy Number Policy Sears Covered Member ID Sears Member ID Guarantor Name 10/05/2023 1 MEDICARE B-OK: [facility] [id number] Louisa Ochoa [id number] Louisa Ochoa 10/05/2023 2 [facility] (MEDICAID REPLACEMENT HMO) [id number] Louisa Ochoa [id number] Louisa Ochoa Notes Date Note Type Note [...] complaints.Denies recent falls. KALPANA HA DPM [address] [facility] ,[address], [place], [address], [facility] 10/08/2023 15:08:58 OBGyn Episode No OBEpisode recorded.
--- OUTSIDE RECORDS SUMMARY | 2025-03-12 00:45 | XMS_ITS | Clinical Summary ---
Author Organization [facility] Lakesha Perez Address [address] [address] Care Team Providers Care Hide Tanner Name Role Phone Unavailable Primary Care Provider [...] Encounters Date Type Department Care Team Description 01/21/2025 External Device Data [facility] ABSTRACTION Provider, Abstract 01/10/2025 External Device Data [facility] Provider, Abstract 01/09/2025 External Device Data [facility] [place] Provider, Abstract 01/07/2025 External Device Data [facility] [place] Provider, Abstract 12/24/2024 4:30 PM INFANT ROOM TEACHER Telephone Check Up [facility] Oncology and Hematology [facility] [address] [place] [address] Ken Eller MD 12/24/2024 External Device Data [facility] [place]STRA[facility] Provider, Abstract 12/24/2024 External Device Data [facility] [place] Provider, Abstract 12/23/2024 External Device Data [facility] [place]STRACTION Provider, Abstract 12/23/2024 Orders Only [facility] Oncology and [facility] [address] [place] [address] Ken Eller MD 12/23/2024 Abstract [facility] Oncology and Hematology [facility] [address] [place] [address] Ken Eller MD 12/16/2024 1:30 PM INFANT ROOM TEACHER Office Visit [facility] Oncology and [facility] [address] [place] [address] Ken Eller MD Rectal cancer (CMS/HCC) (Primary [...] on file Legal Sex Female 12:06 PM INFANT ROOM TEACHER Gender Identity Not on file Sexual Orientation Not on file Last Filed Vital Signs Vital Sign Reading Time Taken Comments Blood Pressure 159/81 12/16/2024 1:43 PM INFANT ROOM TEACHER took medication late has not kicked in Pulse 72 12/16/2024 1:43 PM INFANT ROOM TEACHER Temperature 36.3 C (97.3 F) 12/16/2024 1:43 PM INFANT ROOM TEACHER Respiratory Rate - - Oxygen Saturation 95% 12/16/2024 1:4 3 PM INFANT ROOM TEACHER Inhaled Oxygen Concentration - - Weight 88.5 kg (195 lb) 12/16/2024 1:43 PM INFANT ROOM TEACHER Height 170.2 cm (5' 7 ) 12/16/2024 1:43 PM INFANT ROOM TEACHER Body Mass Index 30.54 12/16/2024 1:43 PM INFANT ROOM TEACHER Plan of Treatment Upcoming Encounters Date Type Department Care Team (Late st Contact Info) Description 03/25/2025 2:45 PM CDT Office Visit [facility] Oncology and Hematology - [place] [address] [facility] [address] [place] [address] Ken Eller MD [address] [facility] [address] [place] [address] Health Maintenance Due Date Last Done Comments Pre-Diabetes and Diabetes Screening 1960 PNEUMOCOCCAL VACCINE 50+ YEA RS (1 of 1 - PCV) 2008 ZOSTER VACCINE (1 of 2) 2008 INFLUENZA VACCINE (#1) 2024 , 06/24/2021, 09/03/2020, Additional history exists COVID-19 Vaccine (2 - 2023-2 5 season) 2024 09/15/2022 BREAST CANCER SCREENING 07/30/2025 07/30/2024, 07/30 DTAP/TDAP/TD VACCINES (3 - T d or Tdap) 07/02/2027 07/02/2017, 09/08/2009 OSTEOPOROSIS SCREENING 07/30/2029 07/30/2024, 2023 RSV VACCINE (60+ or ) (1 - 1-dose 75+ series) 2033 Procedures Procedure Name Priority Date/Time Associated Diagnosis Comments CBC WITH DIFFERENTIAL Routine 12/16/2024 1:16 PM INFANT ROOM TEACHER from Last 3 Months Results * CBC WITH DIFFERENTIAL (12/16/2024 1:16 PM INFANT ROOM TEACHER) Blood us Ken Eller MD HEMATOLOGY ORDERABLES Final Res ult from Last 3 Months Insurance MEDICAID [place] GENERIC MEDICARE MANAGED CARE
--- OUTSIDE RECORDS SUMMARY | 2025-03-12 00:45 | XMS_ITS | Clinical Summary ---
Author Organization [facility] Address [address] [place] [address] Phone Care Team Providers Care Installment Loan Collector Name Role Phone Bryan Saenz MD Primary Care Provider [phone] Social History Tobacco Use Types Packs/Day Years Used Date Smoking Tobacco: Never Assessed Comments Unknown Sex and Gender Information Value Date Recorded Sex Assigned at Not on file Legal Sex Female 9:45 AM CDT Gender Identity Not on file Sexual Orientation Not on file Plan of Treatment Health Maintenance Due Date Last Done Comments Hepatitis C Virus (HCV) Screening 1960 Colonoscopy 2003 Colorectal Cancer Screening 2003 Cologuard 2008 Immunochemical Fecal Occult Blood 2008 Pneumococcal Immunization (50+ years) (1 of 1 - PCV) 2008 Zoster Immunization (1 of 2) 2008 Influenza Immunization (#1) 07/06/202409/05, 06/24/2021, 09/03/2020, Additional history exists SARS-COV-2 Immunization ( - season) 2024 09/15/2022 Mammogram 07/30/2025 07/30/2024 DEXA Bone Density 07/30/2026 07/30/2024 Respiratory Syncytial Virus (RSV) Immunization [...] to complete this topic Insurance MEDICARE C [employer]I Care Teams Installment Loan Collector Relationship Specialty Start Date End Date Bryan Saenz MD [address] [place] [address] PCP - General Family Medicine 07/29/24
--- OUTSIDE RECORDS SUMMARY | 2025-03-12 00:45 | XMS_ITS | Data Portability ---
Author Organization [facility] JOSEFAJocelyn Marte Address [address] [place] [address] Assessment Encounter Date Assessment Date Assessment LastModified by Organization Details LastModified Time 07/24/2024 07/24/2024 Pt moved here from [place] in December 2023 and is in need of regular oncological followup, [place]. [email or web address] Not available 07/29/2024 07:10:49 08/25/2024 08/25/2024 Pt is stable. 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 [email or web address] Not available 08/26/2024 15:55:41 11/19/2024 11/19/2024 Louisa [...] the pain, but it reoccurs after eating. [email or web address] Not available 11/19/2024 12:43:17 Plan of Treatment Reminders Order Date Submit Date Provider Last Modified By Organization Details Last Modified Time Details Appointments ANY 15 2024 10:15A Anish Saenz MD Not available Not available Not available Lab None record ed. Referral neurol ogist referr al [email or web address] - Neurology, [address], [address], [place], [address], 03/10/2025 13:53:59 oncolo gist referr al 2023 024 josé miguel tao Not available 07/29/2024 10:05:39 oncolo gist referr al - Histor y of rectum cancer , post surger y, unknow n pathol ogy, on remiss ion needs monito ring. 2023 024 josé miguel tao Devon Palmerhu, [address] [place], [address], 07/01/2024 17:29:01 Procedures None record ed. Surgeries None record ed. Imaging MAMMO, screen ing, digita l, bilate ral 2023 024 [facility], [address] [place], [address], 08/15/2024 12:20:19 DEXA, axial skelet on 2023 024 [facility], [address] [place], [address], 08/07/2024 10:04:34 Medication Orders None record ed. Patient TargetsNo targets recorded. Patient Instructions Encounter Date Encounter Id Patient Instructions Last Modified By Organization Details Last Modified Time 06/13/2024 [id number] A healthy lifest yle: care instructions [email or web address] Not available 06/13/2024 10:25:09 sleep apnea: car e instructions [email or web address] Not available 06/13/2024 10:38:49 On the date of t his encounter, I saw and examined the patient, personally verifying the nolasco and critical findings in the resident s note. I reviewed and agree with the resident/fellow s findings and plan. ~MD Mike [email or web address] Not available 06/13/2024 10:14:52 07/24/2024 [id number] mammogram: about this test [email or web address] Not available 07/24/2024 12:37:00 bladder training : care instructions [email or web address] Not available 07/24/2024 12:35:05 kegel exercises: care instructions [email or web address] Not available 07/24/2024 12:35:05 Stress Incontine nce: Care Instructions [email or web address] Not available 07/24/2024 12:35:05 gastroesophageal reflux disease (GERD): care instructions [email or web address] Not available 07/24/2024 12:35:05 high blood press ure: care instructions [email or web address] Not available 07/24/2024 12:35:05 learning about h igh blood pressure [email or web address] Not available 07/24/2024 12:35:05 08/25/2024 [id number] advance care planning: care instructions Not available 08/25/2024 12:35:37 preventing falls : care instructions Not available 08/25/2024 12:35:37 Quitting Tobacco : Care Instructions Not available 08/25/2024 12:35:37 Medicare [facility] Preventive Checklist [email or web address] Not available 08/25/2024 12:35:37 eating healthy foods: care instructions [email or web address] Not available 08/25/2024 12:35:37 AD8 Dementia Screening Interview [email or web address] Not available 08/25/2024 12:35:37 11/19/2024 [id number] A healthy lifest yle: care instructions Not available 11/19/2024 12:58:57 Reason for Referral History of rectum cancer, po st surgery, unknown pathology, on remission needs monitoring. Referring Physician: Betty Cantu, Ski Production Supervisor, Encounter Date: 06/13/2024 Referring Physician: Bryan johnson, Family Medicine, Encounter Date: 07/24/2024 Neurologist Referral for Fam maria luz history of dementia Referring Physician: Bryan Saenz, Family Medicine, Encounter Date: 07/24/2024 Results Created Date Observation Date Name Description Value Unit Range Abnormal Flag Note LastModifiedBy Organization Detail LastModifiedTime 08/07/20 24 07/30/2024 DEXA, axial skele ton No observ ation record ed. [facility] [address] [facility] [place], [address], 08/12/2024 11:30:54 08/14/2007/30/2024 MAMMO , scree delmar, digit al, bilat eral No observ ation record ed. [facility] [address] [facility] [place], [address], 09/23/2024 12:12:49 Result Notes None recorded. Problems Name Problem SNOMED Code Status Onset Date Resolution Date Notes Provider Name and Address Organization Details Recorded Time Malignant neoplasm of rectum 639380704 Completed 202306/24/2024 BETTY CANTU MD Attn: Marga cuevas,[address], [place], [address], [place] [facility] 4 09:39:55 Osteoarthri tis 970603702 Active 2023 BETTY CANTU MD Attn: Marga cuevas,[address], [place], [address], [place] [facility] 4 10:29:36 Essential hypertensio n 15475238 Active 2023 BETTY CANTU MD Attn: Marga cuevas,[address], [place], [address], [place] [facility] 4 10:37:34 Prediabetes 061365880 Active 2023 BETTY CANTU MD Attn: Marga cuevas,[address], [place], [address], [place] [facility] 4 09:40:12 Obesity 895332830 Active 2023 BETTY CANTU MD Attn: Marga cuevas,[address], [place], [address], [place] [facility] 4 09:40:04 [place] 61505158 Active 2023 BETTY CANTU MD Attn: Warrenann cuevas,[address], [place], [address], [place] [facility] 4 09:40:07 Obstructive sleep apnea syndrome 55617956 Active 2023 BETTY CANTU MD Attn: Marga g,[address], [place], [address], [place] [facility] 4 09:39:59 History of malignant neoplasm of rectum 625866530 Active 2023 BETTY CANTU MD Attn: Marga g,[address], [place], [address], [facility] - [facility] 4 09:39:49 Problem Notes None recorded. Procedures Surgical History Date Name Laterality Status Provider Name and Address Organization Details Recorded Time screening for malignant neoplasm of rectum completed Debra Padgett MA [place] - [place] 06/13/2024 09:21:53 hysterectomy completed BETTY CANTU MD Attn: Accounting, [address], [place], [address], [facility] - [facility] 06/13/2024 09:35:16 Imaging Results Imaging Date Name Status LastModified by Organiz ation Details LastModified Time 07/30/2024 DEXA, axial skeleton completed [address] [place], [address], 08/12/2024 11:30:54 07/30/2024 MAMMO, screening, digital, bilateral completed [address] [place], [address], 09/23/2024 12:12:49 Procedure Notes None recorded. Medical Equipment None Reported. Allergies Allergen ID Allergen Name Allergen Category Reaction Reaction Severity Criticality Documentation Date Start Date Code Code System Note Provider Name and Address Organization Details Recorded Time Product containin g penicilli n (product) medicatio n anaphylax is facial swelling rash Not available Not available Not available unabletoasse 06/13/2024 73918 8001 SNOMED Jackie Khanna MA null, [facility] [address] 4 12:03:30 415595 diphenhyd ramine medicatio n vomiting Not available [facility] 06/13/2024 3498 RxNorm BILLY Conway, [facility] [address] 4 12:03:04 307556 domiphen Not available vomiting Not available [facility] 06/13/2024 35036 RxNorm BILLY Conway, [facility] [address] 4 12:03:16 716783 pravastat in medicatio n Not available Not available [facility] 06/13/2024 36149 RxNorm Pt. doesn 't remem paul what react ion it is. BILLY Conway, [facility] [address] 4 12:04:17 Medications Name Sig Start Date Stop Date [...] Address Organization Details Last Updated DateTime 4 05197.3 3 g 30.8 kg/m2 171.45 cm 97.2 [degF] 18 /min 94 % 94 % 91 /min 151 mm[Hg] 84 mm[Hg] Debra Padgett MA [facility] 4 09:24:01 Date Recorded Systolic blood pressure Diastolic blood pressure Provider Name and Address Organization Details Last Updated DateTime 06/13/2024 143 mm[Hg] 81 mm[Hg] JOSUE Guerrero [facility] 06/13/2024 10:16:52 Date Recorded Body height Body mass index (BMI) Body weight Heart rate Respiratory rate Body temperature Systolic blood pressure Diastolic blood pressure Provider Name and Address Organization Details Last Updated DateTime 4 171.45 cm 31.1 kg/m2 86189.8 7 g 76 /min 18 /min 96.8 [degF] 126 mm[Hg] 81 mm[Hg] Jackie Khanna MA [facility] 4 12:30:32 Date Recorded Body height Body mass index (BMI) Body weight Oxygen saturation Oxygen saturation in Arterial blood by Pulse oximetry Heart rate Respiratory rate Body temperature Provider Name and Address Organization Details Last Updated DateTime 4 171.45 cm 31 kg/m2 53158.0 7 g 93 % 93 % 80 /min 16 /min 97.2 [degF] Jackie Khanna MA [facility] [address] 4 11:43:00 Date Recorded Systolic blood pressure Diastolic blood pressure Provider Name and Address Organization Details Last Updated DateTime 08/25/2024 150 mm[Hg] 90 mm[Hg] Bryan Saenz MD Attn: Accounting,[address] [place], [address], [facility] 08/25/2024 12:37:09 Date Recorded Body height Body mass index (BMI) Body weight Oxygen saturation Oxygen saturation in Arterial blood by Pulse oximetry Heart rate Respiratory rate Body temperature Systolic blood pressure Diastolic blood pressure Provider Name and Address Organization Details Last Updated DateTime 5 171.45 cm 30.6 kg/m2 57443.7 4 g 97 % 97 % 88 /min 16 /min 97.8 [degF] 148 mm[Hg] 82 mm[Hg] Jackie Khanna MA [facility] 5 12:34:12 Social History Question Answer Notes LastModified by Organizat ion Details LastModified Time Tobacco Smoking Status Former Smoker Pt. quit in 2013 Jackie Khanna MA null, [facility] 07/24/2024 12:22:13 Do You Have An Advance [...] You Had Close Contact With A Laboratory-confir med COVID-19 While That Case Was Ill? No [...] 7 Days, How Much Pain Have You [place]? Some Information not available 08/25/2024 In General, Would You Say You Health Is: Fair Information not available 08/25/2024 How Would You Describe The Condition Of Your Mouth And Teeth- Including False Teeth Or Dentures? Good Information not available 08/25/2024 Has Anyone Ever Told You That You Snore? Yes Information not available 08/25/2024 In The Past 7 Days, How Often Have You [place] Sleepy In The Daytime? Usually Information not [...] Anxious, Or Unable To Sleep At Night)? [id number] Information not available 07/24/2024 Do You Use [...] Not availab le 07/24/2024 12:18:23 Mother Malignant neoplasm of lung [email or web address] Not available 07/24 12:18:47 [...] Atrial Fibrillation N High Blood Pressure Y Thyroid Problems N Kidney or Bladder Problems N Depression N COPD N Blood Clots N GI Problems Y Have you had a mammogram in the last yea r? N Skin Problems N Eating Disorder N Anemia N Heart Attack (SC) N Diabetes N Anxiety Disorder N Muscle, Joint, or Bone Problems N Seizures/Epilepsy N Have you had a colonoscopy in the last 1 0 years? N Arthritis Y Acid Reflux (GERD) Y Cancer Y Stroke N Allergies Y Asthma N Have you had a PSA blood test in the las t year? N ADHD N Substance Abuse N High Cholesterol Y Hepatitis N Liver Disease N Schizophrenia N Headaches N Osteoporosis N Heart Failure N Gynecological History Statement/Question Response Date of [...] LNP-S, bivalent, PF, 10 mcg/0.2 mL 03/25/2021 BILLY Escobar, [place] [facility] 07/24/2024 12:35:40 COVID-19, mRNA, LNP-S, bivalent, PF, 10 mcg/0.2 mL 10/08/2021 dayami Khanna [place] null, [place] [facility] 07/24/2024 12:36:32 COVID-19, mRNA, LNP-S, PF, 100 mcg/0.5mL dose or 50 mcg/0.25mL dose 06/09/2022 BILLY [place]obar, [place] [facility] 07/24/2024 12:38:26 COVID-19, mRNA, LNP-S, bivalent, PF, 10 mcg/0.2 mL 09/15/2022 BILLY Escobar, [place] [facility] 07/24/2024 12:39:05 zoster, unspecified formulation 12/06/2018 completed Jackie Khanna [place], [place] [facility] 07/24/2024 12:40:22 zoster, unspecified formulation 05/06/2019 completed Jackie Khanna [place] [facility] 07/24/2024 12:40:56 Hep A, adult 08/07/2017 completed Jackie Kh[place] [facility] 07/24/2024 12:41:37 Influenza, high-dose, trivalent, PF 07/24/2024 completed Jackie Khanna [place] [facility] 07/24/2024 13:23:11 Past Encounters Encounter ID Performer Location Encounter Start Date Encounter Closed Date Diagnosis/Indication Diagnosis SNOMED-CT Code Diagnosis ICD10 Code Diagnosis Note [id number] MD Vashti Patino 14 IM [address] [facility] [address] [place] [address] 06/13/2024 08:53:15 06/25/2024 15:42:41 Obesity 172370795 E66.8 -Recommend continued lifestyle modificati ons & exercise >150mins/w k- Recommend adding fresh fruits and vegetables and avoiding sugary drinks. Adult heal th examination 057533655 Z00.00 -Patient doing well overall.-M ove to [place] in December 2023 from [place] .-Discusse d preventive measure: ordering DEXA scan and Mammograph y today.-Rec ommended pneumococc al vaccine, waiting for immunizati on records. Screening mammography 24 462621 Z12.31 -Will contact patient once results are received. Osteoarthritis 101790468 M19.90 Postmenopausal state 764 95933 Z78.0 -Will contact patient once results are received. Essential hypertension 65484231 I10 -BP: 151/84 Repeat: 143/81-Con tinue current medication s as prescribed .-Follow up at next visit. Prediabetes 455541087 R7 3.03 -A1C two weeks ago was 6.2 at previous PCP office. Obstructiv e sleep apnea syndrome 26063560 G47.33 -Pt desires a re measure on CPAP, not using current CPAP machine.-D iagnosed more than a year ago.-Relea se records signed, waiting on documentat ion. History of malignant neoplasm of rectum 586358862 Z85.048 -Referral to oncology for monitor of disease.-P revious patient of brandon Howard no longer in network with new insurance. [id number] MD Vashti Jiang 14 IM [address] [facility] [place] [address] 07/24/2024 11:43:30 07/29/2024 11:12:12 Benign essential hypertension 2346963 I10 Female str ess incontinence 84214410 N39.3 Gastroesop hageal reflux disease 547882209 K21.9 History of malignant neoplasm of rectum 701102393 Z85.048 surgery was in ; pt moved here in Screening mammography 24 780916 Z12.31 scheduled Influenza immunization advised 277134149 Z71.85 Family his tory of dementia 056422887 Z81.8 [id number] MD Vashti Jiang 14 IM [address] [facility] [place] [address] 08/25/2024 11:32:38 09/03/2024 10:06:39 Adult health examination 653878933 Z00.00 Health Risk Assessment collected and reviewed [id number] MD Vashti Jiang 14 IM [address] [facility] [place] [address] 11/19/2024 12:14:21 11/25/2024 14:58:51 Obesity 930695209 E66.9 BMI=30.6 Atypical chest pain 1025 98455 R07.89 now resolved; recent ER workup was negative for a cardiac source History of malignant neoplasm of rectum 199031528 Z85.048 pt has an upcoming appt with the specialist in [facility] Concerns Section Related Observation LastModified by Organization Detai ls LastModified Time None Recorded Concern Status LastModified by Organization Details LastModified Time None Recorded Advance Directives Directive N: Payers Encounter Date Sequence Insurance Name Policy Number Policy Sears Covered Member ID Sears Member ID Guarantor Name 06/13/2024 1 [employer] (MEDICARE REPLACEMENT/A DVANTAGE - HMO) [id number] Louisa Ochoa [id number] Louisa Ochoa 07/24/2024 1 [facility] (MEDICARE REPLACEMENT/A DVANTAGE - HMO) [id number] Louisa Ochoa [id number] Louisa Ochoa 08/25/2024 1 [facility] (MEDICARE REPLACEMENT/A DVANTAGE - HMO) [id number] Louisa Ochoa [id number] Louisa Ochoa 11/19/2024 1 [facility] (MEDICARE REPLACEMENT/A DVANTAGE - HMO) [id number] Louisa Ochoa [id number] Louisa Ochoa Notes Date Note Type Note [...] like to establish care with 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 Has good support if needed. Guerita Long MD Attn: Accounting,[address] [place], [address], [facility] 06/24/2024 18:48:08 07/24/2024 text/html Pt is transferri ng to this PCP. Bryan Saenz MD Attn: Accounting,[address] [place], [address], [facility] 07/29/2024 07:15:12 08/25/2024 text/html Followup to last visit. Bryan Saenz MD Attn: Accounting,[address], [place], [address], [facility] 08/26/2024 15:56:38 11/19/2024 text/html Louisa Ochoa is [...] eating. Bryan Saenz MD Attn: Accounting,[address] [place], [address], [place] [facility] 11/21/2024 16:52:17 OBGyn Episode No OBEpisode recorded.
[2025-03-12 09:38] VITALS: BP 149/87; PULSE 78; RESP 18; TEMP 36.1; O2SAT 98; BMI 30.7
[2025-03-12] MEDS: LACTATED RINGERS 1,000 ML 150 ML IV CONT (09:54)
--- NOTE | 2025-03-12 10:22 | WPDANESEPPF ---
Anes - Initial Pre Proc Eval Procedure: Operation Date: 03/12/25 11:00 Proposed Procedures p Colonoscopy - Alphonso Toussaint MD Date/Time: 03/12/25 10:22 Surgeon: Alphonso Toussaint MD Pre Op Diagnosis: Malignant neoplasm of rectum Patient Data Age: 64 Gender: F Height: 1.7 m Weight: 89 kg Last Vital Signs Temp 96.9 F L 03/12/25 09:38 Pulse 78 03/12/25 09:38 Resp 18 03/12/25 09:38 BP 149/87 H 03/12/25 09:38 Pulse Ox 98 03/12/25 09:38 O2 Del Method Room Air 03/12/25 09:38 Allergies Allergy/AdvReac Type Severity Reaction Status Date / Time Penicillins Allergy Severe Swelling Verified 03/12/25 09:36 of Lip/Tongue/Throat Home Medications ?Medication ?Instructions ?Recorded ?Confirmed ?Type amlodipine 10 mg tablet 10 mg PO DAILY 02/25/25 03/12/25 History aspirin 81 mg tablet,delayed 81 mg PO DAILY 02/25/25 03/12/25 History release (Adult Low Dose Aspirin) atorvastatin 40 mg tablet 40 mg PO DAILY 02/25/25 03/12/25 History hydrochlorothiazide 25 mg tablet 25 mg PO DAILY 02/25/25 03/12/25 History lisinopril 40 mg tablet 40 mg PO DAILY 02/25/25 03/12/25 History oxybutynin chloride 5 mg tablet 5 mg PO Q12H 02/25/25 03/12/25 History pantoprazole 40 mg tablet,delayed 40 mg PO DAILY 02/25/25 03/12/25 History release peg 3350-electrolytes 236 240 ml PO Q10M #4,000 mL 02/25/25 03/12/25 Rx gram-22.74 gram-6.74 gram-5.86 gram solution (Golytely) Patient hx anesthesia problems: none Family hx anesthesia problems: none Results Review: All pre-operative results and documents have been reviewed as part of the pre-operative evaluation. [facility] Social History Social History Smoking packs per day: 1 Smoking cigarettes per day: 20.0 Years smoked: 20 Smoking pack-years: 20.00 Smoking status: Former smoker Tobacco type: cigarettes Alcohol intake: never Substance use: never Substance use type: does not use Living arrangements: with family Spiritual care concerns: No Anes - Eval Final PreProcedure Day of Procedure 03/12/25 10:22 Patient weight: obese Lungs: normal air movement Airway: Mallampati scale class II Neurological: alert and oriented Last oral intake: >/= 8 hours ASA classification: III Emergent: no Anesthetic plan: proceed Anesthesia type and monitoring: general GIVS and standard monitoring Results Review: All pre-operative results and documents have been reviewed as part of the pre-operative evaluation. HTN, hyperlipidemia, SHAILESH but not on CPAP. Ex smoker, quit 2014. Informed Consent: The patient's anesthetic plan and its attendant risks and benefits were discussed with the patient/family/POA. Questions were solicited and answers provided to the satisfaction of the patient/family/POA.
--- NOTE | 2025-03-12 10:34 | PM.HPGS ---
History of Present Illness History of Present Illness Consent: Risks, benefits, and alternatives have been discussed and questions answered. Patient agrees to proceed with procedure. Chief complaint: Malignant neoplasm of rectum Narrative: Louisa Ochoa is a 64 year old female with history colon cancer about 1 year ago s/p surgery Review of Systems Review of Systems: All systems reviewed & are unremarkable except as noted in HPI and below PMFSH Past Medical History Medical History (Updated 03/12/25 @ 10:35 by Alphonso Toussaint MD) History of colon cancer Social History Social History Smoking packs per day: 1 Smoking cigarettes per day: 20.0 Years smoked: 20 Smoking pack-years: 20.00 Smoking status: Former smoker Tobacco type: cigarettes Alcohol intake: never Substance use: never Substance use type: does not use Living arrangements: with family Spiritual care concerns: No Meds Home Medications and Allergies Home Medications ?Medication ?Instructions ?Recorded ?Confirmed ?Type amlodipine 10 mg tablet 10 mg PO DAILY 02/25/25 03/12/25 History aspirin 81 mg tablet,delayed 81 mg PO DAILY 02/25/25 03/12/25 History release (Adult Low Dose Aspirin) atorvastatin 40 mg tablet 40 mg PO DAILY 02/25/25 03/12/25 History hydrochlorothiazide 25 mg tablet 25 mg PO DAILY 02/25/25 03/12/25 History lisinopril 40 mg tablet 40 mg PO DAILY 02/25/25 03/12/25 History oxybutynin chloride 5 mg tablet 5 mg PO Q12H 02/25/25 03/12/25 History pantoprazole 40 mg tablet,delayed 40 mg PO DAILY 02/25/25 03/12/25 History release peg 3350-electrolytes 236 240 ml PO Q10M #4,000 mL 02/25/25 03/12/25 Rx gram-22.74 gram-6.74 gram-5.86 gram solution (Golytely) Allergies Allergy/AdvReac Type Severity Reaction Status Date / Time Penicillins Allergy Severe Swelling Verified 03/12/25 09:36 of Lip/Tongue/Throat Vital Signs Vital Signs - 24 hr 03/12/25 09:38 Temperature 96.9 F L Pulse Rate 78 Respiratory Rate 18 Blood Pressure 149/87 H Pulse Oximetry 98 Oxygen Delivery Room Air Exam Const: General: comfortable and no acute distress HENMT: Face/Nose/Sinus: Normal nares present Eyes: General: appearance normal, both eyes and all related structures Neck: Neck: no JVD Resp: Auscultation: clear to auscultation bilaterally Cardio: Rate: regular rate Rhythm: regular rhythm GI: Inspection: non-distended GI Palp: Yes Soft to palpation Skin: General skin exam: normal color Neuro: General: gait normal Speech: normal speech Extrem: General: normal to inspection Psych: Mental Status: mental status grossly normal Assessment and Plan Assessment and plan (1) History of colon cancer: Code(s): Z85.038 - Personal history of other malignant neoplasm of large intestine Status: Acute Assessment and Plan: colonoscopy
[2025-03-12 10:48] VITALS: BP 86/47; PULSE 71; RESP 16; O2SAT 96
[2025-03-12 10:58] VITALS: BP 89/46; PULSE 71; RESP 15; O2SAT 95
[2025-03-12 11:08] VITALS: BP 123/53; PULSE 61; RESP 16; O2SAT 97
== END 2025-03-12 11:28 | disposition home or self-care (01) ==
PROVIDERS: PCP Family Medicine; Referring Provider Internal Medicine Hematology & Oncology; Visit Provider Internal Medicine Gastroenterology
PROC: 0DJD8ZZ Inspection of Lower Intestinal Tract, Via Natural or Artificial Opening Endoscopic (ICD-10-PCS; CPT 45378; principal; 2025-03-12 11:00)
DX: Z08 Encounter for follow-up examination after completed treatment for malignant neoplasm (principal); D12.3 Benign neoplasm of transverse colon; K57.30 Diverticulosis of large intestine without perforation or abscess without bleeding; K64.8 Other hemorrhoids; Z85.038 Personal history of other malignant neoplasm of large intestine; Z98.0 Intestinal bypass and anastomosis status; Z90.49 Acquired absence of other specified parts of digestive tract; Z87.891 Personal history of nicotine dependence; E66.9 Obesity, unspecified; Z68.30 Body mass index [BMI] 30.0-30.9, adult
CPT/HCPCS: 45385; 88305; J2003; J2704; J7120

== ENCOUNTER 2025-03-16 09:11 | Outpatient (CLI) | payer MEDICARE, MEDICAID, SELFPAY ==
--- NOTE | ~2025-03-16 | CT_ITS ---
CT of the Abdomen and Pelvis: Indication: Rectal cancer Technique: 2.5 mm axial scans were obtained through the abdomen and pelvis following intravenous adm inistration of 100 cc of Omnipaque 350. Dose reduction technique was used on this scan by utilizing a utomated exposure control and iterative reconstruction technique. The dose-length product (DLP) was 6 31.01 mGy-cm. Findings: Scans through the lung bases are unremarkable. The liver, spleen, pancreas, gallbladder, adrenals and kidneys are within normal limits. There are ex tensive atherosclerotic calcifications of the aorta an iliac vessels. No lymphadenopathy. No bowel obstruction or bowel wall thickening. There is no evidence to suggest acute appendicitis. Images through the pelvis were performed. Urinary bladder unremarkable. No pelvic mass seen. Probable prior hysterectomy. No ascites. Impression: No definite evidence for active malignancy or metastatic disease. Reviewed, dictated and finalized at [facility]. Impression: No definite evidence for active malignancy or metastatic disease.
--- OUTSIDE RECORDS SUMMARY | 2025-03-16 09:20 | XMS_ITS | Data Portability ---
Author Organization MD Brandie BARRETT [facility], [facility] Address [address] [facility] [address] [place] [address] Assessment No assessment recorded. Plan of Treatment [...] By Organization Details Last Modified Time 10/20/2024 01489 Continue all medications as prescribed Follow-up with PCP as scheduled [email or web address] Not available 10/21/2024 08:13:33 11/12/2024 96621 Continue all medications as prescribed Follow-up with PCP and consulting specialists as scheduled Continue sigmoidoscopy every 3 months Not available 11/18/2024 20:55:16 Reason for Referral [...] Updated DateTime 10/20/2024 170.18 cm 31.6 kg/m2 47957.66 g PATRICIA CORONADO, TOOL SUPERVISOR [address], [address], [facility] 10/22/2024 23:01:02 Date Recorded Body height Body mass index (BMI) Body weight Provider Name and Address Organization Details Last Updated DateTime 11/12/2024 170.18 cm 31.3 kg/m2 07636.47 g PATRICIA CORONADO, TOOL SUPERVISOR [address], [address], [facility] 11/12/2024 17:26:50 Social History Question Answer Notes LastModified by Organizat ion Details LastModified Time How Is The Health Risk Assessment Being Completed? Phone Interview -1975 Information not available 10/21/2024 Who Is Answering The Questions? Member -1975 Information not available 10/21/2024 What Is Your Primary Language? Korean Information no t available 10/21/2024 Are You Of , , Or Saudi Arabian Origin? No Information n ot available 10/21/2024 What Is Your Primary Race? Black/ Information not available 10/21/2024 Are You A Pana? No Inform ation not available 10/21/2024 If You Are A , Do You Get Health Care At The [place]? None -1973 Information not available 10/21/2024 If Yes, Please Provide The Name Of The [facility] Or Address None Information not available [...] Past 2 Weeks How Often Have You H[place] Down, Depressed, Or Hopeless? Not At All Information not available 10/21/2024 Over The Past 2 Weeks How Often Have You [place] Little Interest Or Pleasure In Doing Things? [...] SNOMED-CT Code Diagnosis ICD10 Code Diagnosis Note [id number] [facility] [address] [address] 10/20/2024 17:14:26 11/19/2024 18:54:54 Essential hypertension 56909058 I10 Stable- continue HCTZ and lisinopril as prescribed Follow-up with PCP as scheduled Hyperlipidemia 15905372 E78.5 Stable- continue atorvastat in as prescribed Follow-up with PCP as scheduled Gastroesop hageal reflux disease without esophagitis 082270325 K21.9 Stable- continue pantoprazo le as prescribed Follow-up with PCP as scheduled Osteoarthr itis of lumbar spinal facet joint 192643201 M47.9 Stable- continue acetaminop hen as prescribed Follow-up with PCP as scheduled [id number] [facility] [address] [place] [address] 11/12/2024 17:01:41 11/27/2024 12:08:01 Gastroesophageal reflux disease 009632001 K21.9 Stable- continue pantoprazo le as prescribed Follow-up with PCP as scheduled Stable angina 071159776 I20.89 Stable- continue nitroglyce rin as prescribed Follow-up with PCP as scheduled Essential hypertension 25298602 I10 Stable- continue amlodipine , HCTZ and lisinopril as prescribed Follow-up with PCP as scheduled Hyperlipidemia 56066854 E78.5 Stable- continue atorvastat in as prescribed Follow-up with PCP as scheduled Constipation 72802802 K5 9.00 Stable- continue dulcolax as prescribed Follow-up with PCP as scheduled Osteoarthr itis of lumbar spinal facet joint 325326665 M47.9 Stable- continue acetaminop hen as prescribed Follow-up with PCP as scheduled Overactive urinary bladder 301878667 N32.81 Stable- continue oxybutynin as prescribed Follow-up with PCP as scheduled Health Concerns Section Related Observation LastModified by Organization Detai ls LastModified Time None Recorded Concern Status LastModified by Organization Details LastModified Time None Recorded Advance Directives Directive None Recorded Payers Insurance Date Sequence Insurance Name Policy Number Policy Sears Covered Member ID Sears Member ID Guarantor Name 11/27/2024 1 [employer] (MEDICARE REPLACEMENT/A DVANTAGE - HMO) [id number] Louisa Ochoa [id number] Louisa Ochoa Notes Date Note Type Note Provider Name and Address Organization Details Recorded Time 10/20/2024 text/html 63 y/o AAF who w as seen for a Synchronous audio-visual telehealth visit. Recently relocated from [place] and in need of sigmoidoscopy. GRACIELA HOPSON [address] [address], [place], [address], [facility] 10/22/2024 23:15:07 11/12/2024 text/html 64 y/o female wh o was seen for a Synchronous audio-visual telehealth visit. GRACIELA HOPSON [address] [address], [place], [address], [facility] 11/18/2024 20:55:33 OBGyn Episode No OBEpisode recorded.
--- OUTSIDE RECORDS SUMMARY | 2025-03-16 09:20 | XMS_ITS | Data Portability ---
Author Organization [place] [facility] Address [address] [place] [address] Care Team Providers Care Education Professor Name Role Phone MARIANNE ANABEL Referring Provider Assessment Encounter Date Assessment Date Assessment LastModified by Organization Details LastModified Time 05/28/2023 05/28/2023 Wrist splints at night time only x 6 weeks PT for neck pain/paresthe yumiko RTC 2mo --- reassess, consider emg/ncs at that time. [email or web address] Not available 05/28/2023 17:24:07 07/31/2023 07/31/2023 Continue Wrist splints at night PT for neck pain/tension RTC 3mo Not available 07/31/2023 15:18:49 10/25/2023 10/25/2023 Continue Wrist splints at night RTC PRN new or worsening symptoms [email or web address] Not available 10/25/2023 13:14:45 Plan of Treatment Reminders Order Date Submit Date Provider Last Modified By Organization Details Last Modified Time Details Appointments None recorded. Lab None recorded. Referral physical therapist referral 2022 023 [email or web address], [address] [place], [address], 13:17:08 Procedures None recorded. Surgeries None recorded. Imaging None recorded. Medication Orders None recorded. Patient TargetsNo targets recorded. Patient Instructions Encounter Date Encounter Id Patient Instructions Last Modified By Organization Details Last Modified Time 05/28/[id number] Yumiko Pugh . I provided direction and supervision to STRETCHING MACHINE OPERATOR at time of the visit. I developed [...] Details Recorded Time Paresthesia of upper limb 35867133 Active 2022 [place] [address] [address], [address], [place], [address] , [facility] 17:16:08 Neck pain 31701044 Active 2022 [place] [address], [address], [place], [address] , [facility] 17:22:29 Problem Notes None recorded. Procedures Surgical History Date Name Laterality Status Provider Name and Address Organization Details Recorded Time Hysterectomy completed Elvin Roman [place] - [facility] 05/28/2023 16:28:42 Imaging [...] Address Organization Details Last Updated DateTime 05/28/2023 60947.47 g 88 /min 138 mm[Hg] 83 mm[Hg] [...] Address Organization Details Last Updated DateTime 3 11392.4 7 g 31.3 kg/m2 170.18 cm 74 [...] SNOMED-CT Code Diagnosis ICD10 Code Diagnosis Note [address] [place] [address] 05/28/2023 16:07:24 05/28/2023 17:25:05 Paresthesia of upper limb 80206909 R20.2 Neck pain 59235837 M54.[address] [place] [address] 07/31/2023 14:29:07 08/01/2023 01:14:03 Neck pain 31502572 M54.2 Paresthesi a of upper limb 91298143 R20.2 IMPROVED 58062 Marilyn Mcgee NP [address] [place] [address] 10/25/2023 12:30:01 10/25/2023 13:14:41 Paresthesia of upper limb 47540385 R20.2 resolved with wrist splinting Neck pain 85294461 M54.2 resolved Health Concerns Section Related Observation LastModified by Organization Detai ls LastModified Time None Recorded Concern Status LastModified by Organization Details LastModified Time None Recorded Advance Directives Directive None Recorded Payers Encounter Date Sequence Insurance Name Policy Number Policy Sears Covered Member ID Sears Member ID Guarantor Name 05/28/2023 2 [facility] (MEDICAID REPLACEMENT HMO) Louisa Ochoa [id number] Louisa Ochoa 07/31/2023 2 [facility] (MEDICAID REPLACEMENT HMO) Louisa Ochoa [id number] Louisa Ochoa 10/25/2023 2 [facility] (MEDICAID REPLACEMENT HMO) Louisa Ochoa [id number] Louisa Ochoa 10/25/2023 1 MEDICARE B-[place]: [facility] Louisa Ochoa [id number] Louisa Ochoa Notes Date Note Type Note [...] hands[place] or [place] [address], [place], [address], [facility] 06/08/2023 15:25:20 [...] handsNo [place] [address], [address], [place], [address], [place] [facility] 07/31/2023 15:19:28 10/25/2023 text/html 62 yo female follow up for numbness in bilateral hands. Symptoms improved. Wearing wrist splints at night with relief, reports no longer experiencing numbness unless she forgets to wear the splint.Asymptomati c during the day.Denies neck pain/tensionNo focal weakness.No pain in wrists or handsNo [place] [address], [address], [place], [address], [place] [facility] 10/25/2023 13:15:09 OBGyn Episode No OBEpisode recorded.
--- OUTSIDE RECORDS SUMMARY | 2025-03-16 09:21 | XMS_ITS | Data Portability ---
Author Organization JOSUE Jerod Garay [facility] Address [address] [place] [address] Care Team Providers Care Manager Zone Name Role Phone [facility] Referring Provider Assessment Encounter Date Assessment [...] SNOMED-CT Code Diagnosis ICD10 Code Diagnosis Note [id number] KALPANA HA DPM [address] [address] 10/08/2023 14:07:07 10/08/2023 16:02:24 Acquired right hallux valgus 7549106094 53951 M20.11 Acquired l eft hallux valgus 1018527969 97098 M20.12 Pain in right foot 38347 97408 05029 M79.671 Pain in left foot 060808 8524 99472 M79.672 Health Concerns Section Related Observation LastModified by Organization Detai ls LastModified Time None Recorded Concern Status LastModified by Organization Details LastModified Time None Recorded Advance Directives Directive None Recorded Payers Insurance Date Sequence Insurance Name Policy Number Policy Sears Covered Member ID Sears Member ID Guarantor Name 10/05/2023 1 MEDICARE B-[place]: [facility] [id number] Louisa Ochoa [id number] Louisa Ochoa 10/05/2023 2 [facility] (MEDICAID REPLACEMENT HMO) [id number] Louisa Ochoa [id number] Louisa Ochoa Notes Date Note Type Note [...] complaints.Denies recent falls. KALPANA HA DPM [address], [place], [address], [facility] 10/08/2023 15:08:58 OBGyn Episode No OBEpisode recorded.
--- OUTSIDE RECORDS SUMMARY | 2025-03-16 09:21 | XMS_ITS | Clinical Summary ---
Author Organization [facility] Address [address] [place] [address] Care Team Providers Care Computer Tester Name Role Phone Bryan Saenz MD Primary Care Provider [phone] Allergies Active Allergy Reactions Criticality Noted Date [...] 12/20/2022 - was following with Oncology in [place] and was under surveillance - has hx [...] 12/20/2022 - was following with Oncology in [place] and was under surveillance - has hx [...] of cdif and vit B12 deficiency with keno terminal operator use of PPI. - continue current management [...] of cdif and vit B12 deficiency with keno terminal operator use of PPI. - recheck labs, orders [...] prior location where she had mammogram in [place] so we can request an obtain records History of rectal cancer 12/23/2023 Resolved Problems Problem Noted Date Diagnosed Date Resolved Date Urinary tract infection in female 12/23/2023 03/03/2024 Encounters Date Type Department Care Team Description 12/24/2024 6:57 AM ANIMAL NUTRITION CONSULTANT - 12/24/2024 8:22 AM [facility] Emergency [facility] Emergency Department [address] [place] [address] Tracy Mohamud MD Chest wall muscle strain, [...] tarted: 1981 Tobacco Cessation:Counseling Given: Not Answered [facility] [employer] Answer Date Recorded In the past 12 [...] week 11/03/2024 How often do you attend [facility] or jewish services? More than 4 times per year 11/03/2024 Do you belong to any clubs o r organizations such as lutheran groups, unions, fraternal or athletic groups, or [...] any time in the past 12 m [facility], were you homeless or living in a correction (including now)? No 11/03/2024 Personal Safety Answer [...] Comments Blood Pressure 170/94 12/24/2024 8:00 AM ANIMAL NUTRITION CONSULTANT Pulse 80 12/24/2024 7:35 AM ANIMAL NUTRITION CONSULTANT Temperature 36.6 C (97.8 F) 12/24/2024 6:56 AM ANIMAL NUTRITION CONSULTANT Respiratory Rate 16 12/24/2024 7:35 AM ANIMAL NUTRITION CONSULTANT Oxygen Saturation 98% 12/24/2024 7:35 AM ANIMAL NUTRITION CONSULTANT Inhaled Oxygen Concentration - - Weight 90.7 kg (200 lb) 12/24/2024 6:56 AM ANIMAL NUTRITION CONSULTANT Height 171.5 cm (5' 7.5 ) 10/31/2024 10:55 PM CS T Body Mass Index 30.86 10/31/2024 10:55 PM ANIMAL NUTRITION CONSULTANT Plan of Treatment Health Maintenance Due Date [...] W PA CHEST ED 12/24/2024 7:43 AM ANIMAL NUTRITION CONSULTANT DEXA AXIAL SKELETON BONE DENSITY 1 OR [...] 3 or More Views (12/24/2024 7:43 AM ANIMAL NUTRITION CONSULTANT) Anatomical Region Laterality Modality Rib, Chest Left Computed Radiogr aphy 12/24/2024 7:52 AM ANIMAL NUTRITION CONSULTANT Narrative 12/24/2024 7:56 AM ANIMAL NUTRITION CONSULTANT EXAM DESCRIPTION: XR RIBS LEFT W PA [...] Bill Whiting M.D. KR: SOLANGE Report ID: [id number] Reading Location: [id number] Procedure Note Bill Whiting MD - 12/24/2024 [...] Bill Whiting M.D. KR: SOLANGE Report ID: [id number] Reading Location: [place] [address] Tracy Mohamud MD IMG XR PROCEDURES Final [...] with given history of: Postmenopausal state Screening. Steel Worker/Model: Adbrain (S/N [id number]) CLINICAL INFORMATION: Current height: 67 inches Maximum [...] David England M.D. MF: RICH Report ID: [id number] Reading Location: [id number] Procedure Note David England MD - 07/30/2024 EXAM DESCRIPTION: DEXA AXIAL SKELETON BONE DENSITY 1 OR MORE SITES REASON FOR STUDY: 63 y/o year old F with given history of:Postmenopausal state Screening. Steel Worker/Model: Adbrain (S/N 60178) CLINICAL INFORMATION: Current height: 67 inches Maximum [...] David England M.D. MF: RICH Report ID: [id number] Reading Location: [place] [address] Critical access hospital Brandan Juarez MD IM DXA PROCEDURES F [...] last revised on 2020. Testing performed by: [facility], [address] [place] [address], [place] [address] Blood 03/03/2024 10:1 0 AM CDT 03/03/2024 11:32 AM CDT us Kurt Talavera MD LAB MICROBIOLOGY - [facility] ORDERABLES Final Result JEMAL KEANE HEMPSTEAD) [address] [facility] Department [place] [address] from Last 3 Months or Most Recently Relevant to Health Maintenance Insurance [facility] [place] [employer] [place] [place] [place] Advance Directives For more information, please contact: [phone] * Full Code (Latest Code Status on File) Date Activated Date Inactivated Comments 10/31/2024 8:31 PM 11/03/2024 6:36 PM Care Teams Computer Tester Relationship Specialty Start Date End Date Bryan Saenz MD [address] HARK[place] B [address] [address] PCP - General Family Medicine 09/09/24
--- OUTSIDE RECORDS SUMMARY | 2025-03-16 09:21 | XMS_ITS | Clinical Summary ---
Author Organization [facility] Address [address] [place] [address] Phone Care Team Providers Care Ethylbenzene Cracking Supervisor Name Role Phone Bryan Saenz MD Primary Care Provider [phone] Social History Tobacco Use Types Packs/Day Years [...] topic Insurance MEDICARE C [employer] Care Teams Ethylbenzene Cracking Supervisor Relationship Specialty Start Date End Date Bryan Saenz MD [address] [facility] [address] [place] [address] PCP - General Family Medicine 07/29/24
--- OUTSIDE RECORDS SUMMARY | 2025-03-16 09:21 | XMS_ITS | Data Portability ---
Author Organization [facility] JOSEFAJocelyn Marte Address [address] [facility] [place] [address] Assessment Encounter Date Assessment Date Assessment LastModified by Organization Details LastModified Time 07/24/2024 07/24/2024 Pt moved here from [place] in December 2023 and is in need of regular oncological followup, such as she was receiving in [place]. [email or web address] Not available 07/29/2024 07:10:49 08/25/2024 08/25/2024 Pt is stable. 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 [email or web address] Not available 08/26/2024 15:55:41 11/19/2024 11/19/2024 Louisa [...] the pain, but it reoccurs after eating. [email or web address] Not available 11/19/2024 12:43:17 Plan of Treatment Reminders Order Date Submit Date Provider Last Modified By Organization Details Last Modified Time Details Appointments ANY 15 2024 10:15A Anish Saenz MD Not available Not available Not available Lab None record ed. Referral neurol ogist referr al [email or web address] - Neurology, [address], [address], [place], [address], 03/10/2025 13:53:59 oncolo gist referr al 2023 024 josé miguel tao Not available 07/29/2024 10:05:39 oncolo gist referr al - Histor y of rectum cancer , post surger y, unknow n pathol ogy, on remiss ion needs monito ring. 2023 024 josé miguel tao Devon Palmerhu, [address] [place], [address], 07/01/2024 17:29:01 Procedures None record ed. Surgeries None record ed. Imaging MAMMO, screen ing, digita l, bilate ral 2023 024 [facility], [address] [facility] [place], [address], 08/15/2024 12:20:19 DEXA, axial skelet on 2023 024 [facility], [address] [facility] [place], [address], 08/07/2024 10:04:34 Medication Orders None record ed. Patient TargetsNo targets recorded. Patient Instructions Encounter Date Encounter Id Patient Instructions Last Modified By Organization Details Last Modified Time 06/13/2024 [id number] A healthy lifest yle: care instructions Not available 06/13/2024 10:25:09 sleep apnea: car e instructions Not available 06/13/2024 10:38:49 On the date of t his encounter, I saw and examined the patient, personally verifying the nolasco and critical findings in the resident s note. I reviewed and agree with the resident/fellow s findings and plan. ~MD Mike [email or web address] Not available 06/13/2024 10:14:52 07/24/2024 [id number] mammogram: about this test [email or web address] Not available 07/24/2024 12:37:00 bladder training : care instructions [email or web address] Not available 07/24/2024 12:35:05 kegel exercises: care instructions [email or web address] Not available 07/24/2024 12:35:05 Stress Incontine nce: Care Instructions [email or web address] Not available 07/24/2024 12:35:05 gastroesophageal reflux disease (GERD): care instructions [email or web address] Not available 07/24/2024 12:35:05 high blood press ure: care instructions [email or web address] Not available 07/24/2024 12:35:05 learning about h igh blood pressure [email or web address] Not available 07/24/2024 12:35:05 08/25/2024 [id number] advance care planning: care instructions [email or web address] Not available 08/25/2024 12:35:37 preventing falls : care instructions [email or web address] Not available 08/25/2024 12:35:37 Quitting Tobacco : Care Instructions [email or web address] Not available 08/25/2024 12:35:37 [facility] Check[facility] [email or web address] Not available 08/25/2024 12:35:37 eating healthy foods: care instructions [email or web address] Not available 08/25/2024 12:35:37 AD8 Dementia Screening Interview [email or web address] Not available 08/25/2024 12:35:37 11/19/2024 [id number] A healthy lifest yle: care instructions Not available 11/19/2024 12:58:57 Reason for Referral History of rectum cancer, po st surgery, unknown pathology, on remission needs monitoring. Referring Physician: Betty Cantu, Crisis Therapist, Encounter Date: 06/13/2024 Referring Physician: Bryan johnson, Family Medicine, Encounter Date: 07/24/2024 Neurologist Referral for Fam maria luz history of dementia Referring Physician: Bryan Saenz, Family Medicine, Encounter Date: 07/24/2024 Results Created Date Observation Date Name Description Value Unit Range Abnormal Flag Note LastModifiedBy Organization Detail LastModifiedTime 08/07/20 24 07/30/2024 DEXA, axial skele ton No observ ation record ed[facility] [address] [facility] [place], [address], 08/12/2024 11:30:54 08/14/2007/30/2024 MAMMO , scree delmar, digit al, bilat eral No observ ation record ed. [facility] [address] [facility] [place], [address], 09/23/2024 12:12:49 Result Notes None recorded. Problems Name Problem SNOMED Code Status Onset Date Resolution Date Notes Provider Name and Address Organization Details Recorded Time Malignant neoplasm of rectum 851655578 Completed 202306/24/2024 BETTY CANTU MD Attn: Marga cuevas,[address] [facility], [place], [address], [place] - [facility] 4 09:39:55 Osteoarthri tis 069802424 Active 2023 BETTY CANTU MD Attn: Marga cuevas,[address] [facility], [place], [address], [place] [facility] 4 10:29:36 Essential hypertensio n 88897984 Active 2023 BETTY CANTU MD Attn: Marga cuevas,[address] [facility], [place], [address], [place] [facility] 4 10:37:34 Prediabetes 813997143 Active 2023 BTETY CANTU MD Attn: Marga cuevas,[address] [facility], [place], [address], [place] [facility] 4 09:40:12 Obesity 805357083 Active 2023 BETTY CANTU MD Attn: Marga cuevas,[address] [facility], [place], [address], [place] [facility] 4 09:40:04 Postmenopau joe [place] 60723611 Active 2023 BETTY CANTU MD Attn: Warrenann cuevas,[address], [place], [address], [place] - [facility] 4 09:40:07 Obstructive sleep apnea syndrome 65772220 Active 2023 BETTY CANTU MD Attn: Warrenann cuevas,[address], [place], [address], [facility] - [facility] 4 09:39:59 History of malignant neoplasm of rectum 706755038 Active 2023 BETTY CANTU MD Attn: Marga cuevas,[address] [facility], [place], [address], [facility] - [facility] 4 09:39:49 Problem Notes None recorded. Procedures Surgical History Date Name Laterality Status Provider Name and Address Organization Details Recorded Time 03/12/20 Colonoscopy with biopsy completed Josefina Meredith [place] - [facility] 03/12/2025 14:50:42 screening for malignant neoplasm of rectum completed Debra Padgett MA [place] - [facility] 06/13/2024 09:21:53 hysterectomy completed BETTY CANTU MD Attn: Accounting,[address] [facility], [place], [address], [facility] - [facility] 06/13/2024 09:35:16 Imaging Results Imaging Date Name Status LastModified by Organiz ation Details LastModified Time 07/30/2024 DEXA, axial skeleton completed [address] [place], [address], 08/12/2024 11:30:54 07/30/2024 MAMMO, screening, digital, bilateral completed [place] [address] [place], [address], 09/23/2024 12:12:49 Procedure Notes None recorded. Medical Equipment None Reported. Allergies Allergen ID Allergen Name Allergen Category Reaction Reaction Severity Criticality Documentation Date Start Date Code Code System Note Provider Name and Address Organization Details Recorded Time Product containin g penicilli n (product) medicatio n anaphylax is facial swelling rash Not available Not available Not available unabletoasse ss 06/13/2024 63773 8001 SNOMED BILLY Conway, [facility] 4 12:03:30 031374 diphenhyd ramine medicatio n vomiting Not available [facility] 06/13/2024 3498 RxNorm BILLY Conway, [facility] 4 12:03:04 030438 domiphen Not available vomiting Not available [facility] 06/13/2024 98401 RxNorm BILLY Conway, [facility] 4 12:03:16 008883 pravastat in medicatio n Not available Not available [facility] 06/13/2024 51393 RxNorm Pt. doesn 't remem paul what react ion it is. BILLY Conway, [facility] 4 12:04:17 Medications Name Sig Start Date [...] Address Organization Details Last Updated DateTime 4 19979.3 3 g 30.8 kg/m2 171.45 cm 97.2 [degF] 18 /min 94 % 94 % 91 /min 151 mm[Hg] 84 mm[Hg] eDbra Padgett [place] - [facility] 4 09:24:01 Date Recorded Systolic blood pressure Diastolic blood pressure Provider Name and Address Organization Details Last Updated DateTime 06/13/2024 143 mm[Hg] 81 mm[Hg] JOSUE Guerrero [facility] 06/13/2024 10:16:52 Date Recorded Body height Body mass index (BMI) Body weight Heart rate Respiratory rate Body temperature Systolic blood pressure Diastolic blood pressure Provider Name and Address Organization Details Last Updated DateTime 4 171.45 cm 31.1 kg/m2 34727.8 7 g 76 /min 18 /min 96.8 [degF] 126 mm[Hg] 81 mm[Hg] Jackie Khanna MA [facility] 12:30:32 Date Recorded Body height Body mass index (BMI) Body weight Oxygen saturation Oxygen saturation in Arterial blood by Pulse oximetry Heart rate Respiratory rate Body temperature Provider Name and Address Organization Details Last Updated DateTime 4 171.45 cm 31 kg/m2 38851.0 7 g 93 % 93 % 80 /min 16 /min 97.2 [degF] Jackie Khanna MA [facility] 4 11:43:00 Date Recorded Systolic blood pressure Diastolic blood pressure Provider Name and Address Organization Details Last Updated DateTime 08/25/2024 150 mm[Hg] 90 mm[Hg] Bryan Saenz MD Attn: Accounting,[address] [place], [address], [facility] 08/25/2024 12:37:09 Date Recorded Body height Body mass index (BMI) Body weight Oxygen saturation Oxygen saturation in Arterial blood by Pulse oximetry Heart rate Respiratory rate Body temperature Systolic blood pressure Diastolic blood pressure Provider Name and Address Organization Details Last Updated DateTime 5 171.45 cm 30.6 kg/m2 67529.7 4 g 97 % 97 % 88 /min 16 /min 97.8 [degF] 148 mm[Hg] 82 mm[Hg] Jackie Khanna MA [facility] 5 12:34:12 Social History Question Answer Notes LastModified by Organizat ion Details LastModified Time Tobacco Smoking Status Former Smoker Pt. quit in 2013 Jackie Khanna MA null, [facility] 07/24/2024 12:22:13 Do You Have An Advance Directive? No Information not available 07/24/2024 Are You Blind Or Do You Have [...] No Information not available 07/24/2024 Are You Deaf [...] 7 Days, How Much Pain Have You [place]? Some Information not available 08/25/2024 In General, Would You Say You Health Is: Fair Information not available 08/25/2024 How Would You Describe The Condition Of Your Mouth And Teeth- Including False Teeth Or Dentures? Good Information not available 08/25/2024 Has Anyone Ever Told You That You Snore? Yes Information not available 08/25/2024 In The Past 7 Days, How Often Have You [place] Sleepy In The Daytime? Usually Information not [...] No Information not available 07/24/2024 Do You Use Sunscreen Routinely? No Information not available 07/24/2024 Has Tobacco Cessation Counseling Been Provided? No Information not available 07/24/2024 On What Date Was Tobacco Cessation Counseling Provided? 11/19/2024 Information not available 11/19/2024 How Many Years Have You Smoked Tobacco? 36 Information not available 07/24/2024 Sex: Female Functional Status Question Answer Note LastModified by Organizat ion Details LastModified Time Do you use any illicit or recreational drugs? No Information not available 06/13/2024 Do you or have you ever used any other forms of tobacco or nicotine? No Information not available 06/13/2024 What is your level of alcohol consumption? None Information not available 06/13/2024 Are you currently employed? No Retired Information not available 07/24/2024 Are you able to care for yourself? Yes Information not available 07/24/2024 What is your exercise level? Occasional Swimming 3 times a week Information not available 07/24/2024 Mental Status Question Answer Note LastModified by Organization D etails LastModified Time Do you feel stressed (tense, restless, nervous, or anxious, or unable to sleep at night)? [id number] Information not available 07/24/2024 Family History Relationship Description Onset Age of [...] Response Coronary Artery Disease N Other N High Blood Pressure Y Atrial Fibrillation N Thyroid Problems N Kidney or Bladder Problems N GI Problems Y Depression N COPD N Blood Clots N Have you had a mammogram in the last yea r? N Skin Problems N Eating Disorder N Anemia N Heart Attack ([place]) N Anxiety Disorder N Diabetes N Muscle, Joint, or Bone Problems N Arthritis Y Seizures/Epilepsy N Have you had a colonoscopy in the last 1 0 years? N Acid Reflux (GERD) Y Cancer Y Stroke N Asthma N Allergies Y Have you had a PSA blood test in the las t year? N ADHD N Substance Abuse N High Cholesterol Y Hepatitis N Liver Disease N Schizophrenia N Headaches N Heart Failure N Osteoporosis N Gynecological [...] LNP-S, bivalent, PF, 10 mcg/0.2 mL 10/08/2021 BILLY Escobar, [place] - [facility] 07/24/2024 12:36:32 COVID-19, mRNA, [...] 07/24/2024 12:40:56 Hep A, adult 08/07/2017 completed BILLY [place], [place] [facility] 07/24/2024 12:41:37 Influenza, high-dose, trivalent, PF 07/24/2024 completed BILLY [place], [place] [facility] 07/24/2024 13:23:11 Past Encounters Encounter ID Performer Location Encounter Start Date Encounter Closed Date Diagnosis/Indication Diagnosis SNOMED-CT Code Diagnosis ICD10 Code Diagnosis Note [id number] MD Navin Patino 14 IM [address] [facility] [address] [place] [address] 06/13/2024 08:53:15 06/25/2024 15:42:41 Obesity 406994446 E66.8 -Recommend continued lifestyle modificati ons & exercise >150mins/w k- Recommend adding fresh fruits and vegetables and avoiding sugary drinks. Adult heal th examination 288479234 Z00.00 -Patient doing well overall.-M ove to [place] in December 2023 from [place] .-Discusse d preventive measure: ordering DEXA scan and Mammograph y today.-Rec ommended pneumococc al vaccine, waiting for immunizati on records. Screening mammography 24 246676 Z12.31 -Will contact patient once results are received. Osteoarthritis 973929347 M19.90 Postmenopausal state 764 89681 Z78.0 -Will contact patient once results are received. Essential hypertension 11366467 I10 -BP: 151/84 Repeat: 143/81-Con tinue current medication s as prescribed .-Follow up at next visit. Prediabetes 067200164 R7 3.03 -A1C two weeks ago was 6.2 at previous PCP office. Obstructiv e sleep apnea syndrome 64184495 G47.33 -Pt desires a re measure on CPAP, not using current CPAP machine.-D iagnosed more than a year ago.-Cory gilbert records signed, waiting on documentat ion. History of malignant neoplasm of rectum 028586633 Z85.048 -Referral to oncology for monitor of disease.-P revious patient of brandon Howard no longer in network with new insurance. [id number] MD Navin Jiang 14 IM [address] [facility] [place] [address] 07/24/2024 11:43:30 07/29/2024 11:12:12 Benign essential hypertension 9689867 I10 Female str ess incontinence 89510062 N39.3 Gastroesop hageal reflux disease 520208433 K21.9 History of malignant neoplasm of rectum 652788070 Z85.048 surgery was in ; pt moved here in Screening mammography 24 831438 Z12.31 scheduled Influenza immunization advised 195177945 Z71.85 Family his tory of dementia 478851648 Z81.8 [id number] MD Navin Jiang 14 IM [address] [facility] [place] [address] 08/25/2024 11:32:38 09/03/2024 10:06:39 Adult health examination 259627184 Z00.00 Health Risk Assessment collected and reviewed [id number] MD Navin Jiang 14 IM [address] [facility] [place] [address] 11/19/2024 12:14:21 11/25/2024 14:58:51 Obesity 127116826 E66.9 BMI=30.6 Atypical chest pain 1025 70223 R07.89 now resolved; recent ER workup was negative for a cardiac source History of malignant neoplasm of rectum 197359693 Z85.048 pt has an upcoming appt with the specialist in [facility] Concerns Section Related Observation LastModified by Organization Detai ls LastModified Time None Recorded Concern Status LastModified by Organization Details LastModified Time None Recorded Advance Directives Directive N: Payers Encounter Date Sequence Insurance Name Policy Number Policy Sears Covered Member ID Sears Member ID Guarantor Name 06/13/2024 1 [facility] (MEDICARE REPLACEMENT/A DVANTAGE - HMO) [id number] Louisa Ochoa [id number] Louisa Ochoa 07/24/2024 1 [facility] (MEDICARE REPLACEMENT/A DVANTAGE - HMO) [id number] Louisa Ochoa [id number] Louisa Ochoa 08/25/2024 1 [facility] (MEDICARE REPLACEMENT/A DVANTAGE - HMO) [id number] Louisa Ochoa [id number] Louisa Ochoa 11/19/2024 1 [facility] (MEDICARE REPLACEMENT/A DVANTAGE - HMO) [id number] Louisa Ochoa [id number] Louisa Ochoa Notes Date Note Type Note [...] like to establish care with dentist and hand singer.Denies alcohol intake, smoking or recreational drugs.Denies anxiety or depression symptoms. Has good support if needed. Guerita Long MD Attn: Accounting,[address] [place], [address], [facility] - [facility] 06/24/2024 18:48:08 07/24/2024 text/html Pt is transferri ng to this PCP. Bryan Saenz MD Attn: Accounting,[address] [facility], [place], [address], [facility] - [facility] 07/29/2024 07:15:12 08/25/2024 text/html Followup to last visit. Bryan Saenz MD Attn: Accounting,[address] [facility], [place], [address], [facility] 08/26/2024 15:56:38 11/19/2024 text/html Louisa Ochoa is [...] eating. Bryan Saenz MD Attn: Accounting,[address] [facility], [place], [address], [facility] 11/21/2024 16:52:17 OBGyn Episode No OBEpisode recorded.
--- OUTSIDE RECORDS SUMMARY | 2025-03-16 09:21 | XMS_ITS | Referral Summary ---
Author Organization [facility] Address [address] [place] [address] Care Team Providers Care Corporate Quality Manager Name Role Phone Bryan Saenz MD Primary Care Provider [phone] Encounters Date Type Department Care Team Description 12/24/2024 6:57 AM MARKETING PROJECT COORDINATOR - 12/24/2024 8:22 AM MARKETING PROJECT COORDINATOR Emergency [facility] Emergency Department 1 [place] [address] Tracy Mohamud MD Chest wall [...] 12/20/2022 - was following with Oncology in [place] and was under surveillance - has hx [...] 12/20/2022 - was following with Oncology in [place] and was under surveillance - has hx [...] of cdif and vit B12 deficiency 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 - recheck labs, orders [...] prior location where she had mammogram in [place] so we can request an obtain records [...] tarted: 1979 Tobacco Cessation:Counseling Given: Not Answered [facility] Utilities Answer Date Recorded In the past 12 months has [employer], gas, oil, or water company threatened to [...] often do you attend chur ch or druze services? More than 4 times per year 11/03/2024 Do you belong to any clubs o r organizations such as cheondoism groups, unions, fraternal or athletic groups, or [...] any time in the past 12 m [facility], were you homeless or living in a nursing home (including now)? No 11/03/2024 Personal Safety Answer [...] Comments Blood Pressure 170/94 12/24/2024 8:00 AM MARKETING PROJECT COORDINATOR Pulse 80 12/24/2024 7:35 AM MARKETING PROJECT COORDINATOR Temperature 36.6 C (97.8 F) 12/24/2024 6:56 AM MARKETING PROJECT COORDINATOR Respiratory Rate 16 12/24/2024 7:35 AM MARKETING PROJECT COORDINATOR Oxygen Saturation 98% 12/24/2024 7:35 AM MARKETING PROJECT COORDINATOR Inhaled Oxygen Concentration - - Weight 90.7 kg (200 lb) 12/24/2024 6:56 AM MARKETING PROJECT COORDINATOR Height 171.5 cm (5' 7.5 ) 10/31/2024 10:55 PM CS T Body Mass Index 30.86 10/31/2024 10:55 PM MARKETING PROJECT COORDINATOR Plan of Treatment Not on file Procedures Procedure Name Priority Date/Time Associated Diagnosis Comments XR RIBS LEFT W PA CHEST ED 12/24/2024 7:43 AM MARKETING PROJECT COORDINATOR DEXA AXIAL SKELETON BONE DENSITY 1 OR [...] 3 or More Views (12/24/2024 7:43 AM MARKETING PROJECT COORDINATOR) Anatomical Region Laterality Modality Rib, Chest Left Computed Radiogr aphy 12/24/2024 7:52 AM MARKETING PROJECT COORDINATOR Narrative 12/24/2024 7:56 AM MARKETING PROJECT COORDINATOR EXAM DESCRIPTION: XR RIBS LEFT W PA [...] Bill Whiting M.D. KR: SOLANGE Report ID: [id number] Reading Location: [id number] Procedure Note Bill Whiting MD - 12/24/2024 [...] Bill Whiting M.D. KR: SOLANGE Report ID: [id number] Reading Location: [place] [address] Tracy Mohamud MD IMG XR PROCEDURES Final [...] with given history of: Postmenopausal state Screening. Tripoler/Model: Mojostreet (S/N [id number]) CLINICAL INFORMATION: Current height: 67 inches Maximum [...] David England M.D. MF: RICH Report ID: [id number] Reading Location: [place] [address] Procedure Note David England MD - 07/30/2024 EXAM DESCRIPTION: DEXA AXIAL SKELETON BONE DENSITY 1 OR MORE SITES REASON FOR STUDY: 63 y/o year old F with given history of:Postmenopausal state Screening. Tripoler/Model: Spotplex Discovery SL (S/N [id number]) CLINICAL INFORMATION: Current height: 67 inches Maximum [...] David England M.D. MF: RICH Report ID: [id number] Reading Location: [place] [address] Betty Juarez MD [facility] DXA PROCEDURES F inal Result * Screening [...] the axillae or elsewhere. Betty Juarez MD [facility] MAMMO PROCEDURES Final Result * Hepatitis C [...] last revised on 2020. Testing performed by: [facility], [address] [place] [address]., [address] Blood 03/03/2024 10:1 0 AM CDT 03/03/2024 11:32 AM CDT Kurt Talavera MD LAB MICROBIOLOGY - GENE RAL ORDERABLES Final Result [facility]) [address] [facility] Department [place] [address] from Last 3 Months or Most Recently Relevant to Health Maintenance Insurance [facility] [place] [address] [facility] [place] [facility] [place] Advance Directives For more information, please contact: [phone] * Full Code (Latest Code Status on File) Date Activated Date Inactivated Comments 10/31/2024 8:31 PM 11/03/2024 6:36 PM Care Teams Corporate Quality Manager Relationship Specialty Start Date End Date Bryan Saenz MD [address] [facility] [address] [place] [address] [address] PCP - General Family Medicine 09/09/24
--- OUTSIDE RECORDS SUMMARY | 2025-03-16 09:21 | XMS_ITS | Clinical Summary ---
Author Organization [facility] Lakesha Perez Address [address] [address] Care Team Providers Care Outboard System Operator Name Role Phone Unavailable Primary Care Provider [...] ST[facility] ABSTRACTION Provider, Abstract 12/24/2024 4:30 PM WIRELINE OPERATOR Telephone Check Up [facility] Oncology and Hematology [facility] [address] [place] [address] Ken Eller MD 12/24/2024 External Device Data [facility] ABSTRACTION Provider, Abstract 12/24/2024 External Device Data [facility] ABSTRACTION Provider, Abstract 12/23/2024 External Device Data [facility] ABSTRACTION Provider, Abstract 12/23/[address] [facility] Oncology and [facility] [address] [place] [address] Ken Eller MD 12/23/[address] [facility] Oncology and [facility] [address] [place] [address] Ken Eller MD from Last 3 Months Social History Tobacco [...] on file Legal Sex Female 12:06 PM WIRELINE OPERATOR Gender Identity Not on file Sexual Orientation Not on file Last Filed Vital Signs Vital Sign Reading Time Taken Comments Blood Pressure 159/81 12/16/2024 1:43 PM WIRELINE OPERATOR took medication late has not kicked in Pulse 72 12/16/2024 1:43 PM WIRELINE OPERATOR Temperature 36.3 C (97.3 F) 12/16/2024 1:43 PM WIRELINE OPERATOR Respiratory Rate - - Oxygen Saturation 95% 12/16/2024 1:4 3 PM WIRELINE OPERATOR Inhaled Oxygen Concentration - - Weight 88.5 kg (195 lb) 12/16/2024 1:43 PM WIRELINE OPERATOR Height 170.2 cm (5' 7 ) 12/16/2024 1:43 PM WIRELINE OPERATOR Body Mass Index 30.54 12/16/2024 1:43 PM WIRELINE OPERATOR Plan of Treatment Upcoming Encounters Date Type Department Care Team (Late st Contact Info) Description 03/25/2025 2:45 PM CDT Office Visit [facility] Oncology and Hematology - [place] [address] [facility] [address] [place] [address] Ken Eller MD [address] [facility] [address] [place] [address] Health Maintenance Due Date Last [...] ) (1 - 1-dose 75+ series) 2033 [place] [address] GENERIC MEDICARE MANAGED CARE
[2025-03-16 09:49] LABS: Estimated Glomerular Filt Rate 55
== END 2025-03-16 09:12 | disposition home or self-care (01) ==
PROVIDERS: PCP Family Medicine; Visit Provider Internal Medicine Hematology & Oncology
DX: C20 Malignant neoplasm of rectum (principal)
CPT/HCPCS: 74177; Q9967